=== PATIENT | male | born 1960 | race Caucasian/White ===

== ENCOUNTER 2016-03-26 01:06 | Inpatient (IN) | payer OTHER, MEDICAID ==
--- NOTE | 2016-03-26 01:28 | EDPHY ---
H & P Time Seen by Provider: 03/26/16 01:24 HPI/ROS: CHIEF COMPLAINT: Cardiac arrest HISTORY OF PRESENT ILLNESS: The patient is a 55-year-old man who comes in as a cardiac arrest by EMS. He is at the long-term with a history of schizophrenia and advanced melanoma. He is a full code. He apparently coded in front of the nursing staff at the long-term. They started CPR with chest compressions only. They did this for 3 minutes until pulses returned. He made the did not have any monitoring or rescue breaths. For EMS he was moderately combative and got a small amount of Versed. Here he is obtunded with occasional spontaneous respirations and hypotensive. REVIEW OF SYSTEMS: unable to obtain secondary to condition EXAM: GENERAL: Cachectic, unresponsive HEAD: Atraumatic, normocephalic. EYES: Pupils fixed and dry cornea , hemorrhagic conjunctiva. ENT: TMs normal, nares patent, oropharynx clear without exudates. Poor dentition Moist mucous membranes. NECK: Normal range of motion, supple without lymphadenopathy or JVD. LUNGS: Breath sounds clear to auscultation bilaterally with bagging HEART: Regular rate and rhythm without murmurs, rubs or gallops. ABDOMEN: Soft, nontender, normoactive bowel sounds. No guarding, no rebound. No masses appreciated. BACK: No CVA tenderness, no spinal tenderness, step-offs or deformities EXTREMITIES: No spontaneous movement, dry NEUROLOGICAL: No spontaneous movement, GCS 3 PSYCH: Unobtainable SKIN: Cold periphery Source: EMS, [facility] records Exam Limitations: Clinical condition - Medical/Surgical History Hx Asthma: No Hx Chronic Respiratory Disease: No Hx Diabetes: No Hx Cardiac Disease: No Hx Renal Disease: No Hx Cirrhosis: No Hx Alcoholism: No Hx HIV/AIDS: No Hx Splenectomy or Spleen Trauma: No Other PMH: schitzo affective, GERD, melenoma, DM, DVT, smoker - Family History Significant Family History: No pertinent family hx - Social History Smoking Status: Current every day smoker Constitutional: Initial Vital Signs Heart Rate 66 03/26/16 07:00 Respiratory Rate 22 H 03/26/16 07:00 Blood Pressure 109/58 L 03/26/16 07:00 O2 Sat (%) 100 03/26/16 07:00 Allergies/Adverse Reactions: lorazepam [From Ativan] Allergy (Intermediate, Verified 01/28/16 21:49) Other-Enter Comments Home Medications: Medication Instructions Recorded Betamethasone/Propylene Glyc 1 emery TP Q12 PRN 01/28/16 [Betamethasone Dp Aug 0.05% Crm] Desmopressin [DDAVP 0.1 mg (*)] 0.2 mg PO HS 01/28/16 Escitalopram Oxalate [Lexapro] 20 mg PO HS 01/28/16 Ibuprofen [Motrin (*)] 400 mg PO DAILY PRN 01/28/16 Magnesium Hydroxide [Milk of 30 ml PO DAILY PRN 01/28/16 Magnesia (*)] Metformin HCl 500 mg PO BIDMEAL 01/28/16 [place]-3 Fatty Acids [Fish Oil 1000 1,000 mg PO BID 01/28/16 mg (*)] Omeprazole [Prilosec 20 mg] 20 mg PO DAILY 01/28/16 Polyethylene Glycol 3350 [Miralax 17 gm PO DAILY 01/28/16 17 gm (*)] Polyethylene Glycol 3350 [Miralax 17 gm PO DAILY PRN 01/28/16 17 gm (*)] Sennosides/Docusate Sodium 2 each PO BID 01/28/16 [Senna-Docusate Sodium Tablet] Simvastatin [Zocor] 20 mg PO HS 01/28/16 buPROPion XL [Wellbutrin 150mg XL] 300 mg PO DAILY 01/28/16 cloZAPine [Clozaril (*)] 200 mg PO DAILY 01/28/16 Clotrimazole 1% [Lotrimin 1%] 1 emery TP BID 03/26/16 Ergocalciferol (Vitamin D2) 50,000 unit PO Q30D 03/26/16 [Vitamin D2] Herbals/Supplements -Info Only 1 ea PO DAILY 03/26/16 Loperamide HCl [Loperamide] 2 mg PO PRN PRN 03/26/16 Paliperidone [Invega 9mg ER (*)] 9 mg PO BID 03/26/16 cloZAPine [Clozaril (*)] 250 mg PO HS 03/26/16 Medical Decision Making - Diagnostics EKG Interpretation: An EKG obtained and was read and documented in trace view. Please see trace view for full reading and report. Sinus rhythm, no sign of ST elevation A right-sided EKG obtained and was read and documented in trace view. Please see trace view for full reading and report. No acute ischemic change Imaging: Results: CT scan of the head was obtained. The results of the study are negative. The study was read by Dr. Karel Sampson. I viewed the images myself on the PACS system. Results: CT scan of the chest was obtained. The results of the study are negative for PE , bilateral atelectasis versus infiltrate. The study was read by Dr. Karel Sampson. I viewed the images myself on the PACS system. Procedures: Procedure: Central line placement. Indication: Post arrest cooling. Emergency consent A timeout was observed and patients identity and correct procedure location confirmed. Full maximal sterile barrier technique was uses including cap, gown, sterile gloves, large sheet, hand washing and chlorhexidine prep. The right femoral vein was punctured with a 19 gauge finder needle, using ultrasound guidance then a cool line was placed using standard Seldinger technique. There were no complications. Blood return low pressure, dark blood. Patient tolerated procedure well. The procedure was performed by myself. Intubation: emergent intubation. While manually bagging the patient and maintaining the airway, The patient was sedated with 20 mg of Etomidate and paralyzed with 100 mg of rocuronium. A 7.5 endotracheal tube was placed using the 3. Mac. It was placed at 23 cm at the teeth. Placement was confirmed by direct visualization, good color change, and bilateral breath sounds with absent gastric sounds. Chest x-ray is pending. Saturations improved significantly and the procedure was successful. Procedure: Arterial line placement. Indication: Art line. Emergency consent. A timeout was observed and patients identity and correct procedure location confirmed. Full maximal sterile barrier technique was uses including cap, gown, sterile gloves, large sheet, hand washing and chlorhexidine prep. The area anesthetized with 1% lidocaine. The left femoral artery was punctured with a 19 gauge finder needle, then a arterial line was placed using standard Seldinger technique. There were no complications. Blood return low pressure, dark blood. Patient tolerated procedure well. The procedure was performed by myself. ED Course/Re-evaluation: Chart completed during downtime procedure. I discussed the case with Dr. Pili Frias. We will initially a cooling. We agreed on CT scan angio to rule out PE considering the patient's poor right ventricular function despite his elevated creatinine. We will continue to hydrate. 2:10 a.m. Pili Frias arrived. We discussed the case. I placed a central line in his right groin for cooling and initiation HACA protocol. Also placed a arterial line. 2:50 a.m. echocardiogram reveals right systolic dysfunction. Right-sided EKG reveals no acute STEMI. 2:55 a.m. Patient's pupils are fixed. Patient's troponin is negative. Spoke with Dr. Clinton who will admit. The patient is in septic shock and has received his 30 per kilos bolus and started on cefepime. Repeat lactate ordered. He is on Levophed and we are starting vasopressin. Differential Diagnosis: Partial list of the Differential diagnosis considered include but were not limited to; congestive heart failure, pneumonia, arrhythmia, sepsis and although unlikely based on the history and physical exam, I also considered seizure, drug overdose. Critical Care Time: I spent a total of 45 minutes of critical care time in obtaining history, performing a physical exam, bedside monitoring of interventions, collecting and interpreting tests and discussion with consultants but not including time spent performing procedures. - Data Points Laboratory Results: Laboratory Results 03/26/16 01:20 03/26/16 01:20 Microbiology Results: MICROBIOLOGY 03/26/16 01:55 Blood Blood Culture - Preliminary Medications Given: Discontinued Medications Fentanyl (Sublimaze) 50 mcg IVP ONCE ONE Stop: 03/26/16 02:01 Last Admin: 03/26/16 09:36 Dose: Not Given Norepinephrine 4 mg/ Dextrose 500 mls @ 0 mls/hr IV ONCE ONE; Per Protocol PRN Reason: Protocol Stop: 03/26/16 02:01 Last Admin: 03/26/16 09:27 Dose: 500 mls Cefepime HCl 1 gm/ Dextrose 50 mls @ 100 mls/hr IV Q12 ALENA Stop: 04/25/16 02:59 Last Admin: 03/27/16 09:13 Dose: 50 mls Vancomycin/Sodium Chloride (Vancomycin 1 Gm (Premix)) 250 mls @ 250 mls/hr IV ONCE ONE Stop: 03/26/16 03:59 Last Admin: 03/26/16 09:44 Dose: Not Given Sodium Chloride (Ns) 1,000 mls @ 0 mls/hr IV ONCE ONE PRN Reason: Wide Open Stop: 03/26/16 02:01 Last Admin: 03/26/16 09:44 Dose: Not Given Potassium Chloride (Potassium Cl 20 Meq (Premix)) 50 mls @ 50 mls/hr IV ONCE ONE Stop: 03/26/16 10:38 Last Admin: 03/26/16 09:50 Dose: 50 mls Potassium Chloride (Potassium Cl 10 Meq (Premix)) 50 mls @ 50 mls/hr IV ONCE ONE Stop: 03/26/16 18:29 Last Admin: 03/26/16 18:01 Dose: 50 mls Potassium Chloride (Potassium Cl 20 Meq (Premix)) 50 mls @ 25 mls/hr IV ONCE ONE Stop: 03/26/16 19:29 Last Admin: 03/26/16 17:12 Dose: 50 mls Potassium Chloride (Potassium Cl 20 Meq (Premix)) 50 mls @ 50 mls/hr IV Q1H ALENA Stop: 03/27/16 05:16 Last Admin: 03/27/16 05:27 Dose: 50 mls Miscellaneous Information (Message To [facility]) 1 ea MISC ONCE ONE Stop: 03/26/16 02:01 Last Admin: 03/26/16 10:42 Dose: Not Given Sodium Bicarbonate (Sodium Bicarbonate) 50 meq IVP ONCE ONE Stop: 03/26/16 09:19 Last Admin: 03/26/16 09:43 Dose: Not Given Sodium Bicarbonate (Sodium Bicarbonate) 50 meq IV ONCE ONE Stop: 03/26/16 10:01 Last Admin: 03/26/16 09:30 Dose: 50 meq Departure - Departure Disposition: [facility] Acute Clinical Impression: Cardiac arrest, Septic shock Condition: Critical
[2016-03-26 01:30] LABS: ABSOLUTE NRBC COUNT 0.02 10^3/uL (0-0.01); ADD DIFF? YES; ADD MORPH? NO; ATYPICAL LYMPHOCYTE FLAG 200 (0-99); FRAGMENT RBC FLAG 0 (0-99); HEMATOCRIT 52.5 % (40.0-51.0); HEMOGLOBIN 17.3 g/dL (13.7-17.5); LEFT SHIFT FLG 300 (0-99); LIPEMIA HEMOLYSIS FLAG 80 (0-99); MEAN CELL HEMOGLOBIN 29.4 pg (27.9-34.1); MEAN CELL VOLUME 89.1 fL (81.5-99.8); MEAN PLATELET VOLUME 9.5 fL (8.7-11.7); NRBC-AUTO% 0.1 % (0.0-0.2); PLATELET CLUMPS FLAG 0 (0-99); PLATELET COUNT 385 10^3/uL (150-400); RED BLOOD CELL COUNT 5.89 10^6/uL (4.40-6.38); RED CELL DISTRIBUTION WIDTH 13.7 % (11.5-15.2)
[2016-03-26] MEDS ORDERED: IOPAMIDOL (ISOVUE 370) 100 ML BTL IV ONE (01:30)
[2016-03-26 01:31] LABS: ADD SCAN? NO
[2016-03-26 01:43] LABS: ALANINE AMINOTRANSFERASE 44 IU/L (21-72); ALBUMIN 3.5 g/dL (3.5-5.0); ALKALINE PHOSPHATASE 182 IU/L (38-126); ANION GAP 22 mEq/L (8-16); ASPARTATE AMINOTRANSFERASE 31 IU/L (17-59); BILIRUBIN,TOTAL 0.7 mg/dL (0.1-1.4); BILIRUBIN-CONJUGATED 0.6 mg/dL (0.0-0.5); BILIRUBIN-UNCONJUGATED 0.1 mg/dL (0.0-1.1); CALCIUM 11.5 mg/dL (8.5-10.4); CARBON DIOXIDE 20 mEq/l (22-31); CHLORIDE 97 mEq/L (97-110); ETHANOL SERUM < 10 mg/dL (0-10); GLOMERULAR FILTRATION RATE 22; GLUCOSE 198 mg/dL (70-100); POTASSIUM 4.4 mEq/L (3.5-5.2); SODIUM 139 mEq/L (134-144); TOTAL PROTEIN 6.7 g/dL (6.3-8.2)
[2016-03-26 01:54] LABS: TROPONIN I < 0.012 ng/mL (0-0.034)
[2016-03-26] MEDS ORDERED: NS 250 ML IV PRN (02:00)
[2016-03-26] MEDS ORDERED: fentaNYL 100 MCG/2 ML INJ IVP ONE (02:00)
[2016-03-26] MEDS ORDERED: NOREPINEPHRINE BITARTRATE 4 MG in D5W 500 ML IV ONE (02:00)
[2016-03-26] MEDS ORDERED: NS 1,000 ML IV SCH ×2 (02:00→03:00)
[2016-03-26] MEDS ORDERED: MIDAZOLAM 2 MG/2 ML VIAL IVP PRN (02:00)
[2016-03-26] MEDS ORDERED: NS 1,000 ML IV ONE (02:00)
[2016-03-26] MEDS ORDERED: niCARdipine/NACL 200 ML IV PRN (02:00)
[2016-03-26] MEDS ORDERED: VECURONIUM BROMIDE 50 MG in D5W 50 ML IV SCH (02:00)
[2016-03-26] MEDS ORDERED: PROPOFOL/EMULSION 50 ML IV SCH (02:00)
[2016-03-26] MEDS ORDERED: NARCOTIC DRIP BAG-TOTAL ALL TYPES IV PRN (02:00)
[2016-03-26] MEDS ORDERED: USE *INSINTENS FOR HYPOGLYCEMIA ORDERS MISC ONE (02:00)
[2016-03-26] MEDS ORDERED: VANCOMYCIN HCL/NORMAL SALINE 250 ML IV ONE (03:00)
[2016-03-26] MEDS ORDERED: MAGNESIUM SULF 2 GM/WATER 50 ML BAG IV ONE (03:12)
[2016-03-26] MEDS ORDERED: ROCURONIUM 100 MG/10 ML VIAL ONE (03:21)
[2016-03-26] MEDS ORDERED: ETOMIDATE 40 MG/20 ML INJ ONE (03:21)
--- NOTE | 2016-03-26 05:09 | CPEKG ---
Heart Rate: 88 RR Interval: 682 P-R Interval: 148 QRSD Interval: 104 QT Interval: 396 QTC Interval: 480 P [place]: 57 QRS [place]: 102 T Wave [place]: 69 EKG Severity - ABNORMAL ECG - EKG Impression: SINUS RHYTHM EKG Impression: PROBABLE RIGHT VENTRICULAR HYPERTROPHY EKG Impression: BORDERLINE PROLONGED QT INTERVAL Electronically Signed By: Nishant Lester 27-Mar-2016 08:34:25
--- NOTE | 2016-03-26 05:10 | GHP ---
[f rep st] HISTORY AND PHYSICAL DATE OF ADMISSION: 03/26/2016 HISTORY OF PRESENT ILLNESS: The patient is a 55-year-old gentleman, with a history of schizoaffective disorder, malignant melanoma, and hyponatremia, who collapsed in front of the nursing station today at [place], where he has lived since 2013. Nurse felt no pulse, began CPR, got a pulse back. EMS was summoned. He was brought to the emergency room. Here he was intubated. Patient is unresponsive despite no sedation at being intubated. His father is in the waiting room. He is his MD power of compliance attorney, who confirms full code. He does have a MOLST form. It sounds like he got chemotherapy last week. He has been having diarrhea. They were sending his C diff from the hospital. In the emergency department he had a bedside echo which showed hypokinetic RV, but still moving his left ventricle fine. He had a CT pulmonary embolism protocol given his collapse. It was negative for PE. There is possibly a small right lower lobe infiltrate, images interpreted by me, but there is no pneumothorax or other significant derangement. He is noted to be aneuric with an elevated BUN and creatinine of 58 and 3.0. Baseline is unknown given the current computer down time. REVIEW OF SYSTEMS: Complete 10-point review of systems could not be conducted given the patient's intubated and unresponsive status. ALLERGIES: Ativan. MEDICATIONS: Vitamin D, Wellbutrin, clotrimazole cream, fish oil, sounds like p.r.n. Imodium, milk of magnesia, MiraLAX, Clozaril, desmopressin, escitalopram , omeprazole, probiotics, simvastatin, metformin, Invega, betamethasone cream, ibuprofen. PAST MEDICAL HISTORY: 1. Hyponatremia but appears to be primary polydipsia. 2. Malignant melanoma status post incision of his right axilla. 3. Schizoaffective disorder. 4. DVT. 5. Osteoarthritis. 6. Reflux. 7. Nicotine dependence. 8. Possible diabetes. SOCIAL HISTORY: Lives in [place]. Lifelong smoker. Alcohol unknown. FAMILY HISTORY: Father is living. PHYSICAL EXAMINATION: VITAL SIGNS: Presenting vitals: The patient is hypotensive, afebrile, pulse 100s. GENERAL: He is intubated, sedated. Unresponsive. HEENT: Pupils are unreactive. His left eye appears to be deviated laterally. Mucous membranes are very dry. NECK: Supple without lymphadenopathy or JVD. LUNGS: Clear to auscultation anterolaterally. HEART: S1, S2. ABDOMEN: Soft. Bowel sounds are normal. There is no rebound or guarding. It is not rigid. EXTREMITIES: Lower extremities without edema. He has onychomycosis. SKIN: On his right axilla he has a well-healed surgical incision. NEUROLOGIC: The patient is unresponsive. Currently cool. LABS: ABG after intubation shows a pH 7.13 with a pCO2 of 53, pO2 of 330. Serum bicarb of 19. White count 17, hematocrit 52, platelets are 385,000. Sodium 139, potassium 4.4, chloride 97, bicarb 20, BUN 58, creatinine 3.0, glucose 198. Calcium is elevated at 11.5. Phosphorus is very elevated at 11. LFTs are relatively normal. Troponin is less than 0.012. Lipase elevated at 684. CT PE showed no PE. The lung parenchyma images interpreted by me, shows possible small right-sided infiltrate. EKG interpreted by me shows sinus at 88 with right axis deviation, slightly prolonged QRS. Borderline prolonged QT. No ST-T wave changes. Right side leads shows no ST elevation in V4R. Discussed the case with Dr. Chino Castro and Dr. Pili Frias. ASSESSMENT/PLAN: The patient is a 55-year-old gentleman, who presents with cardiac arrest. 1. Cardiac arrest. It is not clear if this actually represents cardiac arrest , but if it is appears to be consistent with either arrhythmia PEA (pulseless electrical activity). His absence of quick recovery argues against PEA, argues against the primary arrhythmogenic syncope and collapse. The patient does not have pulmonary embolism. He does not appear to be in acute coronary syndrome. His left ventricle and right ventricle are moving well on the echo. His profound notable finding is hypovolemia with acute kidney injury. He is being aggressively volume-resuscitated and beginning to make urine. For the time being the patient is profoundly hypovolemic and had PEA. 2. Question sepsis. I do not think the patient has sepsis as his primary issue. He does have a leukocytosis and a possible source of infection. He received cefepime 1 time, 1 g of vancomycin to follow. Will continue cefepime for presumed Healthcare-associated pneumonia (Hcap). 3. Acute kidney injury. The patient was having diarrhea. this is almost certainly pre renal . Will resuscitate and follow. He did receive contrast. This will complicate his renal failure, which was not emergent. 4. Metabolic respiratory acidosis. His vent rate has been turned up. 5. Cardiovascular. We will cycle his troponins. It will certainly rise given CPR in the current setting, but does not appear to be consistent with acute coronary syndrome (ACS). 6. Schizoaffective disorder. Continue his Clozaril when medications have been reconciled. 7. Prophylaxis. Subcu heparin three times daily. DISPOSITION: ICU. CODE: Full. /[id number]/MODL MTDD
--- NOTE | 2016-03-26 06:53 | CPEKG ---
Heart Rate: 85 RR Interval: 706 P-R Interval: 164 QRSD Interval: 104 QT Interval: 448 QTC Interval: 533 P [place]: 54 QRS [place]: 95 T Wave [place]: 51 EKG Severity - ABNORMAL ECG - EKG Impression: SINUS RHYTHM EKG Impression: BORDERLINE RIGHT AXIS DEVIATION EKG Impression: BORDERLINE T ABNORMALITIES, ANT-LAT LEADS EKG Impression: PROLONGED QT INTERVAL Electronically Signed By: Nishant Lester 27-Mar-2016 08:34:29
[2016-03-26] MEDS ORDERED: D5W 1,000 ML IV SCH (07:33)
[2016-03-26] MEDS ORDERED: INSULIN REGULAR HUMAN 100 UNIT in NS 100 ML IV SCH (07:33)
[2016-03-26] MEDS ORDERED: D50W 25 GM/50 ML SYR IVP PRN (07:33)
[2016-03-26 07:37] LABS: PLATELET ESTIMATE ADEQUATE (ADEQ)
[2016-03-26 07:39] LABS: BACTERIA TRACE /hpf (NONE SEEN); COLOR AMBER; HYALINE CASTS 25-50 /lpf (0-1); LEUKOCYTE ESTERASE,URINE NEGATIVE (NEGATIVE); MUCUS 1+ /lpf (NONE-1+); NITRITE,URINE NEGATIVE (NEGATIVE); RBC,URINE 50-182 /hpf (0-3)
[2016-03-26] MEDS ORDERED: PROTOCOL MAGNESIUM 1 DOSE IV PRN (07:46)
[2016-03-26] MEDS ORDERED: PROTOCOL POTASSIUM 1 DOSE MISC PRN (07:46)
[2016-03-26 07:55] LABS: ADD DIFF? YES; ADD MORPH? NO; FRAGMENT RBC FLAG 10 (0-99); HEMATOCRIT 40.5 % (40.0-51.0); HEMOGLOBIN 13.3 g/dL (13.7-17.5); LIPEMIA HEMOLYSIS FLAG 80 (0-99); MEAN CELL HEMOGLOBIN 28.9 pg (27.9-34.1); MEAN CELL HEMOGLOBIN CONCENTR. 32.8 g/dL (32.4-36.7); MEAN PLATELET VOLUME 8.8 fL (8.7-11.7); PLATELET CLUMPS FLAG 0 (0-99); PLATELET COUNT 274 10^3/uL (150-400)
[2016-03-26 07:55] LABS: BASE EXCESS -12.4 mEq/L (-2.5-2.5); BICARBONATE 17 mEq/L (22-26); MEASURED OXYGEN SATURATION 99 % (92-95); PCO2 53 mmHg (34-38); PO2 329 mmHg (65-75); TCO2 19 mEq/L (23-27)
[2016-03-26 07:56] LABS: ASSIST CONTROL YES
[2016-03-26 07:56] LABS: ATYPICAL LYMPHOCYTE FLAG 160 (0-99); LEFT SHIFT FLG 300 (0-99)
[2016-03-26 07:57] LABS: ADD SCAN? NO
[2016-03-26 07:57] LABS: O2 CONCENTRATIION 100 % (0-100); P/F RATIO 329 RATIO; TOTAL RATE 16
[2016-03-26 08:00] LABS: MACROCYTES 1+; PLATELET ESTIMATE ADEQUATE (ADEQ); TOXIC VACUOLIZATION PRESENT
[2016-03-26 08:02] LABS: ANION GAP 13 mEq/L (8-16); CALCIUM 8.1 mg/dL (8.5-10.4); CARBON DIOXIDE 15 mEq/l (22-31); CHLORIDE 110 mEq/L (97-110); CREATININE 2.3 mg/dL (0.7-1.3); GLOMERULAR FILTRATION RATE 29; GLUCOSE 255 mg/dL (70-100); MAGNESIUM 2.9 mg/dL (1.6-2.3); POTASSIUM 3.7 mEq/L (3.5-5.2); SODIUM 138 mEq/L (134-144)
[2016-03-26] MEDS: CEFEPIME HCL 1 GM in D5W 50 ML IV SCH ×3 (08:11→21:42)
[2016-03-26 08:14] LABS: TROPONIN I < 0.012 ng/mL (0-0.034)
[2016-03-26] MEDS ORDERED: fentanYL/NACL/100 ML BAG IV ONE (08:45)
--- NOTE | 2016-03-26 08:48 | GCON ---
[f rep st] CONSULTATION CARDIOLOGY CONSULT DATE OF CONSULTATION: 03/26/2016 He does see Oncology at [facility]. CHIEF COMPLAINT: Cardiac arrest. HISTORY OF PRESENT ILLNESS: The patient is a 55-year-old male with schizoaffective disorder, multip le myeloma in the midst of chemotherapy, chronic hyponatremia, ongoing tobacco abuse. History is ob tained from discussion with the patient's father, who is the medical power of district attorney, and scant re cords from [facility] as [facility] is currently down. The patient's father states that he "may have some heart problems and may have had a heart attack at some point in the past." He cannot give me any more details about this or whether the patient has stents or a history of arrhythmia. The patient underwent his 2nd chemotherapy treatment last week f or melanoma and was not doing well after this, mostly with diarrhea and shortness of breath by rani rodriguez from [place]. Late this evening, he was at the nurses station there and collapsed. On e of the nurses initiated CPR. When EMS arrived, he had a pulse and did not receive ACLS drugs or d efibrillation. He was brought to the ER and intubated by Dr. Castro. He had no purposeful movemen ts upon arrival, and therefore HACA protocol was initiated in the emergency department. The father does not think that the patient has been complaining of chest pain or other cardiac sympt oms except for perhaps shortness of breath as mentioned. REVIEW OF SYSTEMS: Unable as the patient is currently intubated and unresponsive. ALLERGIES: Lorazepam. PAST MEDICAL HISTORY: 1. Schizoaffective disorder, resides at [place]. 2. Multiple myeloma, undergoing chemotherapy. 3. History of chronic hyponatremia. 4. Diabetes, possibly related to medications. 5. History of venous thrombosis. 6. Arthritis. 7. GERD. 8. Nicotine dependence. 9. Possible coronary disease, although details are not known. MEDICATIONS: At this time are also not known. SOCIAL HISTORY: The patient does smoke cigarettes. He does not drink alcohol. FAMILY HISTORY: Father has mitral regurgitation. Mother of what sounds like cardiac complicat ions related to rheumatoid arthritis. PHYSICAL EXAM: VITAL SIGNS: Blood pressure is currently 80/50 on max dose Levophed, heart rate 85, oxygen saturation 99% on the vent. GENERAL: This is a disheveled, ill-appearing middle-aged male. HEENT: His pupils are fixed and dilated. He does not withdraw to painful stimulus. CARDIAC: Re gular rate and rhythm without murmur, rub, or gallop. LUNGS: Clear anteriorly and laterally. ABDO MEN: Distended but soft. Positive bowel sounds. EXTREMITIES: Cool without edema. He has onychom ycosis. LABORATORY DATA: White count is 16.9, hematocrit 52.5, and platelets are 385. Troponin negative. LFTs normal except for an alkaline phosphatase of 182. Lipase is also elevated at 648. Sodium 139, potassium 4.4, chloride 97, bicarb 20, BUN 58, creatinine 3.0 with an unknown baseline. Glucose is 198. Chest x-ray is pending post intubation. EKG shows sinus rhythm without acute ST abnormalities. His QT is borderline prolonged. His right-s ided EKG does not show ischemic changes. By report, head CT is negative for acute abnormality and chest CT is negative for pulmonary embolism . Bedside echo, reviewed by me: LV is normal in systolic function with no ischemic wall motion abnorm alities. His right ventricle is mildly dilated with mildly reduced systolic function. No significa nt valvular disease and no pericardial effusion. ASSESSMENT AND PLAN: A 55-year-old male with an unclear cardiac history status post witnessed arres t at [place]. This does not appear to be a primary acute coronary syndrome event, but arrhythmia is still on the differential diagnosis given his slightly prolonged QT interval. He has not had ec topy here. First troponin is negative. Other possibilities include metabolic derangement, although his current laboratories appear fairly normal except for his creatinine. It is possible that his p otassium at a cellular level is not normal, however. Would also check a magnesium. He could have h ad a primary respiratory event as well or primary neurological event. 1. Arrest: As discussed above. At this point, HACA protocol has been initiated. He will be trans ferred to the ICU. No indication for emergent cardiac catheterization, both because his EKG is denae schemic and his creatinine is 3. He is currently requiring significant vasopressor support. He als o does meet criteria for sepsis protocol. 2. Renal failure: Unknown baseline. He has been given fluids in the emergency department. We dirk suarez need to follow his electrolytes and his creatinine closely, may require renal consultation. 3. Malignant melanoma: He is followed at [facility]. Prognosis is not clear at this time. We will need to discuss with them. He was having significant diarrhea, so whether a com plication of his chemotherapy somehow is related to his arrest is possible. 4. Schizoaffective disorder: He is currently disabled and residing at [place]. The case was discussed with Dr. Castro, Dr. Clinton, and the patient's father who is the medical pow er of district attorney. At this time, his prognosis appears very guarded given his unfavorable neurological status. We will follow with you. /[id number]/MODL
[2016-03-26] MEDS ORDERED: FAMOTIDINE 20 MG/NACL 50 ML IV SCH (09:00)
[2016-03-26] MEDS: CHLORHEXIDINE GLUCONATE 15 ML UDL PO SCH ×2 (09:00→21:42)
[2016-03-26 09:09] LABS: BASE EXCESS -11.1 mEq/L (-2.5-2.5); BICARBONATE 16 mEq/L (22-26); MEASURED OXYGEN SATURATION 96 % (92-95); PCO2 40 mmHg (34-38); PO2 100 mmHg (65-75); TCO2 17 mEq/L (23-27)
[2016-03-26 09:18] LABS: POTASSIUM 3.7 mEq/L (3.5-5.2)
[2016-03-26] MEDS ORDERED: NA BICARBONATE 50 MEQ/50 ML VIAL ONE (09:18)
[2016-03-26] MEDS ORDERED: SODIUM BICARBONATE 50 MEQ/50 ML SYR IVP ONE (09:18)
[2016-03-26] MEDS: MIDAZOLAM HCL 50 MG in D5W 50 ML IV PRN ×2 (09:32→21:55)
[2016-03-26] MEDS ORDERED: POTASSIUM Cl (KCl) 50 ML IV ONE ×3 (09:39→17:30)
[2016-03-26] MEDS ORDERED: NA BICARBONATE 50 MEQ/50 ML VIAL IV ONE (10:00)
--- NOTE | 2016-03-26 10:01 | ECHO ---
[id number] + + [address] : : [place] [address] : : [phone] + + Adult Echocardiographic Report + --------+ :Name: PORTER GAN DStudy Date: 03/26/2016 07:55 AM : : Hospital Admission Number: [id number] Locat ion: ER2: :: 1960 Gender: Male : :Age: 55 yrs Race: WH : :Reason For Study: Eval LV Fx : :History: Cardiac Alert ER Stat : + --------+ MMode/2D Measurements \T\ Calculations IVSd: 0.97 cm LVIDd: 4.4 cm FS: 55.6 % LA dimension: 3.7 cm LVPWd: 1.1 cm LVIDs: 2.0 cm EDV(Teich): 88.7 ml ESV(Teich): 12.2 ml EF(Teich): 86.3 % Normal Measurement Values: + + :LVIDd (3.5-5.7cm) IVSd (0.6-1.1cm) LVPWd (0.6-1.1cm) Aortic Root (2.0-3.7cm)Left Atrium (1.5-4.0cm): :LV Vol(d) (76-115ml) LV Vol(s) (29-48ml) Ejec Fraction (50-65%)PV Daniel (0.6- 1.2m/s) TV Daniel (0.4-1.0m/s) : :MV E Daniel (0.8-1.0m/s)MV A Daniel (0.3-1.0m/s)LVOT Daniel (0.7-1.2m/s) Asc Ao Daniel ( 0.9-1.8m/s) : + + Left Ventricle The left ventricle is normal in size. There is normal left ventricular wall thickness. The left ventricular ejection fraction is normal. The left ventricular wall motion is normal. Right Ventricle The right ventricle is normal in size and function. Atria The left atrial size is normal. Right atrial size is normal. Mitral Valve The mitral valve is normal in structure and function. There is no evidence of mitral valve prolapse. There is no mitral valve stenosis. There is no mitral regurgitation noted. Tricuspid Valve The tricuspid valve is normal in structure and function. No tricuspid regurgitation. Aortic Valve The aortic valve is normal in structure and function. There is no aortic stenosis. There is no aortic insufficiency. Pulmonic Valve The pulmonic valve is normal in structure and function. There is no pulmonic valvular regurgitation. Great Vessels The aortic root is normal size. Pericardium/Pleural There is no pericardial effusion. Conclusion A complete two-dimensional transthoracic echocardiogram was performed (2D, M-mode, Doppler and color flow Doppler). The left ventricular ejection fraction is normal. The left ventricular wall motion is normal. The right ventricle is normal in size and function. The mitral valve is normal in structure and function. The tricuspid valve is normal in structure and function. The aortic valve is normal in structure and function. The aortic root is normal size. There is no pericardial effusion. This was during a emergent situation and Dr Pili Frias was in attendance to view for poor LV function or pericardial effusion. Final Reading Physician: Jo Boston signed on 03/26/2016 10:00 AM Ordering Physician: Alexis Clinton Performed By: Ramon Briones, CS
--- NOTE | 2016-03-26 10:33 | CT ---
Noncontrast Head CT 0 126 hours History: Unresponsive. Recent cardiac arrest and intubation. Technique: Standard noncontrast head CT protocol utilizing axial images was acquired through the ca lvarium. Images were reconstructed in multiple planes as well. Dose reduction techniques were utiliz ed. Comparison the prior CT study from 01/28/2016. Findings: The cerebral parenchyma has a normal attenuation throughout. There are no masses, intracra nial hemorrhage, subdural collections, or evidence of recent cerebral infarction. The bones are unr emarkable. The paranasal sinuses are clear. There is some loss of attenuation involving the left ant erior khadra. It is indeterminate if this could be related to artifact. Impression: 1. No acute intracranial abnormality seen. 2. Relative hypodensity involving the left anterior khadra that could just be related to artifact. If symptoms persist, consider repeat CT imaging or MRI as clinically directed. The study was performed as an emergency on-call case and discussed by telephone with Dr. Castro at 0 145 hrs. The final interpretation is concordant with the original communication.
--- NOTE | 2016-03-26 10:41 | CT ---
CT Pulmonary Angiogram 0 134 hours Clinical Indications: Unresponsive. Cardiac arrest and subsequent intubation. Technique: Thinly collimated multidetector helical CT imaging was performed through the chest while 75 mL Isovue-370 were injected intravenously without complication. The images were reconstructed i n multiple planes. Dose reduction techniques were utilized. Findings: CT Angiogram: There is no evidence of intraluminal thrombus within the pulmonary arterial system. T he thoracic aorta has a normal contour without evidence of aneurysm or dissection. There is no gene cardial effusion. The cardiac chambers are normal in appearance. CT Chest: There is poor inspiration with compressive changes at the lung bases right side greater th an left. Superimposed patchy infiltrates are felt to be possible but less likely were prominent on t he right. There are no pulmonary nodules. There has been development of a mildly prominent lymph no de in the right axilla anteriorly measuring about 20 x 8 mm on series 5, image 89 as well as nodular ity right lateral chest wall and location of previous surgery on image 104 measuring 17 x 12 mm.. T he visualized upper abdominal structures are unremarkable during arterial phase of imaging. Borderli ne splenomegaly is suspected. Skeletal system: There is stable minimal compression superior endplate of T4. Thickened trabecula ar e once again noted involving C7, T2, T7, and T10 compatible with incidental hemangiomas. There are n o lytic or sclerotic osseous lesions of significance. Impression: 1. No evidence of pulmonary embolus using CT protocol. 2. Poor inspiration with compressive changes at the lung bases right side greater than left. Superim posed mild patchy infiltrate is felt to be possible but less likely especially at the right lung bas e posteriorly. 3. Nodularity right lateral chest wall with mildly prominent lymph node right axilla. In this patien t with history of melanoma, consider possible reactive node secondary to recent surgical procedure v ersus possibility of local metastatic disease. The study was performed as an emergency on-call case and discussed by telephone with Dr. Castro at 0 155 hrs. The final interpretation is concordant with the original communication.
--- NOTE | 2016-03-26 10:54 | SOAPPROG ---
SOSTEFANY Progress Note Assessment/Plan: Assessment: 1. cardiac arrest..? etiology..no clear cut cardiac issues identified [facility] no past h/o cardiac problems continue HACA protocol..prognosis unknown Plan:1. HACA 03/26/16 10:51 Subjective: pt on HACA and stable..answered question to family member..no evidence of acs,cm , arrthymias..hemodynamically stable at this time Objective: Vital Signs Temp Pulse Resp BP Pulse Ox 62 24 H 104/66 99 03/26/16 10:00 03/26/16 10:00 03/26/16 10:00 03/26/16 10:00 Laboratory Results 03/26/16 05:00 03/26/16 08:30 Physical Exam - Physical Exam Respiratory: lungs clear (anteriorly) Cardiac/Chest: regular rate, rhythm, No edema ICD10 Worksheet Patient Problems: Problems Problem Status Onset Cardiac arrest Acute Septic shock Acute Bacteremia Acute Hyponatremia Acute Schizophrenia Acute
[2016-03-26] MEDS: NOREPINEPHRINE BITARTRATE 4 MG in D5W 500 ML IV PRN (11:14)
[2016-03-26 11:27] LABS: BASE EXCESS -8.2 mEq/L (-2.5-2.5); BICARBONATE 17 mEq/L (22-26); MEASURED OXYGEN SATURATION 97 % (92-95); PCO2 37 mmHg (34-38); PO2 119 mmHg (65-75); TCO2 18 mEq/L (23-27)
--- NOTE | 2016-03-26 11:34 | GCON ---
[f rep st] CONSULTATION ONLINE ADVERTISING DIRECTOR CONSULTATION REASON FOR ADMISSION: Respiratory failure, status post cardiac arrest, HACA protocol. HISTORY OF PRESENT ILLNESS: The patient is a 55-year-old, white male with extensive past medical hi story including schizoaffective disorder, DVT, melanoma, hyponatremia with polydipsia, tobacco abuse , gastroesophageal reflux disease, osteoarthritis. He apparently collapsed at the nurses station at [place]. CPR was begun, EMS was called. He was brought to the emergency room, subsequently int ubated, placed on mechanical ventilation. He was admitted to the intensive care unit and placed on HACA protocol. He is currently not sedated, unresponsive, on mechanical ventilation, and on HACA pr otocol. All history is gleaned from the medical record. PAST MEDICAL HISTORY: Significant for diabetes, gastroesophageal reflux disease, schizoaffective di sorder, hyponatremia, malignant melanoma, DVT, osteoarthritis. SOCIAL HISTORY: Unknown with the exception of tobacco abuse, unlikely alcohol use. MEDICATIONS: At home include ibuprofen, betamethasone cream, Invega, metformin, simvastatin, probio tics, omeprazole, escitalopram, desmopressin, Clozaril, MiraLAX, milk of magnesia, vitamin D, Wellbu bebeto. PHYSICAL EXAM: VITAL SIGNS: Blood pressure is 117/63, pulse 65, respirations 22, oxygen saturation is 100% on mechanical ventilation. GENERAL: Well-developed 55-year-old male, who is obtunded, on mechanical ventilation. HEENT: Eyes: Pupils are wide and unreactive. Throat: Endotracheal tube is in good position. NECK: Supple. There is no cervical adenopathy. HEART: Regular rate and rhy thm with a 2/6 systolic murmur at the left sternal border without radiation. LUNGS: Diminished luca ath sounds but no wheeze. ABDOMEN: Soft, nontender. Bowel sounds are present in all 4 quadrants. EXTREMITIES: No clubbing, cyanosis, or edema. LABORATORY DATA: White count 11.9, hemoglobin 13, hematocrit 40, platelet count is 274. Sodium 138 , potassium 3.7, chloride 110, CO2 of 17, BUN 51, creatinine 2.3, glucose is 255. Lipase is elevate d at 648. Urinalysis pH 5, specific gravity 1.025, 10-15 WBCs. Urine drug screen is negative. Art erial blood gas: PH 7.13, pCO2 of 53, pO2 of 329, bicarb 19, oxygen saturation is 99%. IMPRESSION: 1. Status post cardiac arrest. 2. Hypothermia after cardiac arrest (HACA) protocol. 3. Respiratory failure. 4. Schizoaffective disorder. 5. History of melanoma. 6. History of hyponatremia. 7. Nicotine abuse. RECOMMENDATIONS: 1. Continue HACA per protocol. 2. Continue mechanical ventilation for now. 3. Close neurologic and cardiovascular monitoring. 4. DVT and PE prophylaxis. 5. Stress ulcer prophylaxis. /[id number]/MODL
[2016-03-26 12:49] LABS: MAGNESIUM 3.1 mg/dL (1.6-2.3); POTASSIUM 3.8 mEq/L (3.5-5.2)
[2016-03-26 14:16] LABS: BASE EXCESS -6.7 mEq/L (-2.5-2.5); BICARBONATE 18 mEq/L (22-26); MEASURED OXYGEN SATURATION 96 % (92-95); PCO2 29 mmHg (34-38); PO2 72 mmHg (65-75); TCO2 19 mEq/L (23-27)
[2016-03-26 14:17] LABS: ASSIST CONTROL YES; O2 CONCENTRATIION 40 % (0-100); P/F RATIO 180 RATIO
[2016-03-26 14:18] LABS: TOTAL RATE 24
[2016-03-26 14:27] LABS: APTT 29.2 SEC (23.0-38.0); INR 1.27 (0.83-1.16); PROTIME(PATIENT) 15.9 SEC (12.0-15.0)
[2016-03-26 14:31] LABS: % IMMATURE GRANULYOCYTES 2.1 % (0.0-1.1); ABSOLUTE IMMATURE GRANULOCYTES 0.18 10^3/uL (0.00-0.10); ADD DIFF? NO; ADD MORPH? NO; ADD SCAN? YES; FRAGMENT RBC FLAG 20 (0-99); HEMATOCRIT 38.1 % (40.0-51.0); HEMOGLOBIN 12.8 g/dL (13.7-17.5); LIPEMIA HEMOLYSIS FLAG 80 (0-99); MEAN CELL HEMOGLOBIN 29.2 pg (27.9-34.1); MEAN CELL HEMOGLOBIN CONCENTR. 33.6 g/dL (32.4-36.7); MEAN PLATELET VOLUME 8.8 fL (8.7-11.7); PLATELET CLUMPS FLAG 20 (0-99); PLATELET COUNT 232 10^3/uL (150-400); RED BLOOD CELL COUNT 4.38 10^6/uL (4.40-6.38); RED CELL DISTRIBUTION WIDTH 14.1 % (11.5-15.2)
[2016-03-26 14:35] LABS: ATYPICAL LYMPHOCYTE FLAG 210 (0-99); LEFT SHIFT FLG 300 (0-99)
[2016-03-26 14:45] LABS: ALANINE AMINOTRANSFERASE 38 IU/L (21-72); ALKALINE PHOSPHATASE 99 IU/L (38-126); ANION GAP 9 mEq/L (8-16); ASPARTATE AMINOTRANSFERASE 36 IU/L (17-59); BILIRUBIN,TOTAL 0.4 mg/dL (0.1-1.4); CALCIUM 8.2 mg/dL (8.5-10.4); CARBON DIOXIDE 19 mEq/l (22-31); CHLORIDE 111 mEq/L (97-110); CREATININE 1.5 mg/dL (0.7-1.3); GLOMERULAR FILTRATION RATE 48; GLUCOSE 132 mg/dL (70-100); POTASSIUM 3.5 mEq/L (3.5-5.2); SODIUM 139 mEq/L (134-144); TOTAL PROTEIN 4.3 g/dL (6.3-8.2)
[2016-03-26 14:53] LABS: TROPONIN I < 0.012 ng/mL (0-0.034)
[2016-03-26 15:16] LABS: CK-MB INTERPRETATION NEGATIVE (NEGATIVE)
[2016-03-26 15:25] LABS: SCAN POSITIVE
[2016-03-26 15:32] LABS: LARGE PLATELETS PRESENT; PLATELET ESTIMATE ADEQUATE (ADEQ)
[2016-03-26 15:34] LABS: ECHINOCYTES 1+; ELLIPTOCYTES 1+
[2016-03-26] MEDS: fentaNYL/NACL 100 ML IV SCH (16:08)
[2016-03-26 16:33] LABS: MAGNESIUM 2.9 mg/dL (1.6-2.3); POTASSIUM 3.4 mEq/L (3.5-5.2)
--- NOTE | 2016-03-26 16:36 | HOSPPROG ---
Hospitalist Progress Note Assessment/Plan: * s/p Cardiac arrest - HACA protocol -breif PEA - suspect due to hypovolemia * Possible PNA -Cefepime * Diarrhea -check stool * Acute respiratory failure - vent * ARF - improved -watch creatinine s/p IV contrast * Melanoma - on chemo * Schizoaffective disorder -clozaril, invega * DM II -hold metformin Subjective: Some purposeful mvmt Objective: Vital Signs Temp Pulse Resp BP Pulse Ox 58 L 20 105/59 L 100 03/26/16 16:00 03/26/16 16:00 03/26/16 16:00 03/26/16 16:00 Laboratory Results 03/26/16 14:00 03/25/16 03/26/16 03/27/16 05:59 05:59 05:59 Output Total 485 Balance -485 PT 15.9 SEC (12.0-15.0) H 03/26/16 14:00 INR 1.27 (0.83-1.16) H 03/26/16 14:00 ECHO: normal Ef - Physical Exam Constitutional: no apparent distress, appears nourished, not in pain Cardiovascular: regular rate and rhythym, no murmur, rub, or gallop Respiratory: no respiratory distress, no rales or rhonchi, clear to auscultation Skin: no rashes or abrasions, no fluctuance, no induration Neurologic: No AAOx3 Psychiatric: encephalopathic, other (intubated/sedated), No agitated ICD10 Worksheet Patient Problems: Problems Problem Status Onset Cardiac arrest Acute Septic shock Acute Bacteremia Acute Hyponatremia Acute Schizophrenia Acute
[2016-03-26] MEDS ORDERED: POTASSIUM Cl (KCl) 10 MEQ/50 ML BAG IV ONE (16:52)
[2016-03-26] MEDS ORDERED: POTASSIUM Cl (KCl) 20 MEQ/50 ML BAG IV ONE (16:53)
[2016-03-26 18:35] LABS: BASE EXCESS -6.2 mEq/L (-2.5-2.5); BICARBONATE 19 mEq/L (22-26); MEASURED OXYGEN SATURATION 97 % (92-95); PCO2 34 mmHg (34-38); PO2 89 mmHg (65-75); TCO2 20 mEq/L (23-27)
[2016-03-26 18:40] LABS: O2 CONCENTRATIION 40 % (0-100); P/F RATIO 223 RATIO
[2016-03-26 20:42] LABS: BASE EXCESS -6.3 mEq/L (-2.5-2.5); BICARBONATE 18 mEq/L (22-26); IONIZED CALCIUM 1.25 MMOL/L (1.12-1.30); MEASURED OXYGEN SATURATION 98 % (92-95); PCO2 28 mmHg (34-38); PO2 103 mmHg (65-75); TCO2 19 mEq/L (23-27)
[2016-03-26 20:44] LABS: ASSIST CONTROL YES; END TIDAL CO2 27; O2 CONCENTRATIION 40 % (0-100); P/F RATIO 258 RATIO; TOTAL RATE 22
[2016-03-26 20:50] LABS: % IMMATURE GRANULYOCYTES 1.7 % (0.0-1.1); ADD DIFF? NO; ADD MORPH? NO; ADD SCAN? YES; FRAGMENT RBC FLAG 20 (0-99); HEMATOCRIT 38.4 % (40.0-51.0); HEMOGLOBIN 12.7 g/dL (13.7-17.5); LIPEMIA HEMOLYSIS FLAG 80 (0-99); MEAN CELL HEMOGLOBIN CONCENTR. 33.1 g/dL (32.4-36.7); MEAN CELL VOLUME 87.7 fL (81.5-99.8); PLATELET CLUMPS FLAG 10 (0-99); PLATELET COUNT 217 10^3/uL (150-400); RED BLOOD CELL COUNT 4.38 10^6/uL (4.40-6.38); RED CELL DISTRIBUTION WIDTH 14.1 % (11.5-15.2)
[2016-03-26 20:52] LABS: ATYPICAL LYMPHOCYTE FLAG 260 (0-99); LEFT SHIFT FLG 300 (0-99)
[2016-03-26 20:54] LABS: INR 1.39 (0.83-1.16)
[2016-03-26 20:55] LABS: APTT 29.3 SEC (23.0-38.0)
[2016-03-26] MEDS ORDERED: cloZAPine 100 MG TAB TUBE SCH (21:00)
[2016-03-26] MEDS ORDERED: PALIPERIDONE 9 MG TAB.ER PO SCH (21:00)
[2016-03-26] MEDS ORDERED: NON-FORMULARY NEW DRUG (Simvastatin [Zocor] 20 MG) PO SCH (21:00)
[2016-03-26] MEDS ORDERED: cloZAPine 100 MG TAB PO SCH (21:00)
[2016-03-26] MEDS ORDERED: SENNOSIDES/DOCUSATE SODIUM TAB PO SCH (21:00)
[2016-03-26] MEDS ORDERED: NON-FORMULARY NEW DRUG (Escitalopram Oxalate [Lexapro] 20 MG) PO SCH (21:00)
[2016-03-26] MEDS ORDERED: ATORVASTATIN CALCIUM 10 MG TAB TUBE SCH (21:00)
[2016-03-26 21:24] LABS: ALBUMIN 2.1 g/dL (3.5-5.0); ANION GAP 9 mEq/L (8-16); ASPARTATE AMINOTRANSFERASE 47 IU/L (17-59); BILIRUBIN,TOTAL 0.4 mg/dL (0.1-1.4); CALCIUM 8.1 mg/dL (8.5-10.4); CARBON DIOXIDE 20 mEq/l (22-31); CHLORIDE 105 mEq/L (97-110); CREATININE 1.1 mg/dL (0.7-1.3); GLOMERULAR FILTRATION RATE > 60; GLUCOSE 162 mg/dL (70-100); MAGNESIUM 2.8 mg/dL (1.6-2.3); POTASSIUM 3.9 mEq/L (3.5-5.2); SODIUM 134 mEq/L (134-144)
[2016-03-26 21:28] LABS: TROPONIN I < 0.012 ng/mL (0-0.034)
[2016-03-26 21:37] LABS: SCAN POSITIVE
[2016-03-26] MEDS: FAMOTIDINE 20 MG/NACL 50 ML IV SCH (21:41)
[2016-03-26] MEDS: CLOTRIMAZOLE 1% 15 GM CRTUBE TP SCH (21:42)
[2016-03-26 21:59] LABS: TOXIC GRANULATION PRESENT; TOXIC VACUOLIZATION PRESENT
[2016-03-26 22:00] LABS: PLATELET ESTIMATE ADEQUATE (ADEQ)
[2016-03-26 22:02] LABS: ECHINOCYTES 1+; POLYCHROMASIA 1+
[2016-03-26 22:40] LABS: CK-MB INTERPRETATION NEGATIVE (NEGATIVE)
[2016-03-27] MEDS: fentaNYL/NACL 100 ML IV SCH ×3 (00:33→21:10)
[2016-03-27 00:37] LABS: MAGNESIUM 2.7 mg/dL (1.6-2.3); POTASSIUM 3.5 mEq/L (3.5-5.2)
[2016-03-27] MEDS: NOREPINEPHRINE BITARTRATE 4 MG in D5W 500 ML IV PRN ×3 (00:47→21:10)
[2016-03-27 02:09] LABS: ASSIST CONTROL YES; BICARBONATE 19 mEq/L (22-26); IONIZED CALCIUM 1.22 MMOL/L (1.12-1.30); MEASURED OXYGEN SATURATION 98 % (92-95); PCO2 29 mmHg (34-38); PO2 103 mmHg (65-75); TCO2 20 mEq/L (23-27)
[2016-03-27 02:10] LABS: END TIDAL CO2 26; O2 CONCENTRATIION 90 % (0-100); P/F RATIO 114 RATIO; TOTAL RATE 22
[2016-03-27 02:18] LABS: ADD MORPH? NO; ADD SCAN? YES; FRAGMENT RBC FLAG 0 (0-99); HEMATOCRIT 37.7 % (40.0-51.0); HEMOGLOBIN 12.5 g/dL (13.7-17.5); INR 1.46 (0.83-1.16); LIPEMIA HEMOLYSIS FLAG 80 (0-99); MEAN CELL HEMOGLOBIN 29.2 pg (27.9-34.1); MEAN CELL HEMOGLOBIN CONCENTR. 33.2 g/dL (32.4-36.7); MEAN CELL VOLUME 88.1 fL (81.5-99.8); MEAN PLATELET VOLUME 8.9 fL (8.7-11.7); PLATELET CLUMPS FLAG 0 (0-99); PLATELET COUNT 178 10^3/uL (150-400); PROTIME(PATIENT) 17.7 SEC (12.0-15.0); RED BLOOD CELL COUNT 4.28 10^6/uL (4.40-6.38); RED CELL DISTRIBUTION WIDTH 14.2 % (11.5-15.2)
[2016-03-27 02:19] LABS: ALANINE AMINOTRANSFERASE 43 IU/L (21-72); ALBUMIN 2.1 g/dL (3.5-5.0); ALKALINE PHOSPHATASE 96 IU/L (38-126); ANION GAP 9 mEq/L (8-16); APTT 29.4 SEC (23.0-38.0); ASPARTATE AMINOTRANSFERASE 53 IU/L (17-59); ATYPICAL LYMPHOCYTE FLAG 230 (0-99); BILIRUBIN,TOTAL 0.4 mg/dL (0.1-1.4); CALCIUM 7.9 mg/dL (8.5-10.4); CARBON DIOXIDE 19 mEq/l (22-31); CHLORIDE 106 mEq/L (97-110); CREATININE 0.9 mg/dL (0.7-1.3); GLOMERULAR FILTRATION RATE > 60; GLUCOSE 178 mg/dL (70-100); LEFT SHIFT FLG 300 (0-99); POTASSIUM 3.2 mEq/L (3.5-5.2); SODIUM 134 mEq/L (134-144); TOTAL PROTEIN 4.5 g/dL (6.3-8.2)
[2016-03-27 02:31] LABS: TROPONIN I < 0.012 ng/mL (0-0.034)
[2016-03-27 02:37] LABS: SCAN POSITIVE
[2016-03-27 02:38] LABS: ADD DIFF? YES
[2016-03-27 02:44] LABS: CK-MB INTERPRETATION NEGATIVE (NEGATIVE)
[2016-03-27 02:45] LABS: PLATELET ESTIMATE ADEQUATE (ADEQ); TOXIC GRANULATION PRESENT; TOXIC VACUOLIZATION PRESENT
[2016-03-27 02:46] LABS: LARGE PLATELETS PRESENT
[2016-03-27] MEDS: SODIUM BICARBONATE 150 MEQ in D5W 1,000 ML IV SCH ×2 (03:12→21:12)
[2016-03-27] MEDS: POTASSIUM Cl (KCl) 50 ML IV SCH ×2 (04:26→05:27)
[2016-03-27 05:01] LABS: MAGNESIUM 2.6 mg/dL (1.6-2.3); POTASSIUM 3.2 mEq/L (3.5-5.2)
[2016-03-27 07:08] LABS: MAGNESIUM 2.4 mg/dL (1.6-2.3); POTASSIUM 4.5 mEq/L (3.5-5.2)
[2016-03-27 08:27] LABS: ASSIST CONTROL YES
[2016-03-27 08:28] LABS: BASE EXCESS -4.4 mEq/L (-2.5-2.5); BICARBONATE 20 mEq/L (22-26); END TIDAL CO2 32; IONIZED CALCIUM 1.23 MMOL/L (1.12-1.30); MEASURED OXYGEN SATURATION 98 % (92-95); O2 CONCENTRATIION 40 % (0-100); TCO2 21 mEq/L (23-27); TOTAL RATE 22
[2016-03-27 08:30] LABS: P/F RATIO 245 RATIO
[2016-03-27 08:32] LABS: PCO2 35 mmHg (34-38)
[2016-03-27 08:35] LABS: % IMMATURE GRANULYOCYTES 1.4 % (0.0-1.1); ABSOLUTE IMMATURE GRANULOCYTES 0.05 10^3/uL (0.00-0.10); ADD DIFF? NO; ADD MORPH? NO; ADD SCAN? YES; FRAGMENT RBC FLAG 0 (0-99); HEMATOCRIT 35.3 % (40.0-51.0); HEMOGLOBIN 11.6 g/dL (13.7-17.5); LIPEMIA HEMOLYSIS FLAG 80 (0-99); MEAN CELL HEMOGLOBIN 28.3 pg (27.9-34.1); MEAN CELL HEMOGLOBIN CONCENTR. 32.9 g/dL (32.4-36.7); MEAN CELL VOLUME 86.1 fL (81.5-99.8); MEAN PLATELET VOLUME 8.6 fL (8.7-11.7); PLATELET CLUMPS FLAG 0 (0-99); PLATELET COUNT 161 10^3/uL (150-400); RED CELL DISTRIBUTION WIDTH 14.1 % (11.5-15.2)
[2016-03-27 08:37] LABS: PO2 98 mmHg (65-75)
[2016-03-27 08:38] LABS: INR 1.48 (0.83-1.16); PROTIME(PATIENT) 17.9 SEC (12.0-15.0)
[2016-03-27 08:39] LABS: APTT 28.8 SEC (23.0-38.0)
--- NOTE | 2016-03-27 08:40 | PDINTPN ---
Dental Financial Coordinator Progress Note Assessment/Plan: Assessment/Plan: * S/P cardiac arrest * HACA per protocol * Resp failure-stable on mechanical ventilation * Schizoaffective DO * Pna-possible aspiration -cont cefepime -bronch today * Melanoma * Acute renal failure * Neuro-no purposeful movement * VTE proph * Stress ulcer proph 35 min of critical care time spent with patient Case discussed with RT and nursing Subjective: coma Objective: Vital Signs Temp Pulse Resp BP Pulse Ox 35.3 C L 76 22 H 126/66 H 100 03/27/16 08:00 03/27/16 08:00 03/27/16 08:00 03/27/16 08:00 03/27/16 08:00 03/26/16 03/27/16 03/28/16 05:59 05:59 05:59 Intake Total 6508 Output Total 1640 100 Balance 4868 -100 PT 17.7 SEC (12.0-15.0) H 03/27/16 01:55 INR 1.46 (0.83-1.16) H 03/27/16 01:55 03/27/16 08:10 Patient Temperature 35.3 DEGREES DEGREES pCO2 35 mmHg mmHg (34 - 38) pO2 98 mmHg H mmHg (65 - 75) Total CO2 21 mEq/L L mEq/L (23 - 27) ABG pH 7.37 (7.35 - 7.45) ABG PO2/FiO2 Ratio 245 RATIO RATIO ABG O2 Saturation 98 % H % (92 - 95) ABG Base Excess -4.4 mEq/L L mEq/L (-2.5 - 2.5) ABG Lactic Acid 2.9 mmol/L H mmol/L (0.5 - 1.6) O2 Concentration % 40 % % Respiration Rate 22 Set Respiration Rate 22 Assist Control YES Tidal Volume 600 End Tidal CO2 32 PEEP 5 CXR-reviewed by myself. ETT okay. No change - Time Spent With Patient Time Spent With Patient: 35 Physical Exam - Physical Exam General Appearance: No alert EENT: PERRL/EOMI, normal ENT inspection, ET tube Neck: non-tender, full range of motion Respiratory: crackles (bases), No respiratory distress, No wheezing Cardiac/Chest: normal peripheral pulses, regular rate, rhythm, systolic murmur Peripheral Pulses: 2+: carotid (R), carotid (L), femoral (R), femoral (L), dorsalis-pedis (R), dorsalis-pedis (L) Abdomen: normal bowel sounds, non-tender, soft, distended Male Genitalia: deferred Rectal: deferred Skin: normal color, warm/dry Neuro/Psych: other (coma), No alert ICD10 Worksheet Patient Problems: Problems Problem Status Onset Cardiac arrest Acute Septic shock Acute Bacteremia Acute Hyponatremia Acute Schizophrenia Acute
[2016-03-27 08:42] LABS: ATYPICAL LYMPHOCYTE FLAG 250 (0-99); LEFT SHIFT FLG 300 (0-99)
[2016-03-27 08:51] LABS: ANION GAP 9 mEq/L (8-16); ASPARTATE AMINOTRANSFERASE 47 IU/L (17-59); BILIRUBIN,TOTAL 0.2 mg/dL (0.1-1.4); CALCIUM 7.1 mg/dL (8.5-10.4); CARBON DIOXIDE 22 mEq/l (22-31); CHLORIDE 106 mEq/L (97-110); CREATININE 0.8 mg/dL (0.7-1.3); GLOMERULAR FILTRATION RATE > 60; GLUCOSE 133 mg/dL (70-100); MAGNESIUM 2.2 mg/dL (1.6-2.3); POTASSIUM 3.3 mEq/L (3.5-5.2); SODIUM 137 mEq/L (134-144)
[2016-03-27] MEDS ORDERED: PROTOCOL CALCIUM 1 DOSE IV PRN (08:56)
[2016-03-27] MEDS ORDERED: PROTOCOL K PHOSPHATE 1 DOSE IV PRN (08:56)
[2016-03-27] MEDS ORDERED: NON-FORMULARY NEW DRUG (Omeprazole [Prilosec 20 Mg] 20 MG) PO SCH (09:00)
[2016-03-27] MEDS ORDERED: LANSOPRAZOLE SUSP 30MG/10ML UDSYR (Adult) TUBE SCH (09:00)
[2016-03-27] MEDS ORDERED: RN MUST ADD CA+ & PHOS PROTOCOL TO WORKLIST AT 36 C MISC SCH (09:00)
[2016-03-27] MEDS ORDERED: cloZAPine 100 MG TAB TUBE SCH (09:00)
[2016-03-27] MEDS ORDERED: POLYETHYLENE GLYCOL 3350 17 GM PKT PO SCH (09:00)
[2016-03-27 09:02] LABS: TROPONIN I 0.013 ng/mL (0-0.034)
[2016-03-27 09:04] LABS: CK-MB INTERPRETATION NEGATIVE (NEGATIVE)
[2016-03-27] MEDS: CHLORHEXIDINE GLUCONATE 15 ML UDL PO SCH ×2 (09:13→21:10)
[2016-03-27] MEDS: CEFEPIME HCL 1 GM in D5W 50 ML IV SCH (09:13)
[2016-03-27] MEDS: CLOTRIMAZOLE 1% 15 GM CRTUBE TP SCH ×2 (09:19→21:09)
[2016-03-27 09:46] LABS: SCAN POSITIVE
[2016-03-27 09:52] LABS: ECHINOCYTES 1+; PLATELET ESTIMATE ADEQUATE (ADEQ); TOXIC GRANULATION PRESENT
[2016-03-27 09:55] LABS: TOXIC VACUOLIZATION PRESENT
[2016-03-27 13:01] LABS: MAGNESIUM 2.5 mg/dL (1.6-2.3); POTASSIUM 3.7 mEq/L (3.5-5.2)
[2016-03-27] MEDS: ERTAPENEM 1 GM in NS 100 ML IV SCH (13:41)
[2016-03-27] MEDS: RN MUST REMOVE K+ & MG+ PROTOCOL FROM WORKLIST AT 36 C MISC SCH (13:44)
[2016-03-27] MEDS: MAINTAIN PARALYTIC,ANALGESIA,SEDATION UNTIL TEMP IS 36C MISC SCH (13:44)
[2016-03-27 14:01] LABS: BASE EXCESS -3.9 mEq/L (-2.5-2.5); BICARBONATE 21 mEq/L (22-26); IONIZED CALCIUM 1.22 MMOL/L (1.12-1.30); MEASURED OXYGEN SATURATION 97 % (92-95); PCO2 37 mmHg (34-38); PO2 98 mmHg (65-75); TCO2 22 mEq/L (23-27)
[2016-03-27 14:02] LABS: ASSIST CONTROL YES; END TIDAL CO2 34
[2016-03-27 14:03] LABS: O2 CONCENTRATIION 40 % (0-100); P/F RATIO 245 RATIO; TOTAL RATE 22
[2016-03-27 14:08] LABS: % IMMATURE GRANULYOCYTES 1.7 % (0.0-1.1); ABSOLUTE IMMATURE GRANULOCYTES 0.09 10^3/uL (0.00-0.10); ADD DIFF? NO; ADD MORPH? NO; ADD SCAN? YES; FRAGMENT RBC FLAG 0 (0-99); HEMATOCRIT 40.2 % (40.0-51.0); HEMOGLOBIN 13.2 g/dL (13.7-17.5); LIPEMIA HEMOLYSIS FLAG 80 (0-99); MEAN CELL HEMOGLOBIN 28.6 pg (27.9-34.1); MEAN CELL HEMOGLOBIN CONCENTR. 32.8 g/dL (32.4-36.7); MEAN CELL VOLUME 87.2 fL (81.5-99.8); MEAN PLATELET VOLUME 8.8 fL (8.7-11.7); PLATELET CLUMPS FLAG 0 (0-99); PLATELET COUNT 150 10^3/uL (150-400); RED BLOOD CELL COUNT 4.61 10^6/uL (4.40-6.38); RED CELL DISTRIBUTION WIDTH 14.3 % (11.5-15.2)
[2016-03-27] MEDS ORDERED: IOPAMIDOL (ISOVUE-300) 100 ML BTL IV ONE (14:08)
[2016-03-27 14:10] LABS: ATYPICAL LYMPHOCYTE FLAG 270 (0-99); LEFT SHIFT FLG 300 (0-99)
[2016-03-27 14:20] LABS: ALANINE AMINOTRANSFERASE 45 IU/L (21-72); ALBUMIN 2.2 g/dL (3.5-5.0); ALKALINE PHOSPHATASE 101 IU/L (38-126); ANION GAP 11 mEq/L (8-16); ASPARTATE AMINOTRANSFERASE 49 IU/L (17-59); BILIRUBIN,TOTAL 0.4 mg/dL (0.1-1.4); CALCIUM 7.9 mg/dL (8.5-10.4); CARBON DIOXIDE 23 mEq/l (22-31); CHLORIDE 99 mEq/L (97-110); CREATININE 0.8 mg/dL (0.7-1.3); GLOMERULAR FILTRATION RATE > 60; GLUCOSE 140 mg/dL (70-100); POTASSIUM 3.6 mEq/L (3.5-5.2); SODIUM 133 mEq/L (134-144)
[2016-03-27 14:28] LABS: INR 1.45 (0.83-1.16); PROTIME(PATIENT) 17.6 SEC (12.0-15.0)
[2016-03-27 14:29] LABS: APTT 29.2 SEC (23.0-38.0)
[2016-03-27 14:41] LABS: SCAN POSITIVE
[2016-03-27 14:46] LABS: CK-MB INTERPRETATION NEGATIVE (NEGATIVE)
[2016-03-27 14:59] LABS: ECHINOCYTES 1+; PLATELET ESTIMATE ADEQUATE (ADEQ); TOXIC GRANULATION PRESENT; TOXIC VACUOLIZATION PRESENT
--- NOTE | 2016-03-27 15:04 | GCON ---
[f rep st] CONSULTATION ONCOLOGY CONSULTATION. The patient is a 55-year-old. He has a history of schizoaffective disorder. He was diagnosed with a stage IIB melanoma of his right upper extremity in July of 2014. He recurred in October 2015 wi th an axillary mami resection. He has received 2 cycles of adjuvant ipilimumab. My understanding is he has been having some issues with increasing diarrhea, and then collapsed and saw the nurse's s tation at [place]. There initially apparently was no pulse, but after CPR was initiated a pulse was detected. A bedside echo showed a hypokinetic RV. He was intubated in the emergency room and t ransferred to the ICU. He is currently intubated on pressors. PAST MEDICAL HISTORY: Significant for diabetes, gastroesophageal reflux disease, schizoaffective di sorder, hyponatremia, malignant melanoma, DVT, and osteoarthritis. Nurse currently notes a distended abdomen. A chest CT scan showed a possible patchy infiltrate. Th ere is also some nodularity noted in his right chest wall with a mildly prominent lymph node in the right axilla. Currently he is intubated, blood pressure 121/62, on pressors. PHYSICAL EXAMINATION: VITAL SIGNS: He is afebrile. HEENT: He is nonicteric. NECK: I detect no cervical adenopathy. LUNGS: Somewhat clear with occasional rhonchi. CARDIAC: Exam is unremarkabl e. ABDOMEN: Quiet, and quite distended. EXTREMITIES: Show no edema. LABORATORIES: White count is 5000, hemoglobin 13.2, hematocrit 40.2, platelets 150,000. Sodium 133 , creatinine is 0.8, glucose 140, CPK of 765. IMPRESSION: Patient with melanoma, on adjuvant ipilimumab. He has been having some diarrhea, which is a complication. It is possible that some of his arrest may be related to a hypovolemia issue. He is not currently having diarrhea but his abdomen is distended. He is going to obtain a CT of the abdomen. If his diarrhea resumes he probably needs to be put on steroids and antidiarrheal agents. I would check a stool for clostridium difficile if, again, his diarrhea resumes. I note that a ve ry recent TSH and a.m. cortisol were normal. Endocrinopathies can be an issue with drugs like ipili mumab, but that does not seem to be an issue at this time. Our service will follow with you. /[id number]/MODL
--- NOTE | 2016-03-27 16:08 | SOAPPROG ---
SOAP Progress Note Assessment/Plan: Assessment: CT scan shows pancolitis, probably related to ipilumab, will start solumedrol 50mg every 8 hours Plan: 03/27/16 16:07 Objective: Vital Signs Temp Pulse Resp BP Pulse Ox 97.9 F 80 22 H 117/65 97 03/27/16 15:00 03/27/16 15:00 03/27/16 15:00 03/27/16 15:00 03/27/16 15:00 Laboratory Results 03/27/16 13:51 03/27/16 13:51 03/26/16 03/27/16 03/28/16 05:59 05:59 05:59 Intake Total 6508 Output Total 1640 475 Balance 4868 -475 PT 17.6 SEC (12.0-15.0) H 03/27/16 13:51 INR 1.45 (0.83-1.16) H 03/27/16 13:51 ICD10 Worksheet Patient Problems: Problems Problem Status Onset Cardiac arrest Acute Septic shock Acute Bacteremia Acute Hyponatremia Acute Schizophrenia Acute
[2016-03-27] MEDS: ENOXAPARIN 40 MG/0.4 ML SYR SC SCH (16:24)
[2016-03-27] MEDS ORDERED: NS 1,000 ML IV SCH (16:45)
[2016-03-27] MEDS ORDERED: D50W 25 GM/50 ML SYR IVP PRN (16:47)
--- NOTE | 2016-03-27 16:51 | PDCONSULT ---
Internet Retailer Note: Surgical Consult Dictated #[id number] S MD Leticia, FACS
--- NOTE | 2016-03-27 16:58 | HOSPPROG ---
Hospitalist Progress Note Assessment/Plan: * s/p Cardiac arrest - HACA protocol -breif PEA - suspect due to hypovolemia/sepsis * Pancolitis - Cdiff vs. chemo rx vs. ischemia post cardiac arrest -PO Vanco + IV Flagyl -hold steroids given Cdiff -surgery consulted r/o gut - d/w Dr. Kelly -follow lactate, bicarb gtt * Septic shock -empiric invanz -pressors * Acute respiratory failure - vent * ARF - improved -watch creatinine s/p IV contrast * Melanoma - on chemo * Schizoaffective disorder -clozaril, invega - hold while NPO * DM II -hold metformin CC time: 45 minutes Subjective: Abdomen clearly more distended today. HACA protocol completed this afternoon. Presser needs and lactate going up. Objective: Vital Signs Temp Pulse Resp BP Pulse Ox 36.8 C 77 22 H 130/72 H 99 03/27/16 16:00 03/27/16 16:12 03/27/16 16:12 03/27/16 16:00 03/27/16 16:12 Laboratory Results 03/27/16 13:51 03/27/16 13:51 03/26/16 03/27/16 03/28/16 05:59 05:59 05:59 Intake Total 6508 Output Total 1640 600 Balance 4868 -600 PT 17.6 SEC (12.0-15.0) H 03/27/16 13:51 INR 1.45 (0.83-1.16) H 03/27/16 13:51 CT abd: pancolitis - Physical Exam Constitutional: no apparent distress, appears nourished, not in pain Cardiovascular: regular rate and rhythym, no murmur, rub, or gallop Respiratory: no respiratory distress, no rales or rhonchi, clear to auscultation Gastrointestinal: distension, other (extreme distention compared to yesterday, but soft), No normoactive bowel sounds, No tenderness Skin: no rashes or abrasions, no fluctuance, no induration Neurologic: No AAOx3 Psychiatric: other (intubated, sedated) ICD10 Worksheet Patient Problems: Problems Problem Status Onset Cardiac arrest Acute Septic shock Acute Bacteremia Acute Hyponatremia Acute Schizophrenia Acute
--- NOTE | 2016-03-27 17:18 | GCON ---
[f rep st] CONSULTATION SURGICAL CONSULTATION. DATE OF CONSULTATION: 03/27/2016 REFERRING PHYSICIAN: Sonal Lunsford MD CHIEF COMPLAINT: Abdominal distention. HISTORY OF PRESENT ILLNESS: The patient is a 55-year-old male with a history of schizoaffective disorder, malignant melanoma, metastatic, on chemotherapy who required CPR yesterday for a witnessed arrest. He is a resident at [place] [facility] where he has lived since 2013. He was intubated in the emergency department and was unresponsive despite no sedation. The patient was admitted and placed on the HACA protocol and cooling was instituted. Today, after rewarming, the patient was noted to have increasing abdominal distention, and a CT scan was performed, which showed diffuse thickening of the colon. His nurse reports that he had a large liquid stool within the past hour. C difficile PCR was positive. ALLERGIES: He is allergic to Ativan. CHRONIC MEDICATIONS: Include Clozaril, desmopressin, escitalopram, omeprazole, probiotic, simvastatin, metformin, Invega, betamethasone, and ibuprofen. He is receiving chemotherapy under the care of Dr. Nick Sanchez ( SOCIAL HISTORY: The patient has a history of tobacco use. He is a nondrinker by history. The patient's father is his [id number] and lives here in [place]. He is listed as a full code. Patient in is a resident at [facility]. FAMILY HISTORY: Nonobtainable. REVIEW OF SYSTEMS: Unobtainable. PHYSICAL EXAMINATION: VITAL SIGNS: Blood pressure 130/72, heart rate 77, respiratory rate 22, O2 sat is 99% on 40% FiO2, temperature is 36.8. End-tidal CO2 is 33. GENERAL: The patient is intubated and unresponsive to verbal or physical stimuli. HEENT: Pupils are 2 mm, nonreactive. He has some left lateral upward gaze deviation/dysconjugate gaze. Trachea is midline. Patient has an endotracheal tube in place. CHEST: Clear to auscultation with scattered fine rales. ABDOMEN: Distended but soft with hypoactive bowel sounds. The patient has bilateral femoral catheters in place. EXTREMITIES: Pedal pulses are +1 and symmetrical. LABORATORY DATA AND X-RAY: The patient's CT scan was reviewed and demonstrates diffuse mild thickening of the colon with moderate amount of fluid. There is some thickening of the terminal ileum as well as fluid in the small bowel. There is no free fluid, free air in the abdominal cavity. The patient does not appear to have a hepatic metastases. The vena cava is not particularly distended on this image suggesting the possibility of hypovolemia. C difficile PCR is positive. IMPRESSION: Pancolitis likely secondary to Clostridium difficile enterocolitis. RECOMMENDATIONS: I do not recommend surgical intervention at this time. Patient has a poor prognosis neurologically from what I can tell, and I would recommend supportive medical care and consider Neurology consultation. /[id number]/MODL MTDD
[2016-03-27] MEDS ORDERED: INSULIN REGULAR HUMAN 100 UNIT/ML SC SCH (17:30)
[2016-03-27] MEDS: INSULIN REGULAR HUMAN 100 UNIT/ML SC SCH (18:13)
[2016-03-27 18:49] LABS: POTASSIUM 3.6 mEq/L (3.5-5.2)
[2016-03-27 20:25] LABS: ABSOLUTE IMMATURE GRANULOCYTES 0.23 10^3/uL (0.00-0.10); ADD DIFF? NO; ADD MORPH? NO; ADD SCAN? YES; BASE EXCESS -3.6 mEq/L (-2.5-2.5); BICARBONATE 20 mEq/L (22-26); FRAGMENT RBC FLAG 0 (0-99); HEMATOCRIT 40.6 % (40.0-51.0); HEMOGLOBIN 13.4 g/dL (13.7-17.5); IONIZED CALCIUM 1.22 MMOL/L (1.12-1.30); LIPEMIA HEMOLYSIS FLAG 80 (0-99); MEAN CELL HEMOGLOBIN 28.2 pg (27.9-34.1); MEAN CELL VOLUME 85.5 fL (81.5-99.8); MEAN PLATELET VOLUME 8.8 fL (8.7-11.7); MEASURED OXYGEN SATURATION 98 % (92-95); PCO2 36 mmHg (34-38); PLATELET CLUMPS FLAG 0 (0-99); PLATELET COUNT 161 10^3/uL (150-400); PO2 130 mmHg (65-75); RED BLOOD CELL COUNT 4.75 10^6/uL (4.40-6.38); RED CELL DISTRIBUTION WIDTH 14.3 % (11.5-15.2); TCO2 22 mEq/L (23-27)
[2016-03-27 20:26] LABS: ATYPICAL LYMPHOCYTE FLAG 160 (0-99); LEFT SHIFT FLG 300 (0-99)
[2016-03-27 20:34] LABS: ASSIST CONTROL YES; P/F RATIO 325 RATIO; TOTAL RATE 20
[2016-03-27 20:36] LABS: O2 CONCENTRATIION 40 % (0-100)
[2016-03-27 20:49] LABS: APTT 30.9 SEC (23.0-38.0); INR 1.53 (0.83-1.16); PROTIME(PATIENT) 18.4 SEC (12.0-15.0)
[2016-03-27 20:57] LABS: ANION GAP 11 mEq/L (8-16); ASPARTATE AMINOTRANSFERASE 44 IU/L (17-59); BILIRUBIN,TOTAL 0.5 mg/dL (0.1-1.4); CALCIUM 7.9 mg/dL (8.5-10.4); CARBON DIOXIDE 21 mEq/l (22-31); CHLORIDE 99 mEq/L (97-110); CREATININE 0.8 mg/dL (0.7-1.3); GLOMERULAR FILTRATION RATE > 60; GLUCOSE 130 mg/dL (70-100); MAGNESIUM 2.2 mg/dL (1.6-2.3); POTASSIUM 3.9 mEq/L (3.5-5.2); SODIUM 131 mEq/L (134-144)
[2016-03-27] MEDS: VANCOMYCIN 125 MG/2.5 ML UDL PO SCH (21:10)
[2016-03-27] MEDS: FAMOTIDINE 20 MG/NACL 50 ML IV SCH (21:10)
[2016-03-27 21:25] LABS: SCAN POSITIVE
[2016-03-27 21:32] LABS: PLATELET ESTIMATE ADEQUATE (ADEQ)
[2016-03-27 21:35] LABS: ACANTHOCYTES 1+
[2016-03-27] MEDS ORDERED: methylPREDNISolone SOD SUCC 40 MG/ML VIAL IVP SCH (22:00)
[2016-03-28] MEDS: INSULIN REGULAR HUMAN 100 UNIT/ML SC SCH ×4 (00:41→17:56)
[2016-03-28 00:53] LABS: MAGNESIUM 2.3 mg/dL (1.6-2.3); POTASSIUM 4.1 mEq/L (3.5-5.2)
[2016-03-28 01:55] LABS: IONIZED CALCIUM 1.23 MMOL/L (1.12-1.30)
[2016-03-28 05:38] LABS: ADD MORPH? NO; ADD SCAN? YES; FRAGMENT RBC FLAG 0 (0-99); HEMATOCRIT 37.9 % (40.0-51.0); HEMOGLOBIN 12.8 g/dL (13.7-17.5); LIPEMIA HEMOLYSIS FLAG 90 (0-99); MEAN CELL HEMOGLOBIN 28.8 pg (27.9-34.1); MEAN CELL HEMOGLOBIN CONCENTR. 33.8 g/dL (32.4-36.7); MEAN CELL VOLUME 85.2 fL (81.5-99.8); PLATELET CLUMPS FLAG 10 (0-99); PLATELET COUNT 148 10^3/uL (150-400); RED BLOOD CELL COUNT 4.45 10^6/uL (4.40-6.38); RED CELL DISTRIBUTION WIDTH 14.4 % (11.5-15.2)
[2016-03-28 05:42] LABS: ATYPICAL LYMPHOCYTE FLAG 200 (0-99); LEFT SHIFT FLG 300 (0-99)
[2016-03-28 05:59] LABS: ANION GAP 9 mEq/L (8-16); CALCIUM 8.3 mg/dL (8.5-10.4); CARBON DIOXIDE 23 mEq/l (22-31); CHLORIDE 98 mEq/L (97-110); CREATININE 0.8 mg/dL (0.7-1.3); GLOMERULAR FILTRATION RATE > 60; GLUCOSE 134 mg/dL (70-100); MAGNESIUM 2.5 mg/dL (1.6-2.3); SODIUM 130 mEq/L (134-144)
[2016-03-28] MEDS: PETROLAT,WHT/MIN OIL/SOD CHL 3.5 GM OPHT.OINT EACHEYE PRN ×2 (06:00→21:38)
[2016-03-28] MEDS: VANCOMYCIN 125 MG/2.5 ML UDL PO SCH ×4 (06:01→21:39)
[2016-03-28 06:26] LABS: ADD DIFF? YES; SCAN POSITIVE
[2016-03-28 06:33] LABS: PLATELET ESTIMATE DECREASED (ADEQ); TOXIC VACUOLIZATION PRESENT
[2016-03-28] MEDS: ENOXAPARIN 40 MG/0.4 ML SYR SC SCH (08:27)
[2016-03-28] MEDS: CHLORHEXIDINE GLUCONATE 15 ML UDL PO SCH ×2 (08:27→21:38)
[2016-03-28] MEDS: CLOTRIMAZOLE 1% 15 GM CRTUBE TP SCH ×2 (08:27→21:38)
[2016-03-28] MEDS: ERTAPENEM 1 GM in NS 100 ML IV SCH (08:28)
[2016-03-28] MEDS ORDERED: buPROPion XL 150 MG TAB PO SCH (09:00)
[2016-03-28] MEDS ORDERED: cloZAPine 100 MG TAB PO SCH (09:00)
[2016-03-28] MEDS: MAINTAIN PARALYTIC,ANALGESIA,SEDATION UNTIL TEMP IS 36C MISC SCH (09:01)
[2016-03-28] MEDS: RN MUST REMOVE K+ & MG+ PROTOCOL FROM WORKLIST AT 36 C MISC SCH (09:03)
--- NOTE | 2016-03-28 09:25 | PDINTPN ---
Infrastructure Manager Progress Note Assessment/Plan: Assessment/Plan: * S/P cardiac arrest * HACA-pt now warm * Resp failure-stable on mechanical ventilation * Schizoaffective DO * Pna-possible aspiration -cont cefepime * Melanoma * Acute renal failure * Neuro-minimal improvement -neuro to see * VTE proph * Stress ulcer proph 40 min of critical care time spent with patient Case discussed with RT and nursing Subjective: Eyes open. unresponsive Objective: Vital Signs Temp Pulse Resp BP Pulse Ox 37.5 C 78 22 H 96/52 L 97 03/28/16 09:00 03/28/16 09:00 03/28/16 09:00 03/28/16 09:00 03/28/16 09:00 Laboratory Results 03/28/16 05:25 03/28/16 05:25 03/27/16 03/28/16 03/29/16 05:59 05:59 05:59 Intake Total 6508 6433 Output Total 1640 2300 Balance 4868 4133 PT 18.4 SEC (12.0-15.0) H 03/27/16 20:05 INR 1.53 (0.83-1.16) H 03/27/16 20:05 - Time Spent With Patient Time Spent With Patient: 40 Physical Exam - Physical Exam General Appearance: other (eyes open), No alert EENT: PERRL/EOMI, normal ENT inspection, ET tube Neck: non-tender, full range of motion, supple, normal inspection Respiratory: decreased breath sounds, crackles (few), No wheezing Cardiac/Chest: normal peripheral pulses, regular rate, rhythm, systolic murmur Peripheral Pulses: 2+: carotid (R), carotid (L), femoral (R), femoral (L), dorsalis-pedis (R), dorsalis-pedis (L) Abdomen: normal bowel sounds, non-tender, soft Male Genitalia: deferred Rectal: deferred Skin: normal color, warm/dry ICD10 Worksheet Patient Problems: Problems Problem Status Onset C. difficile diarrhea Acute Cardiac arrest Acute Septic shock Acute Bacteremia Acute Hyponatremia Acute Schizophrenia Acute
[2016-03-28] MEDS: SODIUM BICARBONATE 150 MEQ in D5W 1,000 ML IV SCH (09:44)
[2016-03-28] MEDS: NOREPINEPHRINE BITARTRATE 4 MG in D5W 500 ML IV PRN (13:20)
--- NOTE | 2016-03-28 14:51 | HOSPPROG ---
Hospitalist Progress Note Assessment/Plan: * s/p Cardiac arrest - HACA protocol -breif PEA - suspect due to hypovolemia/sepsis * Pancolitis with studies consistent with Cdiff -PO Vanco + IV Flagyl -hold steroids given Cdiff -surgery consulted r/o gut - d/w Dr. Kelly -follow lactate, bicarb gtt * Septic shock -empiric invanz -pressors * Acute respiratory failure - vent * ARF - improved -watch creatinine s/p IV contrast * Melanoma - on chemo * Schizoaffective disorder -clozaril, invega - hold while NPO * DM II -hold metformin * Acute metabolic encephalopathy Subjective: pt is unresponsive Objective: Vital Signs Temp Pulse Resp BP Pulse Ox 37.7 C 78 22 H 102/52 L 96 03/28/16 10:00 03/28/16 13:00 03/28/16 13:00 03/28/16 13:00 03/28/16 13:00 Microbiology 03/26/16 03:00 Urine Culture - Final Urine,Catheterized Laboratory Results 03/28/16 05:25 03/28/16 05:25 03/27/16 03/28/16 03/29/16 05:59 05:59 05:59 Intake Total 6508 6433 Output Total 1640 2300 Balance 4868 4133 PT 18.4 SEC (12.0-15.0) H 03/27/16 20:05 INR 1.53 (0.83-1.16) H 03/27/16 20:05 - Physical Exam Cardiovascular: regular rate and rhythym, no murmur, rub, or gallop Respiratory: no respiratory distress, no rales or rhonchi, clear to auscultation Gastrointestinal: normoactive bowel sounds, soft, non-tender abdomen, no palpable masses, distension Genitourinary: no bladder fullness, no bladder tenderness, no renal bruits Neurologic: No AAOx3 ICD10 Worksheet Patient Problems: Problems Problem Status Onset C. difficile diarrhea Acute Hyponatremia Acute Bacteremia Acute Schizophrenia Acute Cardiac arrest Acute Septic shock Acute
[2016-03-28] MEDS: NS 1,000 ML IV SCH (15:07)
[2016-03-28 15:49] LABS: BASE EXCESS 2.9 mEq/L (-2.5-2.5); BICARBONATE 26 mEq/L (22-26); MEASURED OXYGEN SATURATION 96 % (92-95); PCO2 39 mmHg (34-38); PO2 85 mmHg (65-75); TCO2 27 mEq/L (23-27)
[2016-03-28 15:50] LABS: ASSIST CONTROL YES
[2016-03-28 15:52] LABS: END TIDAL CO2 42; O2 CONCENTRATIION 40 % (0-100); P/F RATIO 213 RATIO; TOTAL RATE 23
--- NOTE | 2016-03-28 16:13 | SOAPPROG ---
SOAP Progress Note Assessment/Plan: Assessment: 1. melanoma, on adjuvant ipilumumab 2.cardio resp arrest 3.diarrhea, c dif pos, pancolitis on ct scan 4. schizo affective disorder Plan:Continue supportive care, po vanc and iv flagyl.Colitis is a potential complication of Ipi, if persistent despite adequate rx of cdif may need steroids. 03/27/16 16:07 03/28/16 16:10 Subjective: Intubated but clearly waking up Objective: Vital Signs Temp Pulse Resp BP Pulse Ox 99.9 F 79 22 H 104/53 L 96 03/28/16 10:00 03/28/16 15:00 03/28/16 15:00 03/28/16 15:00 03/28/16 15:00 Microbiology 03/26/16 03:00 Urine Culture - Final Urine,Catheterized Laboratory Results 03/28/16 05:25 03/28/16 05:25 03/27/16 03/28/16 03/29/16 05:59 05:59 05:59 Intake Total 6508 6433 Output Total 1640 2300 Balance 4868 4133 PT 18.4 SEC (12.0-15.0) H 03/27/16 20:05 INR 1.53 (0.83-1.16) H 03/27/16 20:05 Physical Exam - Physical Exam Abdomen: other (less distended, quiet) ICD10 Worksheet Patient Problems: Problems Problem Status Onset C. difficile diarrhea Acute Cardiac arrest Acute Septic shock Acute Bacteremia Acute Hyponatremia Acute Schizophrenia Acute
[2016-03-28] MEDS ORDERED: PROPOFOL/EMULSION 1,000 MG/100 ML BOTTLE IV ONE (16:20)
[2016-03-28] MEDS ORDERED: PROPOFOL/EMULSION 100 ML IV SCH (16:30)
[2016-03-28 19:15] LABS: POTASSIUM 3.7 mEq/L (3.5-5.2)
[2016-03-28] MEDS: FAMOTIDINE 20 MG/NACL 50 ML IV SCH (21:38)
[2016-03-28] MEDS ORDERED: POTASSIUM Cl (KCl) 50 ML IV ONE (21:40)
[2016-03-28] MEDS ORDERED: ALBUTEROL 3 ML DEYVIAL IH PRN (23:48)
[2016-03-29 00:18] LABS: BASE EXCESS 2.1 mEq/L (-2.5-2.5); BICARBONATE 28 mEq/L (22-26); MEASURED OXYGEN SATURATION 91 % (92-95); PCO2 53 mmHg (34-38); PO2 67 mmHg (65-75); TCO2 30 mEq/L (23-27)
[2016-03-29] MEDS: INSULIN REGULAR HUMAN 100 UNIT/ML SC SCH ×4 (01:47→17:31)
[2016-03-29 01:56] LABS: POTASSIUM 4.6 mEq/L (3.5-5.2)
[2016-03-29 04:52] LABS: BICARBONATE 27 mEq/L (22-26); MEASURED OXYGEN SATURATION 98 % (92-95); PCO2 43 mmHg (34-38); PO2 107 mmHg (65-75); TCO2 29 mEq/L (23-27)
[2016-03-29 04:53] LABS: BIPAP YES; EXP PRESSURE 5; INSP PRESSURE 12; O2 CONCENTRATIION 50 % (0-100); P/F RATIO 214 RATIO
[2016-03-29 05:26] LABS: MAGNESIUM 2.5 mg/dL (1.6-2.3); POTASSIUM 4.3 mEq/L (3.5-5.2)
[2016-03-29] MEDS: VANCOMYCIN 125 MG/2.5 ML UDL PO SCH ×4 (05:33→20:09)
[2016-03-29] MEDS: CLOTRIMAZOLE 1% 15 GM CRTUBE TP SCH ×2 (08:39→20:06)
[2016-03-29] MEDS: ENOXAPARIN 40 MG/0.4 ML SYR SC SCH (08:40)
[2016-03-29] MEDS: ERTAPENEM 1 GM in NS 100 ML IV SCH (08:40)
[2016-03-29] MEDS: CHLORHEXIDINE GLUCONATE 15 ML UDL PO SCH (08:40)
[2016-03-29] MEDS: PETROLAT,WHT/MIN OIL/SOD CHL 3.5 GM OPHT.OINT EACHEYE PRN ×2 (08:40→17:31)
--- NOTE | 2016-03-29 09:04 | PDINTPN ---
Middleware Administrator Progress Note Assessment/Plan: Assessment/Plan: * S/P cardiac arrest * HACA-pt now warm * Resp failure-extubated yesterday -wean off BIPAP * Schizoaffective DO * Pna-possible aspiration -cont cefepime * Melanoma * Acute renal failure * Neuro-awake and alert. * VTE proph * Stress ulcer proph Overall, markedly better. Case discussed with RT and nursing Subjective: Awake and alert Objective: Vital Signs Temp Pulse Resp BP Pulse Ox 36.9 C 78 18 106/57 L 98 03/29/16 08:00 03/29/16 08:00 03/29/16 08:00 03/29/16 08:00 03/29/16 08:00 Microbiology 03/26/16 03:00 Urine Culture - Final Urine,Catheterized Laboratory Results 03/28/16 05:25 03/29/16 04:40 03/28/16 03/29/16 03/30/16 05:59 05:59 05:59 Intake Total 6433 2970 Output Total 2300 4650 Balance 4133 -1680 PT 18.4 SEC (12.0-15.0) H 03/27/16 20:05 INR 1.53 (0.83-1.16) H 03/27/16 20:05 Laboratory Results 03/28/16 05:25 03/29/16 04:40 03/29/16 04:40 Patient Temperature 37.4 DEGREES DEGREES pCO2 43 mmHg H mmHg (34 - 38) pO2 107 mmHg H mmHg (65 - 75) Total CO2 29 mEq/L H mEq/L (23 - 27) ABG pH 7.42 (7.35 - 7.45) ABG PO2/FiO2 Ratio 214 RATIO RATIO ABG O2 Saturation 98 % H % (92 - 95) ABG Base Excess 3.0 mEq/L H mEq/L (-2.5 - 2.5) O2 Concentration % 50 % % Expiratory Pressure 5 Inspiratory Pressure 12 Mode BiPAP YES Physical Exam - Physical Exam General Appearance: alert EENT: PERRL/EOMI, normal ENT inspection Neck: non-tender, full range of motion, supple, normal inspection Respiratory: decreased breath sounds, prolonged expiration, No wheezing Cardiac/Chest: normal peripheral pulses, regular rate, rhythm, systolic murmur Peripheral Pulses: 2+: carotid (R), carotid (L), femoral (R), femoral (L), dorsalis-pedis (R), dorsalis-pedis (L) Abdomen: normal bowel sounds, non-tender, soft Male Genitalia: deferred Rectal: deferred Skin: normal color, warm/dry Lymphatic: no adenopathy Neuro/Psych: no motor/sensory deficits, alert, normal mood/affect, oriented x 3 ICD10 Worksheet Patient Problems: Problems Problem Status Onset C. difficile diarrhea Acute Cardiac arrest Acute Septic shock Acute Bacteremia Acute Hyponatremia Acute Schizophrenia Acute
[2016-03-29] MEDS: RN MUST REMOVE K+ & MG+ PROTOCOL FROM WORKLIST AT 36 C MISC SCH (11:21)
[2016-03-29 12:23] LABS: POTASSIUM 3.9 mEq/L (3.5-5.2)
[2016-03-29] MEDS: fentaNYL 100 MCG/2 ML INJ IV PRN ×3 (12:30→17:15)
[2016-03-29] MEDS ORDERED: MIDAZOLAM 2 MG/2 ML VIAL ONE ×2 (12:52→13:25)
--- NOTE | 2016-03-29 13:21 | HOSPPROG ---
Hospitalist Progress Note Assessment/Plan: * s/p Cardiac arrest - [facility] protocol -breif PEA - suspect due to hypovolemia/sepsis * Pancolitis with studies consistent with Cdiff -PO Vanco + IV Flagyl -hold steroids given Cdiff * Septic shock (resolved) -will dc erta no evidence of asp pna on cxr -pressors off * Acute respiratory failure s/p extubation * ARF - improved -watch creatinine s/p IV contrast * Melanoma - on chemo * Schizoaffective disorder -clozaril, invega - hold while NPO * DM II -hold metformin * Acute metabolic encephalopathy -neuro consult pending check daily labs place NGT and start feedings pt continues to be critically ill and not really waking up case discussed with Dr. Jama and the ICU team Subjective: unresponsive. not following commands Objective: Vital Signs Temp Pulse Resp BP Pulse Ox 36.6 C 81 12 101/51 L 95 03/29/16 11:58 03/29/16 11:58 03/29/16 11:58 03/29/16 11:58 03/29/16 11:58 Microbiology 03/26/16 03:00 Urine Culture - Final Urine,Catheterized Laboratory Results 03/28/16 05:25 03/29/16 12:00 03/28/16 03/29/16 03/30/16 05:59 05:59 05:59 Intake Total 6433 2970 Output Total 2300 4650 Balance 4133 -1680 PT 18.4 SEC (12.0-15.0) H 03/27/16 20:05 INR 1.53 (0.83-1.16) H 03/27/16 20:05 - Physical Exam Constitutional: chronically ill appearing Cardiovascular: regular rate and rhythym, No JVD, No bradycardia, No edema Respiratory: no respiratory distress, no rales or rhonchi, clear to auscultation Gastrointestinal: normoactive bowel sounds, distension, No tenderness, No guarding, No rebound Skin: no rashes or abrasions, no fluctuance, no induration Neurologic: other (aaox0) Psychiatric: encephalopathic ICD10 Worksheet Patient Problems: Problems Problem Status Onset C. difficile diarrhea Acute Hyponatremia Acute Bacteremia Acute Schizophrenia Acute Cardiac arrest Acute Septic shock Acute
--- NOTE | 2016-03-29 14:57 | SOAPPROG ---
SOAP Progress Note Assessment/Plan: Assessment: 1. melanoma, on adjuvant ipilumumab 2.cardio resp arrest 3.diarrhea, c dif pos, pancolitis on ct scan 4. schizo affective disorder Plan:Continue supportive care, po vanc and iv flagyl. Colitis is a potential complication of Ipi, given the persistent diarrhea i think we should start steroids, discussed with Dr Jama. 2600 ml diarrhea out over last 24 hours 03/27/16 16:07 03/28/16 16:10 03/29/16 14:54 03/29/16 14:57 Subjective: Not very responsive, Objective: Vital Signs Temp Pulse Resp BP Pulse Ox 97.9 F 81 12 101/51 L 95 03/29/16 11:58 03/29/16 11:58 03/29/16 11:58 03/29/16 11:58 03/29/16 11:58 Microbiology 03/26/16 03:00 Urine Culture - Final Urine,Catheterized Laboratory Results 03/28/16 05:25 03/29/16 12:00 03/28/16 03/29/16 03/30/16 05:59 05:59 05:59 Intake Total 6433 2970 Output Total 2300 4650 Balance 4133 -1680 PT 18.4 SEC (12.0-15.0) H 03/27/16 20:05 INR 1.53 (0.83-1.16) H 03/27/16 20:05 @ Physical Exam - Physical Exam General Appearance: unresponsive Respiratory: normal breath sounds Cardiac/Chest: regular rate, rhythm Abdomen: normal bowel sounds, distended, other (non tender) ICD10 Worksheet Patient Problems: Problems Problem Status Onset C. difficile diarrhea Acute Cardiac arrest Acute Septic shock Acute Bacteremia Acute Hyponatremia Acute Schizophrenia Acute
[2016-03-29 16:41] LABS: % IMMATURE GRANULYOCYTES 1.9 % (0.0-1.1); ABSOLUTE IMMATURE GRANULOCYTES 0.09 10^3/uL (0.00-0.10); ADD DIFF? NO; ADD MORPH? NO; ADD SCAN? YES; FRAGMENT RBC FLAG 0 (0-99); HEMATOCRIT 36.2 % (40.0-51.0); HEMOGLOBIN 11.8 g/dL (13.7-17.5); LIPEMIA HEMOLYSIS FLAG 80 (0-99); MEAN CELL HEMOGLOBIN 28.6 pg (27.9-34.1); MEAN CELL HEMOGLOBIN CONCENTR. 32.6 g/dL (32.4-36.7); MEAN CELL VOLUME 87.9 fL (81.5-99.8); PLATELET CLUMPS FLAG 0 (0-99); PLATELET COUNT 99 10^3/uL (150-400); RED BLOOD CELL COUNT 4.12 10^6/uL (4.40-6.38); RED CELL DISTRIBUTION WIDTH 14.6 % (11.5-15.2)
[2016-03-29 16:49] LABS: ATYPICAL LYMPHOCYTE FLAG 270 (0-99); LEFT SHIFT FLG 300 (0-99)
[2016-03-29 16:56] LABS: ALANINE AMINOTRANSFERASE 47 IU/L (21-72); ALBUMIN 1.8 g/dL (3.5-5.0); ALKALINE PHOSPHATASE 158 IU/L (38-126); ANION GAP 11 mEq/L (8-16); ASPARTATE AMINOTRANSFERASE 30 IU/L (17-59); BILIRUBIN,TOTAL 0.6 mg/dL (0.1-1.4); CALCIUM 8.5 mg/dL (8.5-10.4); CARBON DIOXIDE 30 mEq/l (22-31); CHLORIDE 100 mEq/L (97-110); CREATININE 0.8 mg/dL (0.7-1.3); GLOMERULAR FILTRATION RATE > 60; GLUCOSE 81 mg/dL (70-100); SODIUM 141 mEq/L (134-144); TOTAL PROTEIN 4.2 g/dL (6.3-8.2)
[2016-03-29 17:30] LABS: SCAN POSITIVE
[2016-03-29 17:35] LABS: PLATELET ESTIMATE DECREASED (ADEQ)
[2016-03-29] MEDS: POTASSIUM Cl (KCl) 100 ML IV SCH (18:06)
[2016-03-29] MEDS ORDERED: HALOPERIDOL LACT 5 MG/ML INJ IVP ONE (19:00)
[2016-03-29] MEDS: FAMOTIDINE 20 MG/NACL 50 ML IV SCH (20:09)
[2016-03-29] MEDS: NS 1,000 ML IV SCH (23:04)
[2016-03-30] MEDS: INSULIN REGULAR HUMAN 100 UNIT/ML SC SCH ×5 (00:01→23:24)
[2016-03-30] MEDS: fentaNYL 100 MCG/2 ML INJ IV PRN ×4 (00:01→23:05)
[2016-03-30] MEDS: VANCOMYCIN 125 MG/2.5 ML UDL PO SCH ×4 (06:03→19:50)
[2016-03-30 06:39] LABS: % IMMATURE GRANULYOCYTES 2.4 % (0.0-1.1); ABSOLUTE IMMATURE GRANULOCYTES 0.13 10^3/uL (0.00-0.10); ADD DIFF? NO; ADD MORPH? NO; ADD SCAN? YES; FRAGMENT RBC FLAG 0 (0-99); HEMATOCRIT 37.3 % (40.0-51.0); LIPEMIA HEMOLYSIS FLAG 80 (0-99); MEAN CELL HEMOGLOBIN CONCENTR. 32.2 g/dL (32.4-36.7); MEAN CELL VOLUME 90.1 fL (81.5-99.8); MEAN PLATELET VOLUME 8.9 fL (8.7-11.7); PLATELET CLUMPS FLAG 0 (0-99); PLATELET COUNT 96 10^3/uL (150-400); RED BLOOD CELL COUNT 4.14 10^6/uL (4.40-6.38); RED CELL DISTRIBUTION WIDTH 14.6 % (11.5-15.2)
[2016-03-30 06:48] LABS: ATYPICAL LYMPHOCYTE FLAG 210 (0-99); LEFT SHIFT FLG 300 (0-99)
[2016-03-30 06:57] LABS: ANION GAP 9 mEq/L (8-16); CALCIUM 8.7 mg/dL (8.5-10.4); CARBON DIOXIDE 27 mEq/l (22-31); CHLORIDE 105 mEq/L (97-110); CREATININE 0.7 mg/dL (0.7-1.3); GLOMERULAR FILTRATION RATE > 60; GLUCOSE 77 mg/dL (70-100); SODIUM 141 mEq/L (134-144)
[2016-03-30 07:28] LABS: SCAN POSITIVE
[2016-03-30] MEDS ORDERED: HALOPERIDOL LACT 5 MG/ML INJ IVP ONE ×2 (07:29→09:00)
[2016-03-30] MEDS ORDERED: HALOPERIDOL LACT 5 MG/ML INJ ONE (07:30)
[2016-03-30 07:34] LABS: PLATELET ESTIMATE DECREASED (ADEQ); TOXIC GRANULATION PRESENT
--- NOTE | 2016-03-30 10:51 | PDINTPN ---
Mailing Manager Progress Note Assessment/Plan: Assessment/Plan: * S/P cardiac arrest * HACA * Resp failure-extubated . stable * Schizoaffective DO-unable to restart Oral meds -replace feeding tube * Pna-off abx * Melanoma * Acute renal failure * Neuro-awake but agitated * VTE proph * Stress ulcer proph Subjective: Agitated. Objective: Vital Signs Temp Pulse Resp BP Pulse Ox 38.4 C H 122 H 29 H 137/74 H 94 03/30/16 10:00 03/30/16 10:00 03/30/16 10:00 03/30/16 10:00 03/30/16 10:00 Laboratory Results 03/30/16 06:20 03/30/16 06:20 03/29/16 03/30/16 03/31/16 05:59 05:59 05:59 Intake Total 2970 1965 Output Total 4650 3150 Balance -1680 -1185 PT 18.4 SEC (12.0-15.0) H 03/27/16 20:05 INR 1.53 (0.83-1.16) H 03/27/16 20:05 Physical Exam - Physical Exam General Appearance: alert, other (confused/agitated) EENT: PERRL/EOMI, normal ENT inspection Neck: non-tender, full range of motion, supple, normal inspection Respiratory: crackles (few), No respiratory distress, No wheezing Cardiac/Chest: normal peripheral pulses, regular rate, rhythm, tachycardia Peripheral Pulses: 2+: carotid (R), carotid (L), femoral (R), femoral (L), dorsalis-pedis (R), dorsalis-pedis (L) Abdomen: normal bowel sounds, non-tender, soft Male Genitalia: deferred Rectal: deferred Skin: normal color, warm/dry Neuro/Psych: No oriented x 3 ICD10 Worksheet Patient Problems: Problems Problem Status Onset C. difficile diarrhea Acute Cardiac arrest Acute Septic shock Acute Bacteremia Acute Hyponatremia Acute Schizophrenia Acute
[2016-03-30] MEDS ORDERED: MIDAZOLAM 2 MG/2 ML VIAL ONE (11:31)
[2016-03-30] MEDS ORDERED: NS 1,000 ML IV ONE (11:51)
--- NOTE | 2016-03-30 11:55 | HOSPPROG ---
Hospitalist Progress Note Assessment/Plan: * s/p Cardiac arrest - [facility] protocol -breif PEA - suspect due to hypovolemia/sepsis * Pancolitis possibly seconday to Ipilimumab + Cdiff -PO Vanco + IV Flagyl -steroids restarted -will dc GI consultation with Onc * Septic shock (resolved) -erta dc'ed 03/29 no evidence of asp pna on cxr -pressors off *recurrent fever -resend blood cultures today * Acute respiratory failure s/p extubation * ARF - improved -watch creatinine s/p IV contrast * Melanoma - on chemo * Schizoaffective disorder -clozaril, invega - resume today * DM II -hold metformin * Acute metabolic encephalopathy (improving) -neuro consult pending check daily labs pt continues to be critically ill case discussed with Dr. Jama and the ICU team Subjective: awake and alert. still confused and not answering questions appropriatly Objective: Vital Signs Temp Pulse Resp BP Pulse Ox 38.4 C H 122 H 29 H 137/74 H 94 03/30/16 10:00 03/30/16 10:00 03/30/16 10:00 03/30/16 10:00 03/30/16 10:00 Laboratory Results 03/30/16 06:20 03/30/16 06:20 03/29/16 03/30/16 03/31/16 05:59 05:59 05:59 Intake Total 2970 1965 Output Total 4650 3150 Balance -1680 -1185 PT 18.4 SEC (12.0-15.0) H 03/27/16 20:05 INR 1.53 (0.83-1.16) H 03/27/16 20:05 - Physical Exam Constitutional: no apparent distress, appears nourished, chronically ill appearing, uncomfortable Cardiovascular: tachycardia, No JVD, No edema Respiratory: reduced air movement, No expiratory wheeze, No inspiratory crackles , No rhonchi Gastrointestinal: normoactive bowel sounds, distension, No guarding, No rebound Genitourinary: no bladder fullness, no bladder tenderness, no renal bruits, floyd in urethra Skin: no rashes or abrasions, no fluctuance, no induration Neurologic: AAOx3 Psychiatric: encephalopathic, poor insight, poor judgement, poor memory ICD10 Worksheet Patient Problems: Problems Problem Status Onset C. difficile diarrhea Acute Hyponatremia Acute Bacteremia Acute Schizophrenia Acute Cardiac arrest Acute Septic shock Acute
[2016-03-30] MEDS: buPROPion XL 150 MG TAB PO SCH (12:23)
[2016-03-30] MEDS: ENOXAPARIN 40 MG/0.4 ML SYR SC SCH (12:23)
[2016-03-30] MEDS: CLOTRIMAZOLE 1% 15 GM CRTUBE TP SCH ×2 (12:24→19:52)
[2016-03-30] MEDS ORDERED: PALIPERIDONE 3 MG TAB.ER PO SCH (12:30)
[2016-03-30] MEDS ORDERED: MIDAZOLAM 2 MG/2 ML VIAL IVP ONE (12:30)
[2016-03-30] MEDS ORDERED: cloZAPine 25 MG TAB PO SCH (12:30)
[2016-03-30 13:53] LABS: POTASSIUM 4.1 mEq/L (3.5-5.2)
[2016-03-30] MEDS ORDERED: ACETAMINOPHEN 325 MG TAB ONE (14:36)
[2016-03-30] MEDS: NS 1,000 ML IV SCH (14:40)
[2016-03-30] MEDS: ACETAMINOPHEN 325 MG TAB PO PRN ×2 (14:42→19:27)
[2016-03-30 18:40] LABS: POTASSIUM 3.9 mEq/L (3.5-5.2)
[2016-03-30] MEDS: FAMOTIDINE 20 MG/NACL 50 ML IV SCH (19:51)
[2016-03-30] MEDS: ESCITALOPRAM OXALATE 10 MG TAB TUBE SCH (19:51)
[2016-03-30] MEDS: POTASSIUM Cl (KCl) 100 ML IV SCH ×2 (20:32→21:12)
[2016-03-31] MEDS: ACETAMINOPHEN 325 MG TAB PO PRN ×3 (01:13→16:41)
[2016-03-31] MEDS: fentaNYL 100 MCG/2 ML INJ IV PRN ×3 (01:13→21:38)
[2016-03-31 04:23] LABS: ABSOLUTE NRBC COUNT 0.03 10^3/uL (0-0.01); ADD DIFF? YES; ADD MORPH? NO; FRAGMENT RBC FLAG 0 (0-99); HEMATOCRIT 35.9 % (40.0-51.0); HEMOGLOBIN 11.4 g/dL (13.7-17.5); LIPEMIA HEMOLYSIS FLAG 80 (0-99); MEAN CELL HEMOGLOBIN CONCENTR. 31.8 g/dL (32.4-36.7); MEAN CELL VOLUME 91.3 fL (81.5-99.8); MEAN PLATELET VOLUME 9.3 fL (8.7-11.7); NRBC-AUTO% 0.4 % (0.0-0.2); PLATELET CLUMPS FLAG 0 (0-99); PLATELET COUNT 112 10^3/uL (150-400); RED BLOOD CELL COUNT 3.93 10^6/uL (4.40-6.38); RED CELL DISTRIBUTION WIDTH 14.8 % (11.5-15.2)
[2016-03-31 04:33] LABS: ADD SCAN? NO; ATYPICAL LYMPHOCYTE FLAG 170 (0-99); LEFT SHIFT FLG 230 (0-99)
[2016-03-31] MEDS: DEXMEDETOMIDINE HCL 400 MCG in NS 100 ML IV SCH ×4 (04:38→18:47)
[2016-03-31 04:49] LABS: ANION GAP 7 mEq/L (8-16); CARBON DIOXIDE 27 mEq/l (22-31); CHLORIDE 113 mEq/L (97-110); CREATININE 0.7 mg/dL (0.7-1.3); GLOMERULAR FILTRATION RATE > 60; GLUCOSE 75 mg/dL (70-100); POTASSIUM 4.5 mEq/L (3.5-5.2); SODIUM 147 mEq/L (134-144)
[2016-03-31] MEDS: INSULIN REGULAR HUMAN 100 UNIT/ML SC SCH ×4 (05:02→23:18)
[2016-03-31] MEDS: VANCOMYCIN 125 MG/2.5 ML UDL PO SCH ×4 (05:02→20:49)
[2016-03-31 05:16] LABS: PLATELET ESTIMATE DECREASED (ADEQ)
[2016-03-31 05:17] LABS: TOXIC GRANULATION PRESENT
--- NOTE | 2016-03-31 05:43 | PDINTPN ---
Computer Numeric Control Setter Progress Note Assessment/Plan: Assessment/Plan: * S/P cardiac arrest * HACA * Resp failure-increased fio2 req last pm. On BIPAP -check CXR * Schizoaffective DO-home meds restarted. Still agitated but better. * Pna-off abx * Melanoma * Acute renal failure * Neuro-awake but agitated * VTE proph * Stress ulcer proph Subjective: Agitated. Objective: Vital Signs Temp Pulse Resp BP Pulse Ox 38.1 C 108 H 24 H 136/84 H 96 03/31/16 04:00 03/31/16 05:00 03/31/16 05:00 03/31/16 04:00 03/31/16 05:00 Laboratory Results 03/31/16 04:10 03/31/16 04:10 03/29/16 03/30/16 03/31/16 05:59 05:59 05:59 Intake Total 2970 1965 2693.8 Output Total 4650 3150 2200 Balance -1680 -1185 493.8 PT 18.4 SEC (12.0-15.0) H 03/27/16 20:05 INR 1.53 (0.83-1.16) H 03/27/16 20:05 Physical Exam - Physical Exam General Appearance: anxiety, No alert EENT: PERRL/EOMI, normal ENT inspection Neck: non-tender, full range of motion, supple, normal inspection Respiratory: rhonchi (scattered), No stridor, No wheezing Cardiac/Chest: normal peripheral pulses, regular rate, rhythm, systolic murmur Peripheral Pulses: 2+: carotid (R), carotid (L), femoral (R), femoral (L), dorsalis-pedis (R), dorsalis-pedis (L) Abdomen: normal bowel sounds, non-tender, soft Male Genitalia: deferred Rectal: deferred Skin: normal color, warm/dry Extremities: normal range of motion, non-tender, normal inspection, normal capillary refill Neuro/Psych: No alert ICD10 Worksheet Patient Problems: Problems Problem Status Onset C. difficile diarrhea Acute Cardiac arrest Acute Septic shock Acute Bacteremia Acute Hyponatremia Acute Schizophrenia Acute
[2016-03-31] MEDS: buPROPion XL 150 MG TAB PO SCH (08:26)
[2016-03-31] MEDS: ENOXAPARIN 40 MG/0.4 ML SYR SC SCH (08:26)
[2016-03-31] MEDS: CLOTRIMAZOLE 1% 15 GM CRTUBE TP SCH ×2 (08:27→20:32)
[2016-03-31] MEDS: PALIPERIDONE 9 MG TAB.ER PO SCH (08:47)
[2016-03-31] MEDS ORDERED: cloZAPine 25 MG TAB PO SCH (09:00)
--- NOTE | 2016-03-31 12:14 | HOSPPROG ---
Hospitalist Progress Note Assessment/Plan: 55 y/o male with history of schizoaffective disorder presenting s/p Cardiac arrest with HACA protocol thought to be secondary to hypovolemia in the setting of pancolitis * Pancolitis possibly secondary to Ipilimumab + Cdiff -PO Vanco (IV flagyl dc'ed 03/30) -steroids restarted 03/29 -consider GI consult if not improving *recurrent fever since stopping erta with repeat cxr today showing bilat infiltrates possibly secondary to aspiration pneumonia vs pulm edema -repeat cultures pending -resume erta to complete 7 days of treatment -consider diuretics if resp status worsens -check bnp * Septic shock (resolved) -erta dc'ed 03/29 with erta resumed today -pressors off * Acute respiratory failure s/p extubation * ARF - improved -watch creatinine s/p IV contrast * Melanoma - on chemo * Schizoaffective disorder -clozaril, invega - resume today and will need to be uptitrated * DM II -hold metformin * Acute metabolic encephalopathy with episodes of agitation (improved since started precedex) -taper precedex and hope to dc once psych meds are back at therapeutic dosages check daily labs pt continues to be critically ill case discussed with Dr. Jama and the ICU team Subjective: minimally responsive Objective: Vital Signs Temp Pulse Resp BP Pulse Ox 38 C 90 13 99/43 L 95 03/31/16 10:00 03/31/16 10:00 03/31/16 10:00 03/31/16 10:00 03/31/16 10:00 Laboratory Results 03/31/16 04:10 03/30/16 03/31/16 04/01/16 05:59 05:59 05:59 Intake Total 1965 2693.8 Output Total 3150 2200 Balance -1185 493.8 PT 18.4 SEC (12.0-15.0) H 03/27/16 20:05 INR 1.53 (0.83-1.16) H 03/27/16 20:05 - Physical Exam Constitutional: chronically ill appearing Cardiovascular: regular rate and rhythym, no murmur, rub, or gallop Respiratory: no respiratory distress, no rales or rhonchi, clear to auscultation Gastrointestinal: normoactive bowel sounds, distension (improving), No guarding , No rebound Neurologic: CN II-XII Intact, other (oriented to person only aaox2), No facial droop Psychiatric: encephalopathic, poor insight, poor judgement, poor memory ICD10 Worksheet Patient Problems: Problems Problem Status Onset C. difficile diarrhea Acute Hyponatremia Acute Bacteremia Acute Schizophrenia Acute Cardiac arrest Acute Septic shock Acute
[2016-03-31] MEDS ORDERED: D5W 1/2 NS W/ 20 KCl/L 1,000 ML IV SCH (12:15)
[2016-03-31 12:19] LABS: POTASSIUM 4.5 mEq/L (3.5-5.2)
--- NOTE | 2016-03-31 12:21 | SOAPPROG ---
SOAP Progress Note Assessment/Plan: Assessment: 1.) S/P Cardiac arrest 2.) Resp. failure 3.) ARF 4.) C. Diff colitis and diarrhea, improving 5.) RUE Melanoma, 07/2014. Recurrence in [place], 10/26. S/P two cycles of Ipilumumab. 6.) Underlying psychiatric disorder Plan: ICU maria d noted. Volume of diarrhea is much better in past 24 hours. On TX. for C. Diff. His prior Melanoma Tx with Ipilumumab is known to cause diarrhea, generally responsive to steroids. Given the gravity of his situation, we don't anticipate continued Tx for Melanoma in the adjuvant setting. 03/31/16 12:17 Subjective: Pt appears obtunded, with family member at the bedside. Objective: Agonal respirations, unresponsive, pale, anicteric, no oral lesions Chest- agonal respirations, adequate air movement CVS- RSR, ABD- distended, BS+, NT EXT- warm, well perfused. Labs- noted here. Vital Signs Temp Pulse Resp BP Pulse Ox 38 C 90 13 99/43 L 95 03/31/16 10:00 03/31/16 10:00 03/31/16 10:00 03/31/16 10:00 03/31/16 10:00 Laboratory Results 03/31/16 04:10 03/30/16 03/31/16 04/01/16 05:59 05:59 05:59 Intake Total 1965 2693.8 Output Total 3150 2200 Balance -1185 493.8 PT 18.4 SEC (12.0-15.0) H 03/27/16 20:05 INR 1.53 (0.83-1.16) H 03/27/16 20:05 ICD10 Worksheet Patient Problems: Problems Problem Status Onset C. difficile diarrhea Acute Cardiac arrest Acute Septic shock Acute Bacteremia Acute Hyponatremia Acute Schizophrenia Acute
[2016-03-31] MEDS: ERTAPENEM 1 GM in NS 100 ML IV SCH (13:01)
[2016-03-31] MEDS: POTASSIUM Cl (KCl) 20 MEQ in 1/2 NS 1,000 ML IV SCH ×3 (13:57→21:49)
[2016-03-31 18:53] LABS: POTASSIUM 4.9 mEq/L (3.5-5.2)
[2016-03-31] MEDS: FAMOTIDINE 20 MG/NACL 50 ML IV SCH (20:30)
[2016-03-31] MEDS: ESCITALOPRAM OXALATE 10 MG TAB TUBE SCH (20:41)
[2016-03-31] MEDS: PETROLAT,WHT/MIN OIL/SOD CHL 3.5 GM OPHT.OINT EACHEYE PRN (21:24)
[2016-04-01] MEDS: DEXMEDETOMIDINE HCL 400 MCG in NS 100 ML IV SCH ×2 (01:59→08:05)
[2016-04-01] MEDS: fentaNYL 100 MCG/2 ML INJ IV PRN (02:15)
[2016-04-01 04:31] LABS: ABSOLUTE NRBC COUNT 0.02 10^3/uL (0-0.01); ADD DIFF? YES; ADD MORPH? NO; FRAGMENT RBC FLAG 0 (0-99); HEMATOCRIT 37.2 % (40.0-51.0); HEMOGLOBIN 11.6 g/dL (13.7-17.5); LIPEMIA HEMOLYSIS FLAG 80 (0-99); MEAN CELL HEMOGLOBIN 28.9 pg (27.9-34.1); MEAN CELL HEMOGLOBIN CONCENTR. 31.2 g/dL (32.4-36.7); MEAN CELL VOLUME 92.8 fL (81.5-99.8); MEAN PLATELET VOLUME 9.1 fL (8.7-11.7); NRBC-AUTO% 0.3 % (0.0-0.2); PLATELET CLUMPS FLAG 0 (0-99); PLATELET COUNT 103 10^3/uL (150-400); RED BLOOD CELL COUNT 4.01 10^6/uL (4.40-6.38); RED CELL DISTRIBUTION WIDTH 14.9 % (11.5-15.2)
[2016-04-01 04:41] LABS: ADD SCAN? NO; ATYPICAL LYMPHOCYTE FLAG 260 (0-99); LEFT SHIFT FLG 150 (0-99)
[2016-04-01 04:45] LABS: ANION GAP 7 mEq/L (8-16); CALCIUM 9.2 mg/dL (8.5-10.4); CARBON DIOXIDE 27 mEq/l (22-31); CHLORIDE 113 mEq/L (97-110); CREATININE 0.9 mg/dL (0.7-1.3); GLOMERULAR FILTRATION RATE > 60; GLUCOSE 107 mg/dL (70-100); POTASSIUM 4.8 mEq/L (3.5-5.2); SODIUM 147 mEq/L (134-144)
[2016-04-01] MEDS: INSULIN REGULAR HUMAN 100 UNIT/ML SC SCH ×3 (05:00→17:55)
[2016-04-01 05:19] LABS: PLATELET ESTIMATE DECREASED (ADEQ)
[2016-04-01] MEDS: POTASSIUM Cl (KCl) 20 MEQ in 1/2 NS 1,000 ML IV SCH ×2 (05:40→14:18)
[2016-04-01] MEDS: VANCOMYCIN 125 MG/2.5 ML UDL PO SCH ×4 (06:01→20:02)
[2016-04-01] MEDS: ERTAPENEM 1 GM in NS 100 ML IV SCH (08:28)
[2016-04-01] MEDS: PALIPERIDONE 9 MG TAB.ER PO SCH (08:28)
[2016-04-01] MEDS: ENOXAPARIN 40 MG/0.4 ML SYR SC SCH (08:28)
[2016-04-01] MEDS: buPROPion XL 150 MG TAB PO SCH (08:28)
[2016-04-01] MEDS: cloZAPine 25 MG TAB PO SCH (08:28)
[2016-04-01] MEDS: CLOTRIMAZOLE 1% 15 GM CRTUBE TP SCH ×2 (08:29→21:23)
[2016-04-01] MEDS ORDERED: HALOPERIDOL LACT 5 MG/ML INJ IVP PRN (10:08)
--- NOTE | 2016-04-01 12:39 | PDINTPN ---
Telephonic Nurse Case Manager Progress Note Assessment/Plan: Assessment/plan: 55 M admitted 03/26/16 with cardiac arrest- collapsed at nursing station in [place] and resuscitated quickly but intubated in ED. Found to have PNA, Cdiff and MAKENZIE; required pressors but has been improving. Extubated with sluggish MS and required Bipap until 03/31 AM. * s/p cardiac arrest with hypothermia protocol completed. Currently somnolent but increasing awareness after precedex dc'd. * Respiratory fialure with hypoxia 2/ arrest and presumed aspiration PNA- Remains with minimal O2 requirement off Bipap. Would avoid NIPPV if mental status is poor to avoid re-aspiration, but not likely to require advanced airway at this point. CXR shows increased bilateral infiltrates from 03/28 to - consider lasix if O2 requirements go up. Continue ertapenem for now * Elevated right diaphragm- uncertain chronicity. follow * Schizoaffective d/o- on home meds * Cdiff colitis with large stool output. Remains on po vanco and IV flagyl. Serum HCO3 stable. * Hx hyponatremia- now with Na 147 likely related to volume loss from stool. Watch closely. DDAVP not indicated. Subjective: somnolent but without complaints Objective: Vital Signs Temp Pulse Resp BP Pulse Ox 37.9 C 110 H 23 H 115/59 L 90 L 04/01/16 12:00 04/01/16 12:00 04/01/16 12:00 04/01/16 12:00 04/01/16 12:00 Microbiology 03/26/16 21:30 Blood Culture - Final Blood 03/26/16 20:35 Blood Culture - Final Blood Laboratory Results 04/01/16 04:12 04/01/16 04:12 03/31/16 04/01/16 04/02/16 05:59 05:59 05:59 Intake Total 2693.8 3496 Output Total 2200 1400 175 Balance 493.8 2096 -175 PT 18.4 SEC (12.0-15.0) H 03/27/16 20:05 INR 1.53 (0.83-1.16) H 03/27/16 20:05 Physical Exam - Physical Exam General Appearance: no apparent distress, other (somnolent, but arouses) EENT: PERRL/EOMI Neck: full range of motion, supple, normal inspection Respiratory: decreased breath sounds, rhonchi, No stridor, No wheezing Cardiac/Chest: normal peripheral pulses, regular rate, rhythm, No edema Abdomen: non-tender, soft, No distended, No guarding Skin: normal color, warm/dry, No cyanosis Lymphatic: no adenopathy Extremities: normal range of motion, No pedal edema Neuro/Psych: no motor/sensory deficits, No abnormal mica sizer II-XII, No motor weakness ICD10 Worksheet Patient Problems: Problems Problem Status Onset C. difficile diarrhea Acute Cardiac arrest Acute Septic shock Acute Bacteremia Acute Hyponatremia Acute Schizophrenia Acute
--- NOTE | 2016-04-01 13:56 | SOAPPROG ---
SOAP Progress Note Assessment/Plan: Assessment: 1.) S/P Cardiac arrest 2.) Resp. failure 3.) ARF 4.) C. Diff colitis and diarrhea. Amount of diarrhea is still copious (1800ml over the last 24 hours). It is certainly possible for him to have both C.Diff colitis and autoimmune colitis fro the adjuvant ipilimumab he received for his melanoma. I would recommend adding 1mg/kg of either prednisone or solumedrol to his current treatment regimen to cover the later possibility 5.) RUE Melanoma, 07/2014. Recurrence in [place], 10/26. S/P two cycles of ipilimumab. No more ipilimumab is currently planned due to toxicity. 6.) Underlying psychiatric disorder - speech is rambling. Plan: ICU course noted. Volume of diarrhea is still quite high despite Rx for C.Diff. I would add steroids as above. Given the gravity of his situation, we don't anticipate continued Tx for Melanoma in the adjuvant setting. Subjective: Rambling speech. Objective: Vital Signs Temp Pulse Resp BP Pulse Ox 37.9 C 110 H 23 H 115/59 L 90 L 04/01/16 12:00 04/01/16 12:00 04/01/16 12:00 04/01/16 12:00 04/01/16 12:00 Microbiology 03/26/16 21:30 Blood Culture - Final Blood 03/26/16 20:35 Blood Culture - Final Blood Laboratory Results 04/01/16 04:12 04/01/16 04:12 03/30/16 03/31/16 04/01/16 23:59 23:59 23:59 Intake Total 2745 2604.8 1815 Output Total 3050 1300 2425 Balance -305 1304.8 -610 PT 18.4 SEC (12.0-15.0) H 03/27/16 20:05 INR 1.53 (0.83-1.16) H 03/27/16 20:05 Physical Exam - Physical Exam General Appearance: moderate distress Respiratory: rhonchi (bilateral) Abdomen: other (1600 ml stool from rectal tube) Neuro/Psych: other (rambling speech) ICD10 Worksheet Patient Problems: Problems Problem Status Onset C. difficile diarrhea Acute Cardiac arrest Acute Septic shock Acute Bacteremia Acute Hyponatremia Acute Schizophrenia Acute
[2016-04-01] MEDS ORDERED: METHYLPREDNISOLONE SOD SUCC IV SCH (14:00)
[2016-04-01] MEDS ORDERED: D5W IV SCH (14:00)
[2016-04-01] MEDS ORDERED: HALOPERIDOL LACT 5 MG/ML INJ ONE (14:01)
[2016-04-01] MEDS: HALOPERIDOL LACT 5 MG/ML INJ IVP PRN ×2 (14:04→21:23)
[2016-04-01] MEDS: methylPREDNISolone SOD SUCC 125 MG/2 ML VIAL IVP SCH (14:18)
[2016-04-01] MEDS: NICOTINE 14 MG/24 HR PATCH TD SCH (14:18)
[2016-04-01] MEDS: ACETAMINOPHEN 325 MG TAB PO PRN (14:42)
[2016-04-01] MEDS: PANTOPRAZOLE SODIUM 40 MG TAB PO SCH (14:43)
[2016-04-01 14:44] LABS: POTASSIUM 4.7 mEq/L (3.5-5.2)
--- NOTE | 2016-04-01 15:38 | HOSPPROG ---
Hospitalist Progress Note Assessment/Plan: * s/p Cardiac arrest - [facility] protocol -breif PEA - suspect due to hypovolemia/sepsis * Pancolitis possibly seconday to Ipilimumab + Cdiff -PO Vanco + IV Flagyl -steroids restarted - possibly autoimmune reaction to chemotherapy - on steroids * possible pneumonia * continue Invanz *recurrent fever * blood cultures negative * low-grade today * Acute respiratory failure s/p extubation * ARF - improved -watch creatinine s/p IV contrast * Melanoma - on chemo * Schizoaffective disorder * psych consult to help with * DM II -hold metformin * Acute metabolic encephalopathy (improving) -neuro consult pending * Septic shock (resolved) * 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 Still large amount of diarrhea Objective: Vital Signs Temp Pulse Resp BP Pulse Ox 38.1 C 116 H 25 H 95/44 L 92 04/01/16 14:00 04/01/16 14:00 04/01/16 14:00 04/01/16 14:00 04/01/16 14:00 Microbiology 03/26/16 21:30 Blood Culture - Final Blood 03/26/16 20:35 Blood Culture - Final Blood Laboratory Results 04/01/16 04:12 04/01/16 14:13 03/31/16 04/01/16 04/02/16 05:59 05:59 05:59 Intake Total 2693.8 3496 Output Total 2200 1400 1625 Balance 493.8 2096 -1625 PT 18.4 SEC (12.0-15.0) H 03/27/16 20:05 INR 1.53 (0.83-1.16) H 03/27/16 20:05 discussed with pulmonology chest x-ray 2 days ago personally reviewed interpreted - Physical Exam Constitutional: no apparent distress, appears nourished, not in pain Eyes: anicteric sclera, EOMI Ears, Nose, Mouth, Throat: moist mucous membranes, hearing normal Cardiovascular: regular rate and rhythym, no murmur, rub, or gallop Respiratory: no respiratory distress, no rales or rhonchi, clear to auscultation Gastrointestinal: normoactive bowel sounds, soft, non-tender abdomen, distension Skin: warm Neurologic: other, No weakness Psychiatric: agitated ICD10 Worksheet Patient Problems: Problems Problem Status Onset C. difficile diarrhea Acute Cardiac arrest Acute Septic shock Acute Bacteremia Acute Hyponatremia Acute Schizophrenia Acute
[2016-04-01] MEDS: ESCITALOPRAM OXALATE 10 MG TAB TUBE SCH (20:01)
[2016-04-01] MEDS ORDERED: cloZAPine 25 MG TAB PO SCH (21:00)
[2016-04-02] MEDS: POTASSIUM Cl (KCl) 20 MEQ in 1/2 NS 1,000 ML IV SCH ×3 (00:11→23:28)
[2016-04-02] MEDS: INSULIN REGULAR HUMAN 100 UNIT/ML SC SCH ×4 (00:15→17:29)
[2016-04-02 04:54] LABS: ADD MORPH? NO; ADD SCAN? YES; FRAGMENT RBC FLAG 0 (0-99); HEMATOCRIT 33.4 % (40.0-51.0); HEMOGLOBIN 10.4 g/dL (13.7-17.5); LIPEMIA HEMOLYSIS FLAG 80 (0-99); MEAN CELL HEMOGLOBIN CONCENTR. 31.1 g/dL (32.4-36.7); MEAN PLATELET VOLUME 9.3 fL (8.7-11.7); PLATELET CLUMPS FLAG 0 (0-99); PLATELET COUNT 124 10^3/uL (150-400); RED BLOOD CELL COUNT 3.71 10^6/uL (4.40-6.38)
[2016-04-02 05:06] LABS: ATYPICAL LYMPHOCYTE FLAG 300 (0-99); LEFT SHIFT FLG 130 (0-99)
[2016-04-02 05:12] LABS: ANION GAP 4 mEq/L (8-16); CALCIUM 8.6 mg/dL (8.5-10.4); CARBON DIOXIDE 26 mEq/l (22-31); CHLORIDE 115 mEq/L (97-110); CREATININE 0.7 mg/dL (0.7-1.3); GLOMERULAR FILTRATION RATE > 60; GLUCOSE 178 mg/dL (70-100); POTASSIUM 4.7 mEq/L (3.5-5.2); SODIUM 145 mEq/L (134-144)
[2016-04-02 05:22] LABS: SCAN POSITIVE
[2016-04-02 05:23] LABS: ADD DIFF? YES
[2016-04-02 05:29] LABS: PLATELET ESTIMATE DECREASED (ADEQ); TOXIC GRANULATION PRESENT
[2016-04-02] MEDS: VANCOMYCIN 125 MG/2.5 ML UDL PO SCH ×4 (05:50→20:58)
[2016-04-02] MEDS: ERTAPENEM 1 GM in NS 100 ML IV SCH (08:38)
[2016-04-02] MEDS: buPROPion XL 150 MG TAB PO SCH (08:39)
[2016-04-02] MEDS: NICOTINE 14 MG/24 HR PATCH TD SCH (08:39)
[2016-04-02] MEDS: PANTOPRAZOLE SODIUM 40 MG TAB PO SCH (08:39)
[2016-04-02] MEDS: cloZAPine 25 MG TAB PO SCH (08:39)
[2016-04-02] MEDS: ENOXAPARIN 40 MG/0.4 ML SYR SC SCH (08:39)
[2016-04-02] MEDS: PALIPERIDONE 9 MG TAB.ER PO SCH (08:39)
[2016-04-02] MEDS: CLOTRIMAZOLE 1% 15 GM CRTUBE TP SCH ×2 (09:21→20:57)
[2016-04-02] MEDS: fentaNYL 100 MCG/2 ML INJ IV PRN (09:31)
--- NOTE | 2016-04-02 10:47 | SOAPPROG ---
SOAP Progress Note Assessment/Plan: Assessment: 1.) S/P Cardiac arrest 2.) Resp. failure 3.) ARF 4.) C. Diff colitis and diarrhea. His rectal tube is out. He had 7 or 8 stools overnight, but only 1 so far this AM. 5.) RUE Melanoma, 07/2014. Recurrence in [place], 10/26. S/P two cycles of ipilimumab. No more ipilimumab is currently planned due to toxicity. 6.) Underlying psychiatric disorder - speech is rambling. Plan: ICU course noted. There is a suggestion that his stools may be slowing. I would continue RX for both C.Diff and for autoimmune colitis. Given the gravity of his situation, we don't anticipate continued Tx for Melanoma in the adjuvant setting. Subjective: Responds to voice. Smiling. Objective: Vital Signs Temp Pulse Resp BP Pulse Ox 36.2 C 87 16 116/85 H 93 04/02/16 10:00 04/02/16 10:00 04/02/16 10:00 04/02/16 10:00 04/02/16 10:00 Microbiology 03/26/16 21:30 Blood Culture - Final Blood 03/26/16 20:35 Blood Culture - Final Blood Laboratory Results 04/02/16 04:40 04/02/16 04:40 03/31/16 04/01/16 04/02/16 23:59 23:59 23:59 Intake Total 2604.8 3419.9 2309 Output Total 1300 2475 825 Balance 1304.8 944.9 1484 PT 18.4 SEC (12.0-15.0) H 03/27/16 20:05 INR 1.53 (0.83-1.16) H 03/27/16 20:05 Physical Exam - Physical Exam Respiratory: rhonchi (bilat) Abdomen: distended Neuro/Psych: other (schizoaffective disorder) ICD10 Worksheet Patient Problems: Problems Problem Status Onset C. difficile diarrhea Acute Cardiac arrest Acute Septic shock Acute Bacteremia Acute Hyponatremia Acute Schizophrenia Acute
[2016-04-02] MEDS: HALOPERIDOL LACT 5 MG/ML INJ IVP PRN (11:52)
[2016-04-02] MEDS ORDERED: ONDANSETRON 4 MG/2 ML VIAL IVP PRN (12:43)
[2016-04-02] MEDS ORDERED: cloZAPine 25 MG TAB PO SCH (14:12)
--- NOTE | 2016-04-02 14:14 | HOSPPROG ---
Hospitalist Progress Note Assessment/Plan: * s/p Cardiac arrest - HACA protocol -breif PEA - suspect due to hypovolemia/sepsis * Pancolitis possibly seconday to Ipilimumab + Cdiff -PO Vanco + IV Flagyl - possibly autoimmune reaction to chemotherapy - on steroids * possible pneumonia * continue Invanz for now * repeat checks x-ray *recurrent fever * blood cultures negative * resolved * Acute respiratory failure s/p extubation * ARF - improved -watch creatinine s/p IV contrast * Melanoma - on chemo * Schizoaffective disorder * psych consult to help with * increased nighttime clozaril * DM II -hold metformin * Acute metabolic encephalopathy (improving) * Septic shock (resolved) * 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 Is less agitated Objective: Vital Signs Temp Pulse Resp BP Pulse Ox 36.4 C 84 12 110/51 L 93 04/02/16 12:00 04/02/16 14:00 04/02/16 14:00 04/02/16 14:00 04/02/16 14:00 Microbiology 03/26/16 21:30 Blood Culture - Final Blood 03/26/16 20:35 Blood Culture - Final Blood Laboratory Results 04/02/16 04:40 04/02/16 04:40 04/01/16 04/02/16 04/03/16 05:59 05:59 05:59 Intake Total 3496 3613.9 300 Output Total 1400 2450 Balance 2096 1163.9 300 PT 18.4 SEC (12.0-15.0) H 03/27/16 20:05 INR 1.53 (0.83-1.16) H 03/27/16 20:05 - Physical Exam Constitutional: no apparent distress, appears nourished, not in pain Eyes: anicteric sclera, EOMI Ears, Nose, Mouth, Throat: moist mucous membranes, hearing normal Cardiovascular: regular rate and rhythym, no murmur, rub, or gallop Respiratory: no respiratory distress, no rales or rhonchi, clear to auscultation Gastrointestinal: normoactive bowel sounds, soft, non-tender abdomen, distension Skin: warm Neurologic: No AAOx3 ICD10 Worksheet Patient Problems: Problems Problem Status Onset C. difficile diarrhea Acute Cardiac arrest Acute Septic shock Acute Bacteremia Acute Hyponatremia Acute Schizophrenia Acute
[2016-04-02] MEDS: methylPREDNISolone SOD SUCC 125 MG/2 ML VIAL IVP SCH (15:03)
--- NOTE | 2016-04-02 15:07 | SOAPPROG ---
JAYDA Progress Note Assessment/Plan: Assessment: Full note to follow. Pt is a 55 y/o S male who has a hx of Schizoaffective D/O who has been recently stable on Clozaril, Invega po, Wellbutrin and Lexapro. Pt had an [place] at [place] and was off his psych meds for 4 days. Pharmacy restarted his antidepressants but his Clozaril needs tapering. Plan:Will titrate up Clozaril to previous dose-as pt is in the hospital can titrate quickly-will increase HS dose 04/02-already ordered by hospitalist-if no side effects can usually increase by 50mg daily. Dr Chambers has put in a call to Dr Morales at [facility] who knows the pt as med regime is out of ordinary with 2 antidepressants in a pt who tends toward dayo and a very high dose of Invega Agree with using Haldol prn for agitation as this helped yesterday for now will keep pt on Invega 9mg daily which is the usual maximum dose Observe for psychotic/manic symptoms as antidepressants can cause this in a pt with Schizoaffective D/O Bipolar type 04/02/16 15:09 04/02/16 15:11 04/03/16 07:30 04/03/16 09:31 Subjective: Pt c/o feeling depressed Objective: Vital Signs Temp Pulse Resp BP Pulse Ox 36.4 C 84 12 110/51 L 93 04/02/16 12:00 04/02/16 14:00 04/02/16 14:00 04/02/16 14:00 04/02/16 14:00 Microbiology 03/26/16 21:30 Blood Culture - Final Blood Laboratory Results 04/02/16 04:40 04/02/16 04:40 04/01/16 04/02/16 04/03/16 05:59 05:59 05:59 Intake Total 3496 3613.9 300 Output Total 1400 2450 Balance 2096 1163.9 300 PT 18.4 SEC (12.0-15.0) H 03/27/16 20:05 INR 1.53 (0.83-1.16) H 03/27/16 20:05 Pt is calm but sleepy mood-depressed affect-const chronic AH no S/H I no delusions memory-fair conc-fair no sx of acute psychosis I/J-fair - Pending Discharge Pending Discharge Within 24 Hours: No Pending Discharge Within 48 Hours: No ICD10 Worksheet Patient Problems: Problems Problem Status Onset C. difficile diarrhea Acute Cardiac arrest Acute Septic shock Acute Bacteremia Acute Hyponatremia Acute Schizophrenia Acute
--- NOTE | 2016-04-02 15:07 | PDINTPN ---
Sleeping Car Porter Progress Note Assessment/Plan: Assessment/plan: 55 M admitted 03/26/16 with cardiac arrest- collapsed at nursing station in [place] and resuscitated quickly but intubated in ED. Found to have PNA, Cdiff and MAKENZIE; required pressors but has been improving. Extubated with sluggish MS and required Bipap until 03/31 AM. * s/p cardiac arrest/syncope with hypothermia protocol completed. Continues to improve. * Respiratory failure with hypoxia 2/2 arrest and presumed aspiration PNA- Remains with minimal O2 requirement. Continue ertapenem for now * Elevated right diaphragm- uncertain chronicity. follow * Schizoaffective d/o- on home meds * Cdiff colitis with large stool output. Remains on po vanco and IV flagyl. Serum HCO3 stable. Discussed chemo with oncology yesterday and GI effects- started steroids. Rectal tube out. * Hx hyponatremia- now with Na 147 likely related to volume loss from stool. Watch closely. DDAVP not indicated. 04/02/16 15:04 Subjective: More alert tofday though remains somnolent. No specific complaints related to current hospital stay Objective: Vital Signs Temp Pulse Resp BP Pulse Ox 36.4 C 84 12 110/51 L 93 04/02/16 12:00 04/02/16 14:00 04/02/16 14:00 04/02/16 14:00 04/02/16 14:00 Microbiology 03/26/16 21:30 Blood Culture - Final Blood Laboratory Results 04/02/16 04:40 04/02/16 04:40 04/01/16 04/02/16 04/03/16 05:59 05:59 05:59 Intake Total 3496 3613.9 300 Output Total 1400 2450 Balance 2096 1163.9 300 PT 18.4 SEC (12.0-15.0) H 03/27/16 20:05 INR 1.53 (0.83-1.16) H 03/27/16 20:05 Physical Exam - Physical Exam General Appearance: alert, other (somnolent but answers questions and cooperative) EENT: PERRL/EOMI, normal ENT inspection Neck: full range of motion, supple Respiratory: lungs clear, normal breath sounds, No respiratory distress, No stridor, No wheezing Cardiac/Chest: normal peripheral pulses, regular rate, rhythm, No edema Abdomen: non-tender, soft, No distended Skin: normal color, warm/dry, No rash Lymphatic: no adenopathy Extremities: non-tender, No pedal edema Neuro/Psych: alert ICD10 Worksheet Patient Problems: Problems Problem Status Onset C. difficile diarrhea Acute Cardiac arrest Acute Septic shock Acute Bacteremia Acute Hyponatremia Acute Schizophrenia Acute
[2016-04-02 18:32] LABS: POTASSIUM 4.3 mEq/L (3.5-5.2)
[2016-04-02] MEDS: ESCITALOPRAM OXALATE 10 MG TAB TUBE SCH (20:58)
[2016-04-03] MEDS: INSULIN REGULAR HUMAN 100 UNIT/ML SC SCH ×4 (00:56→17:42)
[2016-04-03] MEDS ORDERED: PROPOFOL/EMULSION 1,000 MG/100 ML BOTTLE IV ONE (05:19)
[2016-04-03] MEDS: VANCOMYCIN 125 MG/2.5 ML UDL PO SCH ×4 (05:28→21:14)
[2016-04-03 05:32] LABS: % IMMATURE GRANULYOCYTES 1.3 % (0.0-1.1); ABSOLUTE IMMATURE GRANULOCYTES 0.09 10^3/uL (0.00-0.10); ADD DIFF? NO; ADD SCAN? YES; FRAGMENT RBC FLAG 0 (0-99); HEMATOCRIT 33.3 % (40.0-51.0); HEMOGLOBIN 10.4 g/dL (13.7-17.5); LEFT SHIFT FLG 20 (0-99); LIPEMIA HEMOLYSIS FLAG 80 (0-99); MEAN CELL HEMOGLOBIN 28.5 pg (27.9-34.1); MEAN CELL HEMOGLOBIN CONCENTR. 31.2 g/dL (32.4-36.7); MEAN CELL VOLUME 91.2 fL (81.5-99.8); MEAN PLATELET VOLUME 9.5 fL (8.7-11.7); PLATELET CLUMPS FLAG 0 (0-99); PLATELET COUNT 144 10^3/uL (150-400); RED BLOOD CELL COUNT 3.65 10^6/uL (4.40-6.38); RED CELL DISTRIBUTION WIDTH 15.1 % (11.5-15.2)
[2016-04-03 05:44] LABS: ANION GAP 4 mEq/L (8-16); CALCIUM 8.7 mg/dL (8.5-10.4); CARBON DIOXIDE 26 mEq/l (22-31); CHLORIDE 111 mEq/L (97-110); CREATININE 0.7 mg/dL (0.7-1.3); GLOMERULAR FILTRATION RATE > 60; GLUCOSE 132 mg/dL (70-100); POTASSIUM 5.4 mEq/L (3.5-5.2); SODIUM 141 mEq/L (134-144)
[2016-04-03 05:49] LABS: ATYPICAL LYMPHOCYTE FLAG 300 (0-99)
[2016-04-03 06:20] LABS: SCAN NEGATIVE
[2016-04-03 06:21] LABS: ADD MORPH? YES
[2016-04-03 06:23] LABS: PLATELET ESTIMATE ADEQUATE (ADEQ); TOXIC GRANULATION PRESENT
[2016-04-03] MEDS: cloZAPine 25 MG TAB PO SCH (08:23)
[2016-04-03] MEDS: ENOXAPARIN 40 MG/0.4 ML SYR SC SCH (08:23)
[2016-04-03] MEDS: buPROPion XL 150 MG TAB PO SCH (08:23)
[2016-04-03] MEDS: PALIPERIDONE 9 MG TAB.ER PO SCH (08:23)
[2016-04-03] MEDS: PANTOPRAZOLE SODIUM 40 MG TAB PO SCH (08:23)
[2016-04-03] MEDS: NICOTINE 14 MG/24 HR PATCH TD SCH ×2 (08:23→08:33)
[2016-04-03] MEDS ORDERED: cloZAPine 25 MG TAB PO SCH (09:33)
[2016-04-03] MEDS: CLOTRIMAZOLE 1% 15 GM CRTUBE TP SCH ×2 (10:02→21:16)
[2016-04-03] MEDS: ERTAPENEM 1 GM in NS 100 ML IV SCH (10:28)
--- NOTE | 2016-04-03 12:47 | SOAPPROG ---
SOAP Progress Note Assessment/Plan: Assessment: 1.) S/P Cardiac arrest 2.) Resp. failure 3.) ARF 4.) C. Diff colitis and diarrhea. His rectal tube is out. He is still having loose stools and is incontinent of stool. His nurse says that his stools are forming up a bit. 5.) RUE Melanoma, 07/2014. Recurrence in Axilla, 10/26. S/P two cycles of ipilimumab. No more ipilimumab is currently planned due to toxicity. 6.) Underlying psychiatric disorder - sedated but responds to voice today. Plan: ICU course noted. There is a suggestion that his stools may be slowing. I would continue RX for both C.Diff and for autoimmune colitis. Given the gravity of his situation, we don't anticipate continued Tx for Melanoma in the adjuvant setting. Subjective: sedated but answers to voice. Objective: Vital Signs Temp Pulse Resp BP Pulse Ox 37.1 C 89 22 H 114/68 94 04/03/16 04:00 04/03/16 09:00 04/03/16 08:00 04/03/16 09:00 04/03/16 09:00 Laboratory Results 04/03/16 05:00 04/03/16 05:00 04/01/16 04/02/16 04/03/16 23:59 23:59 23:59 Intake Total 3419.9 4513 1660 Output Total 2475 1675 1600 Balance 944.9 2838 60 PT 18.4 SEC (12.0-15.0) H 03/27/16 20:05 INR 1.53 (0.83-1.16) H 03/27/16 20:05 Physical Exam - Physical Exam General Appearance: other (sedated) Respiratory: lungs clear Cardiac/Chest: regular rate, rhythm Abdomen: normal bowel sounds, distended Neuro/Psych: other (sedated) ICD10 Worksheet Patient Problems: Problems Problem Status Onset C. difficile diarrhea Acute Cardiac arrest Acute Septic shock Acute Bacteremia Acute Hyponatremia Acute Schizophrenia Acute
--- NOTE | 2016-04-03 14:09 | HOSPPROG ---
Hospitalist Progress Note Assessment/Plan: * s/p Cardiac arrest - HACA protocol -brief PEA - suspect due to hypovolemia/sepsis * Pancolitis possibly seconday to Ipilimumab + Cdiff -PO Vanco + IV Flagyl - possibly autoimmune reaction to chemotherapy - on steroids * Probably stop Flagyl soon * possible pneumonia * continue Invanz - will finish 7 in 10 days * chest x-ray is about the same *recurrent fever * blood cultures negative * resolved with addition of Invanz * Acute respiratory failure s/p extubation * ARF - resolved * Melanoma - on chemo * Schizoaffective disorder * psych consult appreciated * on home dose of clozaril * DM II -hold metformin * Acute metabolic encephalopathy (improving) * Septic shock (resolved) * 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 Still having diarrhea. Objective: Vital Signs Temp Pulse Resp BP Pulse Ox 37.1 C 89 22 H 114/68 94 04/03/16 04:00 04/03/16 09:00 04/03/16 08:00 04/03/16 09:00 04/03/16 09:00 Laboratory Results 04/03/16 05:00 04/03/16 05:00 04/02/16 04/03/16 04/04/16 05:59 05:59 05:59 Intake Total 3613.9 4164 Output Total 2450 2450 Balance 1163.9 1714 PT 18.4 SEC (12.0-15.0) H 03/27/16 20:05 INR 1.53 (0.83-1.16) H 03/27/16 20:05 chest x-ray personally viewed interpreted, tele personally viewed interpreted normal sinus rhythm - Physical Exam Constitutional: no apparent distress, appears nourished, not in pain Eyes: anicteric sclera, EOMI Ears, Nose, Mouth, Throat: moist mucous membranes, hearing normal, ears appear normal Cardiovascular: regular rate and rhythym, no murmur, rub, or gallop Respiratory: no respiratory distress, no rales or rhonchi, clear to auscultation Gastrointestinal: normoactive bowel sounds, soft, non-tender abdomen, no palpable masses, distension Neurologic: AAOx3 Psychiatric: interacting appropriately, not anxious, not encephalopathic, thought process linear ICD10 Worksheet Patient Problems: Problems Problem Status Onset C. difficile diarrhea Acute Cardiac arrest Acute Septic shock Acute Bacteremia Acute Hyponatremia Acute Schizophrenia Acute
[2016-04-03] MEDS: methylPREDNISolone SOD SUCC 125 MG/2 ML VIAL IVP SCH (15:28)
--- NOTE | 2016-04-03 15:45 | PDINTPN ---
Sales And Marketing Coordinator Progress Note Assessment/Plan: Assessment/plan: 55 M admitted 03/26/16 with cardiac arrest- collapsed at nursing station in [place] and resuscitated quickly but intubated in ED. Found to have PNA, Cdiff and MAKENZIE; required pressors but has been improving. Extubated with sluggish MS and required Bipap until 03/31 AM. * s/p cardiac arrest/syncope with hypothermia protocol completed. Continues to improve. good prognosis * Respiratory failure with hypoxia 2/2 arrest and presumed aspiration PNA- Remains with minimal O2 requirement ( 2lpm) Continue ertapenem for now * Elevated right diaphragm- uncertain chronicity. follow * Schizoaffective d/o- on home meds- may be contributing to somnolence * Cdiff colitis with large stool output. Remains on po vanco and IV flagyl. Serum HCO3 stable. Discussed chemo with oncology yesterday and GI effects- started steroids. Rectal tube out. * Hx hyponatremia- now with Na 147 likely related to volume loss from stool. Watch closely. DDAVP not indicated. * agree with floor status 04/02/16 15:04 04/03/16 15:44 Subjective: feels OK, more alert but no complaints Objective: Vital Signs Temp Pulse Resp BP Pulse Ox 37.1 C 89 22 H 114/68 94 04/03/16 04:00 04/03/16 09:00 04/03/16 08:00 04/03/16 09:00 04/03/16 09:00 Laboratory Results 04/03/16 05:00 04/03/16 05:00 04/02/16 04/03/16 04/04/16 05:59 05:59 05:59 Intake Total 3613.9 4164 Output Total 2450 2450 Balance 1163.9 1714 PT 18.4 SEC (12.0-15.0) H 03/27/16 20:05 INR 1.53 (0.83-1.16) H 03/27/16 20:05 Physical Exam - Physical Exam General Appearance: alert, other (mildly confused) EENT: PERRL/EOMI Neck: full range of motion, supple Respiratory: lungs clear, normal breath sounds, No respiratory distress Cardiac/Chest: normal peripheral pulses, regular rate, rhythm, No edema Abdomen: normal bowel sounds, non-tender, soft, No distended Skin: normal color, warm/dry, No rash Lymphatic: no adenopathy Extremities: No pedal edema Neuro/Psych: alert, normal mood/affect ICD10 Worksheet Patient Problems: Problems Problem Status Onset C. difficile diarrhea Acute Cardiac arrest Acute Septic shock Acute Bacteremia Acute Hyponatremia Acute Schizophrenia Acute
[2016-04-03] MEDS: ESCITALOPRAM OXALATE 10 MG TAB TUBE SCH (21:14)
[2016-04-03] MEDS: ATORVASTATIN CALCIUM 10 MG TAB PO SCH (21:14)
[2016-04-03] MEDS ORDERED: cloZAPine 100 MG TAB PO SCH (21:30)
[2016-04-04] MEDS: INSULIN REGULAR HUMAN 100 UNIT/ML SC SCH ×4 (02:01→17:21)
[2016-04-04] MEDS: VANCOMYCIN 125 MG/2.5 ML UDL PO SCH ×4 (05:56→20:53)
[2016-04-04 06:15] LABS: ANION GAP 4 mEq/L (8-16); CALCIUM 8.6 mg/dL (8.5-10.4); CARBON DIOXIDE 26 mEq/l (22-31); CHLORIDE 108 mEq/L (97-110); CREATININE 0.7 mg/dL (0.7-1.3); GLOMERULAR FILTRATION RATE > 60; GLUCOSE 143 mg/dL (70-100); POTASSIUM 4.5 mEq/L (3.5-5.2); SODIUM 138 mEq/L (134-144)
[2016-04-04 06:17] LABS: % IMMATURE GRANULYOCYTES 1.1 % (0.0-1.1); ABSOLUTE IMMATURE GRANULOCYTES 0.09 10^3/uL (0.00-0.10); ADD DIFF? NO; ADD MORPH? NO; ADD SCAN? YES; ATYPICAL LYMPHOCYTE FLAG 280 (0-99); FRAGMENT RBC FLAG 0 (0-99); HEMATOCRIT 39.4 % (40.0-51.0); HEMOGLOBIN 12.2 g/dL (13.7-17.5); LEFT SHIFT FLG 10 (0-99); LIPEMIA HEMOLYSIS FLAG 80 (0-99); MEAN CELL HEMOGLOBIN 28.3 pg (27.9-34.1); MEAN CELL VOLUME 91.4 fL (81.5-99.8); MEAN PLATELET VOLUME 9.4 fL (8.7-11.7); PLATELET CLUMPS FLAG 0 (0-99); PLATELET COUNT 131 10^3/uL (150-400); RED BLOOD CELL COUNT 4.31 10^6/uL (4.40-6.38); RED CELL DISTRIBUTION WIDTH 14.7 % (11.5-15.2)
[2016-04-04 06:52] LABS: SCAN NEGATIVE
[2016-04-04] MEDS ORDERED: cloZAPine 100 MG TAB PO SCH (07:52)
--- NOTE | 2016-04-04 09:24 | SOAPPROG ---
SOAP Progress Note Assessment/Plan: Assessment: 1.) S/P Cardiac arrest 2.) Resp. failure - improved 3.) ARF 4.) C. Diff colitis and diarrhea. According to his nurse, he had 4-5 stools overnight. 5.) RUE Melanoma, 07/2014. Recurrence in Axilla, 10/26. S/P two cycles of ipilimumab. No more ipilimumab is currently planned due to toxicity. 6.) Underlying psychiatric disorder - sedated but responds to voice today. 7.) No rash noted today Plan: He is now out of the ICU and on Med/Surg There is a suggestion that his stools may be slowing. I would continue RX for both C.Diff and for autoimmune colitis. Given the gravity of his situation, we don't anticipate continued Tx for Melanoma in the adjuvant setting. Subjective: Wakes up to voice. Denies any pain. Objective: Vital Signs Temp Pulse Resp BP Pulse Ox 36.6 C 75 16 133/81 H 94 04/04/16 07:04 04/04/16 07:04 04/04/16 07:04 04/04/16 07:04 04/04/16 07:04 Laboratory Results 04/04/16 05:35 04/04/16 05:35 04/02/16 04/03/16 04/04/16 23:59 23:59 23:59 Intake Total 4513 1660 850 Output Total 1675 1600 Balance 2838 60 850 PT 18.4 SEC (12.0-15.0) H 03/27/16 20:05 INR 1.53 (0.83-1.16) H 03/27/16 20:05 Physical Exam - Physical Exam General Appearance: obtunded Respiratory: No crackles, No rales Cardiac/Chest: regular rate, rhythm Abdomen: normal bowel sounds, distended Skin: No rash ICD10 Worksheet Patient Problems: Problems Problem Status Onset C. difficile diarrhea Acute Cardiac arrest Acute Septic shock Acute Bacteremia Acute Hyponatremia Acute Schizophrenia Acute
[2016-04-04] MEDS: PANTOPRAZOLE SODIUM 40 MG TAB PO SCH (09:40)
[2016-04-04] MEDS: buPROPion XL 150 MG TAB PO SCH (09:40)
[2016-04-04] MEDS: PALIPERIDONE 3 MG TAB.ER PO SCH ×2 (09:41→21:00)
[2016-04-04] MEDS: ERTAPENEM 1 GM in NS 100 ML IV SCH (09:42)
[2016-04-04] MEDS: ENOXAPARIN 40 MG/0.4 ML SYR SC SCH (09:43)
[2016-04-04] MEDS: cloZAPine 25 MG TAB PO SCH ×2 (09:44→20:56)
[2016-04-04] MEDS: NICOTINE 14 MG/24 HR PATCH TD SCH (09:49)
[2016-04-04] MEDS: CLOTRIMAZOLE 1% 15 GM CRTUBE TP SCH ×2 (09:52→20:56)
--- NOTE | 2016-04-04 14:22 | HOSPPROG ---
Hospitalist Progress Note Assessment/Plan: * s/p Cardiac arrest - HACA protocol -brief PEA - suspect due to hypovolemia/sepsis * Pancolitis possibly seconday to Ipilimumab + Cdiff -PO Vanco - DC Flagyl today - possibly autoimmune reaction to chemotherapy - changed to oral steroids * possible pneumonia * continue Invanz - will finish 7 in 10 days * chest x-ray is about the same *recurrent fever * blood cultures negative * resolved with addition of Invanz * Acute respiratory failure s/p extubation * ARF - resolved * Melanoma - on chemo * Schizoaffective disorder * psych consult appreciated * on home dose of clozaril * DM II -hold metformin * Acute metabolic encephalopathy (improving) * Septic shock (resolved) * 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 Objective: Vital Signs Temp Pulse Resp BP Pulse Ox 36.6 C 75 16 133/81 H 94 04/04/16 07:04 04/04/16 07:04 04/04/16 07:04 04/04/16 07:04 04/04/16 07:04 Laboratory Results 04/04/16 05:35 04/04/16 05:35 04/03/16 04/04/16 04/05/16 05:59 05:59 05:59 Intake Total 4164 850 Output Total 2450 Balance 1714 850 PT 18.4 SEC (12.0-15.0) H 03/27/16 20:05 INR 1.53 (0.83-1.16) H 03/27/16 20:05 - Physical Exam Constitutional: no apparent distress, appears nourished, not in pain Eyes: other ( Left eye injection which she states is chronic) Ears, Nose, Mouth, Throat: moist mucous membranes, hearing normal, ears appear normal, no oral mucosal ulcers Cardiovascular: regular rate and rhythym, no murmur, rub, or gallop, systolic murmur Respiratory: no respiratory distress, no rales or rhonchi, clear to auscultation Gastrointestinal: normoactive bowel sounds, soft, non-tender abdomen, no palpable masses Psychiatric: interacting appropriately, not anxious, not encephalopathic, thought process linear ICD10 Worksheet Patient Problems: Problems Problem Status Onset C. difficile diarrhea Acute Cardiac arrest Acute Septic shock Acute Bacteremia Acute Hyponatremia Acute Schizophrenia Acute
[2016-04-04] MEDS: predniSONE 20 MG TAB PO SCH (17:28)
[2016-04-04] MEDS: ESCITALOPRAM OXALATE 10 MG TAB TUBE SCH (20:54)
[2016-04-04] MEDS: ATORVASTATIN CALCIUM 10 MG TAB PO SCH (20:55)
[2016-04-04] MEDS: HALOPERIDOL LACT 5 MG/ML INJ IVP PRN (23:44)
[2016-04-04] MEDS: ACETAMINOPHEN 325 MG TAB PO PRN (23:44)
[2016-04-05] MEDS: PETROLAT,WHT/MIN OIL/SOD CHL 3.5 GM OPHT.OINT EACHEYE PRN ×2 (00:16→13:49)
[2016-04-05] MEDS: INSULIN REGULAR HUMAN 100 UNIT/ML SC SCH ×5 (00:47→17:10)
[2016-04-05] MEDS: VANCOMYCIN 125 MG/2.5 ML UDL PO SCH ×4 (05:10→20:19)
[2016-04-05 06:04] LABS: % IMMATURE GRANULYOCYTES 0.9 % (0.0-1.1); ABSOLUTE IMMATURE GRANULOCYTES 0.09 10^3/uL (0.00-0.10); ADD DIFF? NO; ADD MORPH? NO; ADD SCAN? YES; FRAGMENT RBC FLAG 0 (0-99); HEMATOCRIT 34.2 % (40.0-51.0); HEMOGLOBIN 10.9 g/dL (13.7-17.5); LEFT SHIFT FLG 0 (0-99); LIPEMIA HEMOLYSIS FLAG 80 (0-99); MEAN CELL HEMOGLOBIN 28.7 pg (27.9-34.1); MEAN CELL HEMOGLOBIN CONCENTR. 31.9 g/dL (32.4-36.7); MEAN PLATELET VOLUME 9.1 fL (8.7-11.7); PLATELET CLUMPS FLAG 0 (0-99); PLATELET COUNT 143 10^3/uL (150-400); RED CELL DISTRIBUTION WIDTH 14.5 % (11.5-15.2)
[2016-04-05 06:15] LABS: ATYPICAL LYMPHOCYTE FLAG 100 (0-99)
[2016-04-05 06:17] LABS: ANION GAP 4 mEq/L (8-16); CALCIUM 8.6 mg/dL (8.5-10.4); CARBON DIOXIDE 25 mEq/l (22-31); CHLORIDE 108 mEq/L (97-110); CREATININE 0.7 mg/dL (0.7-1.3); GLOMERULAR FILTRATION RATE > 60; GLUCOSE 159 mg/dL (70-100); POTASSIUM 4.5 mEq/L (3.5-5.2); SODIUM 137 mEq/L (134-144)
[2016-04-05 07:15] LABS: SCAN POSITIVE
[2016-04-05 07:24] LABS: PLATELET ESTIMATE DECREASED (ADEQ); POLYCHROMASIA 1+
[2016-04-05] MEDS: ACETAMINOPHEN 325 MG TAB PO PRN ×2 (08:12→20:21)
[2016-04-05] MEDS ORDERED: PALIPERIDONE 3 MG TAB.ER PO SCH ×2 (09:00→21:00)
[2016-04-05] MEDS: ERTAPENEM 1 GM in NS 100 ML IV SCH (09:15)
[2016-04-05] MEDS: ENOXAPARIN 40 MG/0.4 ML SYR SC SCH (09:23)
[2016-04-05] MEDS: PALIPERIDONE 3 MG TAB.ER PO SCH ×2 (09:25→20:21)
[2016-04-05] MEDS: buPROPion XL 150 MG TAB PO SCH (09:25)
[2016-04-05] MEDS: PANTOPRAZOLE SODIUM 40 MG TAB PO SCH (09:25)
[2016-04-05] MEDS: predniSONE 20 MG TAB PO SCH ×2 (09:25→17:11)
[2016-04-05] MEDS: NICOTINE 14 MG/24 HR PATCH TD SCH (09:26)
--- NOTE | 2016-04-05 13:43 | SOAPPROG ---
SOAP Progress Note Assessment/Plan: Assessment: 1.) S/P Cardiac arrest 2.) Resp. failure - improved 3.) ARF 4.) C. Diff colitis and diarrhea. Stool frequency is decreasing. 5.) RUE Melanoma, 07/2014. Recurrence in Axilla, 10/26. S/P two cycles of ipilimumab. No more ipilimumab is currently planned due to toxicity. 6.) Underlying psychiatric disorder - he is much more alert and conversant today. He is asking appropriate questions. He is having more hallucinations. He is not sure if they are predominantly auditory or visual or both. He has a long history of hallucinations related to his schizoaffective disorder. 7.) No rash noted today Clinically he is MUCH better as far as his mental state is concerned. We discussed that we are not planning on any additional adjuvant therapy for his melanoma at this time. Plan: Continue med/surg care Stool frequency seems to be slowing. I agree with dropping metronidazole Will follow with you. Subjective: Alert, asking questions, smiling Objective: Vital Signs Temp Pulse Resp BP Pulse Ox 97.7 C H 73 16 131/75 H 91 L 04/05/16 07:26 04/05/16 07:26 04/05/16 07:26 04/05/16 07:26 04/05/16 07:26 Microbiology 03/30/16 12:45 Blood Culture - Final Blood 03/30/16 12:30 Blood Culture - Final Blood Laboratory Results 04/05/16 05:35 04/05/16 05:35 04/03/16 04/04/16 04/05/16 23:59 23:59 23:59 Intake Total 1660 5050 550 Output Total 1600 Balance 60 5050 550 PT 18.4 SEC (12.0-15.0) H 03/27/16 20:05 INR 1.53 (0.83-1.16) H 03/27/16 20:05 Physical Exam - Physical Exam General Appearance: alert, no apparent distress Skin: pallor ICD10 Worksheet Patient Problems: Problems Problem Status Onset C. difficile diarrhea Acute Cardiac arrest Acute Septic shock Acute Bacteremia Acute Hyponatremia Acute Schizophrenia Acute
[2016-04-05] MEDS: CLOTRIMAZOLE 1% 15 GM CRTUBE TP SCH ×2 (13:47→20:24)
--- NOTE | 2016-04-05 16:33 | HOSPPROG ---
Hospitalist Progress Note Assessment/Plan: 55-year-old with recent diagnosis of melanoma status post chemotherapy presented with cardiac arrest * s/p Cardiac arrest - HACA protocol -brief PEA - suspect due to hypovolemia/sepsis * Pancolitis possibly seconday to Ipilimumab + Cdiff -PO Vanco - Flagyl DC yesterday - possibly autoimmune reaction to chemotherapy - changed to oral steroids * possible pneumonia * discontinue Invanz. 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 Perhaps 1 or 2 more days Subjective: no new complaints. Objective: Vital Signs Temp Pulse Resp BP Pulse Ox 97.7 C H 73 16 131/75 H 91 L 04/05/16 07:26 04/05/16 07:26 04/05/16 07:26 04/05/16 07:26 04/05/16 07:26 Microbiology 03/30/16 12:45 Blood Culture - Final Blood 03/30/16 12:30 Blood Culture - Final Blood Laboratory Results 04/05/16 05:35 04/05/16 05:35 04/04/16 04/05/16 04/06/16 05:59 05:59 05:59 Intake Total 850 4750 Balance 850 4750 PT 18.4 SEC (12.0-15.0) H 03/27/16 20:05 INR 1.53 (0.83-1.16) H 03/27/16 20:05 - Physical Exam Constitutional: no apparent distress, appears nourished, not in pain Eyes: scleral injection ( Left eye which is old) Cardiovascular: regular rate and rhythym, no murmur, rub, or gallop Respiratory: no respiratory distress, no rales or rhonchi, clear to auscultation Gastrointestinal: normoactive bowel sounds, soft, non-tender abdomen, no palpable masses Skin: warm Neurologic: AAOx3 Psychiatric: interacting appropriately, not anxious, not encephalopathic, thought process linear ICD10 Worksheet Patient Problems: Problems Problem Status Onset C. difficile diarrhea Acute Cardiac arrest Acute Septic shock Acute Bacteremia Acute Hyponatremia Acute Schizophrenia Acute
[2016-04-05] MEDS: cloZAPine 100 MG TAB PO SCH (20:20)
[2016-04-05] MEDS: cloZAPine 25 MG TAB PO SCH (20:20)
[2016-04-05] MEDS: ATORVASTATIN CALCIUM 10 MG TAB PO SCH (20:21)
[2016-04-05] MEDS: ESCITALOPRAM OXALATE 10 MG TAB TUBE SCH (20:22)
[2016-04-06] MEDS: VANCOMYCIN 125 MG/2.5 ML UDL PO SCH ×4 (04:55→20:35)
[2016-04-06 05:28] LABS: % IMMATURE GRANULYOCYTES 0.6 % (0.0-1.1); ABSOLUTE IMMATURE GRANULOCYTES 0.08 10^3/uL (0.00-0.10); ADD DIFF? NO; ADD MORPH? NO; ADD SCAN? NO; ATYPICAL LYMPHOCYTE FLAG 60 (0-99); FRAGMENT RBC FLAG 0 (0-99); HEMATOCRIT 33.8 % (40.0-51.0); LEFT SHIFT FLG 0 (0-99); LIPEMIA HEMOLYSIS FLAG 80 (0-99); MEAN CELL HEMOGLOBIN 28.9 pg (27.9-34.1); MEAN CELL HEMOGLOBIN CONCENTR. 32.5 g/dL (32.4-36.7); MEAN CELL VOLUME 88.7 fL (81.5-99.8); MEAN PLATELET VOLUME 9.3 fL (8.7-11.7); PLATELET CLUMPS FLAG 0 (0-99); PLATELET COUNT 191 10^3/uL (150-400); RED BLOOD CELL COUNT 3.81 10^6/uL (4.40-6.38); RED CELL DISTRIBUTION WIDTH 14.3 % (11.5-15.2)
[2016-04-06 05:53] LABS: ANION GAP 4 mEq/L (8-16); CALCIUM 8.7 mg/dL (8.5-10.4); CARBON DIOXIDE 25 mEq/l (22-31); CHLORIDE 107 mEq/L (97-110); CREATININE 0.6 mg/dL (0.7-1.3); GLOMERULAR FILTRATION RATE > 60; GLUCOSE 198 mg/dL (70-100); POTASSIUM 4.7 mEq/L (3.5-5.2); SODIUM 136 mEq/L (134-144)
[2016-04-06] MEDS: INSULIN REGULAR, HUMAN 100 UNIT/1 ML VIAL STANDARD SC SCH ×4 (08:15→22:08)
[2016-04-06] MEDS: PALIPERIDONE 3 MG TAB.ER PO SCH ×2 (08:57→20:34)
[2016-04-06] MEDS: PANTOPRAZOLE SODIUM 40 MG TAB PO SCH (08:58)
[2016-04-06] MEDS: NICOTINE 14 MG/24 HR PATCH TD SCH (08:58)
[2016-04-06] MEDS: predniSONE 20 MG TAB PO SCH (08:58)
[2016-04-06] MEDS: buPROPion XL 150 MG TAB PO SCH (08:58)
[2016-04-06] MEDS: ENOXAPARIN 40 MG/0.4 ML SYR SC SCH (08:58)
[2016-04-06] MEDS: CLOTRIMAZOLE 1% 15 GM CRTUBE TP SCH ×2 (08:59→20:36)
[2016-04-06] MEDS ORDERED: cloZAPine 100 MG TAB PO SCH ×2 (09:00)
[2016-04-06] MEDS ORDERED: cloZAPine 25 MG TAB PO SCH (10:13)
--- NOTE | 2016-04-06 10:17 | HOSPPROG ---
Hospitalist Progress Note Assessment/Plan: Patient is a 55-year-old gentleman with a history of schizoaffective disorder, malignant melanoma, hyponatremia who collapsed at the nursing station on March 26 at [place]. The patient had no pulse /CPR was started. He was transferred to the emergency room where he was intubated. He was treated with the HACA protocol. today is my 1st encounter with the patient. Chart reviewed. * s/p Cardiac arrest - brief PEA - suspect due to hypovolemia/sepsis * Pancolitis possibly secondary to Ipilimumab + Cdiff * PO Vanco/Flagyl dc * possibly autoimmune reaction to chemotherapy * on oral steroids (was on bid/ decreased to daily 04/06) * possible pneumonia * Resolved * had received treatment w Invanz * chest xray yesterday shows improvement *recurrent fever * blood cultures negative * resolve * Acute respiratory failure s/p extubation * still on oxygen, but improving * ARF - resolved * RUE Melanoma /recurrence in the axilla- s/p 2 cycles of Ipilinumab * will get no more of this due to toxicity * Schizoaffective disorder * psych consult / appreciated * on home dose of Clozaril + Invega 9 mg daily * DM II -hold metformin * Acute metabolic encephalopathy * resolved * Septic shock (resolved) * 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 Hopefully in next 1-2 days. Subjective: Zach said he is feeling short of breath and is tired. Objective: Vital Signs Temp Pulse Resp BP Pulse Ox 36.4 C 80 16 140/88 H 91 L 04/06/16 07:59 04/06/16 07:59 04/06/16 07:59 04/06/16 07:59 04/06/16 07:59 Microbiology 03/30/16 12:45 Blood Culture - Final Blood 03/30/16 12:30 Blood Culture - Final Blood Laboratory Results 04/06/16 04:55 04/06/16 04:55 04/05/16 04/06/16 04/07/16 05:59 05:59 05:59 Intake Total 4750 Balance 4750 PT 18.4 SEC (12.0-15.0) H 03/27/16 20:05 INR 1.53 (0.83-1.16) H 03/27/16 20:05 - Physical Exam Constitutional: appears nourished, chronically ill appearing Eyes: PERRL, other (redness to sclera in left eye) Ears, Nose, Mouth, Throat: hearing normal Cardiovascular: regular rate and rhythym Respiratory: no respiratory distress, clear to auscultation, reduced air movement Gastrointestinal: normoactive bowel sounds Skin: warm Musculoskeletal: generalized weakness Neurologic: AAOx3 Psychiatric: interacting appropriately, not anxious ICD10 Worksheet Patient Problems: Problems Problem Status Onset C. difficile diarrhea Acute Cardiac arrest Acute Septic shock Acute Bacteremia Acute Hyponatremia Acute Schizophrenia Acute
--- NOTE | 2016-04-06 12:08 | SOAPPROG ---
SOAP Progress Note Assessment/Plan: Assessment: 1.) S/P Cardiac arrest 2.) Resp. failure - improved 3.) ARF 4.) C. Diff colitis and diarrhea. Stool frequency is decreasing. 5.) RUE Melanoma, 07/2014. Recurrence in Axilla, 10/26. S/P two cycles of ipilimumab. No more ipilimumab is currently planned due to toxicity. 6.) Underlying psychiatric disorder - he is much more alert and conversant today. He is asking appropriate questions. He is having more hallucinations. He is not sure if they are predominantly auditory or visual or both. He has a long history of hallucinations related to his schizoaffective disorder. 7.) No rash noted today Clinically he is MUCH better as far as his mental state is concerned. We discussed that we are not planning on any additional adjuvant therapy for his melanoma at this time. Plan:Continue prednisone at 40 mg daily Continue med/surg care Stool frequency seems to be slowing. Off metronidazole Subjective: Feels ok Objective: Vital Signs Temp Pulse Resp BP Pulse Ox 97.6 F 80 16 140/88 H 91 L 04/06/16 07:59 04/06/16 07:59 04/06/16 07:59 04/06/16 07:59 04/06/16 07:59 Microbiology 03/30/16 12:45 Blood Culture - Final Blood 03/30/16 12:30 Blood Culture - Final Blood Laboratory Results 04/06/16 04:55 04/06/16 04:55 04/05/16 04/06/16 04/07/16 05:59 05:59 05:59 Intake Total 4750 Balance 4750 PT 18.4 SEC (12.0-15.0) H 03/27/16 20:05 INR 1.53 (0.83-1.16) H 03/27/16 20:05 ICD10 Worksheet Patient Problems: Problems Problem Status Onset C. difficile diarrhea Acute Cardiac arrest Acute Septic shock Acute Bacteremia Acute Hyponatremia Acute Schizophrenia Acute
[2016-04-06] MEDS: ESCITALOPRAM OXALATE 10 MG TAB TUBE SCH (20:34)
[2016-04-06] MEDS: ATORVASTATIN CALCIUM 10 MG TAB PO SCH (20:34)
[2016-04-06] MEDS: cloZAPine 100 MG TAB PO SCH (20:35)
[2016-04-06] MEDS: ACETAMINOPHEN 325 MG TAB PO PRN (20:35)
[2016-04-06] MEDS: cloZAPine 25 MG TAB PO SCH (20:35)
--- NOTE | 2016-04-07 05:39 | HOSPPROG ---
Hospitalist Progress Note Assessment/Plan: CROSS COVER EVENT NOTE I was called by RN at 530am because patient was found to have had a large bloody bowel movement, with bright red blood and significant blood clots also present. On my evaluation, patient was complaining of mild abdominal discomfort , but BM was painless. He denies any previous history of GI bleeding and also reports he's never had a colonoscopy in his life. VS: 124/86 HR 94 O2 sat 93% Gen: NAD CV: RRR Resp: CTA Abd: soft, nondistended, mild nonspecific tenderness Ext: no edema, peripheral pulses 2+ A/P: Pt is 55/M with a history of schizoaffective disorder, malignant melanoma, hyponatremia who was admitted on 03/26 s/p PEA cardiac arrest. He is now s/p HACA protocol, was found to have a pancolitis secondary to c diff, currently being treated. Diarrhea had been improving, however, this morning patient has had a large volume of hematochezia, appears consistent with acute lower GI bleed. He remains hemodynamically stable, is not tachycardic and is mentating at his baseline. Will check stat labs, including CBC, PT/PTT, BMP, T&S. Patient currently with adequate IV access. Will make NPO and consider GI vs general surgery consult if recurrent episodes of bleeding. Objective: Vital Signs Temp Pulse Resp BP Pulse Ox 36.7 C 80 16 138/83 H 95 04/06/16 21:53 04/06/16 21:53 04/06/16 21:53 04/06/16 21:53 04/06/16 21:53 Laboratory Results 04/06/16 04:55 04/06/16 04:55 04/05/16 04/06/16 04/07/16 05:59 05:59 05:59 Intake Total 4750 1600 Balance 4750 1600 PT 18.4 SEC (12.0-15.0) H 03/27/16 20:05 INR 1.53 (0.83-1.16) H 03/27/16 20:05 ICD10 Worksheet Patient Problems: Problems Problem Status Onset C. difficile diarrhea Acute Hyponatremia Acute Bacteremia Acute Schizophrenia Acute Cardiac arrest Acute Septic shock Acute
[2016-04-07] MEDS: VANCOMYCIN 125 MG/2.5 ML UDL PO SCH ×4 (05:43→20:57)
[2016-04-07 06:01] LABS: HEMATOCRIT 31.7 % (40.0-51.0); HEMOGLOBIN 10.4 g/dL (13.7-17.5); MEAN CELL HEMOGLOBIN 29.1 pg (27.9-34.1); MEAN CELL HEMOGLOBIN CONCENTR. 32.8 g/dL (32.4-36.7); MEAN CELL VOLUME 88.8 fL (81.5-99.8); RED BLOOD CELL COUNT 3.57 10^6/uL (4.40-6.38); RED CELL DISTRIBUTION WIDTH 14.2 % (11.5-15.2)
[2016-04-07 06:11] LABS: ANION GAP 2 mEq/L (8-16); CARBON DIOXIDE 27 mEq/l (22-31); CHLORIDE 106 mEq/L (97-110); CREATININE 0.7 mg/dL (0.7-1.3); GLOMERULAR FILTRATION RATE > 60; GLUCOSE 155 mg/dL (70-100); INR 1.21 (0.83-1.16); POTASSIUM 4.9 mEq/L (3.5-5.2); PROTIME(PATIENT) 15.3 SEC (12.0-15.0); SODIUM 135 mEq/L (134-144)
[2016-04-07] MEDS: INSULIN REGULAR, HUMAN 100 UNIT/1 ML VIAL STANDARD SC SCH ×4 (07:58→22:11)
[2016-04-07] MEDS: buPROPion XL 150 MG TAB PO SCH (08:59)
[2016-04-07] MEDS: PANTOPRAZOLE SODIUM 40 MG TAB PO SCH (08:59)
[2016-04-07] MEDS ORDERED: predniSONE 20 MG TAB PO SCH (09:00)
[2016-04-07] MEDS: PALIPERIDONE 3 MG TAB.ER PO SCH ×2 (09:00→20:58)
[2016-04-07] MEDS: cloZAPine 25 MG TAB PO SCH ×2 (09:01→21:00)
[2016-04-07] MEDS: PETROLAT,WHT/MIN OIL/SOD CHL 3.5 GM OPHT.OINT EACHEYE PRN (09:02)
[2016-04-07] MEDS: ENOXAPARIN 40 MG/0.4 ML SYR SC SCH (09:03)
[2016-04-07] MEDS: NICOTINE 14 MG/24 HR PATCH TD SCH (09:04)
[2016-04-07] MEDS: CLOTRIMAZOLE 1% 15 GM CRTUBE TP SCH ×2 (09:04→21:00)
--- NOTE | 2016-04-07 09:04 | HOSPPROG ---
Hospitalist Progress Note Assessment/Plan: Patient is a 55-year-old gentleman with a history of schizoaffective disorder, malignant melanoma, hyponatremia who collapsed at the nursing station on March 26 at [facility]. The patient had no pulse /CPR was started. He was transferred to the emergency room where he was intubated. He was treated with the HACA protocol. * s/p Cardiac arrest - brief PEA - suspect due to hypovolemia/sepsis * Pancolitis possibly secondary to Ipilimumab + Cdiff * PO Vanco/Flagyl dc * possibly autoimmune reaction to chemotherapy * on oral steroids (was on bid/ decreased to daily 04/06) *hematochezia this morning * Was evaluated by hospitalist earlier this morning/ she updated me on plan of care * labs overall stable * patient feeling well/ abdominal exam benign/ have asked nursing staff to monitor his stools closely and if this re-occurs, will ask GI to see * h/h close to baseline * will recheck h/h at noon * possible pneumonia * Resolved * had received treatment w Invanz * chest xray showed improvement *recurrent fever * blood cultures negative * resolve * Acute respiratory failure s/p extubation * still on oxygen, but improving * still on 3 liters * ARF - resolved * RUE Melanoma /recurrence in the axilla- s/p 2 cycles of Ipilinumab * will get no more of this due to toxicity * Schizoaffective disorder * psych consult / appreciated * on Clozaril + Invega 9 mg daily * DM II -hold metformin * Acute metabolic encephalopathy * resolved * Septic shock (resolved) * 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 Subjective: Zach is hungry and wants to eat. Objective: Vital Signs Temp Pulse Resp BP Pulse Ox 36.6 C 80 14 137/80 H 96 04/07/16 08:30 04/07/16 08:30 04/07/16 08:30 04/07/16 08:30 04/07/16 08:30 Laboratory Results 04/07/16 05:45 04/07/16 05:45 04/06/16 04/07/16 04/08/16 05:59 05:59 05:59 Intake Total 1600 Balance 1600 PT 15.3 SEC (12.0-15.0) H 04/07/16 05:45 INR 1.21 (0.83-1.16) H 04/07/16 05:45 - Physical Exam Constitutional: no apparent distress, appears nourished Eyes: PERRL Ears, Nose, Mouth, Throat: hearing normal Cardiovascular: regular rate and rhythym Respiratory: no respiratory distress, reduced air movement Gastrointestinal: normoactive bowel sounds, soft, non-tender abdomen Skin: warm, No normal color (pale) Musculoskeletal: generalized weakness Neurologic: AAOx3 Psychiatric: interacting appropriately, flat affect ICD10 Worksheet Patient Problems: Problems Problem Status Onset C. difficile diarrhea Acute Cardiac arrest Acute Septic shock Acute Bacteremia Acute Hyponatremia Acute Schizophrenia Acute
--- NOTE | 2016-04-07 11:30 | SOAPPROG ---
SOAP Progress Note Assessment/Plan: Assessment: 1.) S/P Cardiac arrest 2.) Resp. failure - improved 3.) ARF 4.) C. Diff colitis and diarrhea. Stool frequency is decreasing, report of hematochezia today 5.) RUE Melanoma, 07/2014. Recurrence in Axilla, 10/26. S/P two cycles of ipilimumab. No more ipilimumab is currently planned due to toxicity. 6.) Underlying psychiatric disorder - he is much more alert and conversant today. is schizoaffective disorder. 7.) No rash noted today Plan:Continue prednisone at 40 mg daily, discussed with Khushboo Leone, follow hematochezia for now, hgb fairly stable 04/07/16 11:27 04/07/16 11:31 Subjective: Awake, alert Objective: Vital Signs Temp Pulse Resp BP Pulse Ox 97.8 F 80 14 137/80 H 96 04/07/16 08:30 04/07/16 08:30 04/07/16 08:30 04/07/16 08:30 04/07/16 08:30 Laboratory Results 04/07/16 05:45 04/07/16 05:45 04/06/16 04/07/16 04/08/16 05:59 05:59 05:59 Intake Total 1600 Balance 1600 PT 15.3 SEC (12.0-15.0) H 04/07/16 05:45 INR 1.21 (0.83-1.16) H 04/07/16 05:45 ICD10 Worksheet Patient Problems: Problems Problem Status Onset C. difficile diarrhea Acute Cardiac arrest Acute Septic shock Acute Bacteremia Acute Hyponatremia Acute Schizophrenia Acute
[2016-04-07 12:50] LABS: HEMATOCRIT 29.3 % (40.0-51.0); HEMOGLOBIN 9.6 g/dL (13.7-17.5)
[2016-04-07] MEDS ORDERED: GOLYTELY 4000 ML BTL PO ONE (14:58)
[2016-04-07] MEDS: ESCITALOPRAM OXALATE 10 MG TAB TUBE SCH (20:56)
[2016-04-07] MEDS: ACETAMINOPHEN 325 MG TAB PO PRN (20:58)
[2016-04-07] MEDS: ATORVASTATIN CALCIUM 10 MG TAB PO SCH (20:59)
[2016-04-07] MEDS: cloZAPine 100 MG TAB PO SCH (20:59)
--- NOTE | 2016-04-07 22:22 | GCON ---
GASTROENTEROLOGY CONSULTATION DATE OF CONSULTATION: 04/07/2016 REASON FOR CONSULTATION: Bright red blood per rectum. HISTORY OF PRESENT ILLNESS: The patient is a 55-year-old gentleman with schizoaffective disorder who was admitted to the hospital on 03/26/16 with cardiac arrest. He is a resident of [facility] due to his psychiatric disorder. He does have a history of stage IIB melanoma of the right upper extremity which was diagnosed in July of 2014 with recurrence in October 2015 with axillary mami resection. He had undergone 2 cycles of adjuvant ipilimumab and developed diarrhea, dehydration, collapsed at [facility], and was admitted with cardiac arrest, which responded to CPR. The patient's hospitalization was complicated by pancolitis thought secondary to his chemotherapy and diarrhea as well as the development of C difficile colitis. He is now on vancomycin therapy for the same. I was asked to see the patient today by AMA Robertson for evaluation of progressively more severe hematochezia in the setting of above. On discussion with the father, who is his power of patent prosecution attorney, the patient has had no prior history of colonoscopy to his knowledge nor does the patient recall having a colonoscopy in the past. MEDICATIONS: At present is Lipitor 10 mg p.o. daily, Wellbutrin XL 300 mg p.o. daily, clozapine 200 mg p.o. q.a.m. and 250 mg p.o. q.h.s., desmopressin acetate 0.2 mg p.o. q.h.s., Lovenox 40 mg subcu daily, Lexapro 20 mg p.o. q.h.s. , Humulin R sliding scale, NicoDerm CQ 14 mg transderm patch daily, paliperidone 5 mg p.o. b.i.d., Protonix 40 mg p.o. daily, prednisone 40 mg daily , vancomycin 125 mg p.o. q.i.d., and albuterol inhaler p.r.n. ALLERGIES: The patient is allergic to lorazepam. PAST MEDICAL HISTORY: Significant for type 2 diabetes mellitus, gastroesophageal reflux disease, schizoaffective disorder, history of hyponatremia, history of malignant melanoma, history of DVT, and osteoporosis. SOCIAL HISTORY: He is developmentally disabled and lives at [facility]. FAMILY HISTORY: Negative for GI malignancies or inflammatory bowel disease. REVIEW OF SYSTEMS: Negative for a comprehensive 12-point review of system other than the rectal bleeding as noted above. PHYSICAL EXAMINATION: VITAL SIGNS: On my examination today, his temperature is 36.5, his pulse is 97 AND regular, blood pressure is 148/82, respiratory rate is 18, O2 saturation 94% on 3 L per nasal cannula. INTEGUMENT: Clear. HEENT: Head is atraumatic, normocephalic. Pupils equally round, reactive to light. EOMs intact. Sclerae nonicteric. Nares patent. Mucous membranes moist. Mallampati is II. NECK: Supple. Trachea was midline. LYMPHATICS: no palpable cervical adenopathy. PULMONARY: Clear to percussion and auscultation. CARDIOVASCULAR: Regular rhythm and rate. Normal S1, S2 without murmur. Peripheral pulses strong bilaterally. No pedal edema. GASTROINTESTINAL: Positive bowel sounds, distended, non-tender without mass or rebound.NEURO: Patient was alert, was oriented x3. There are no focal neurologic deficits. EXTREMITIES: Without deformity. RECTAL: Exam deferred though there was blood staining of the anal orifice. LABORATORY: Hemoglobin yesterday was 11.0. Hemoglobin this morning 10.4. Hemoglobin at noon 9.6. Hematocrit yesterday at 33.8. Hematocrit this afternoon 29.3. White count 11.22, platelets 210,000. Prothrombin time 15.3, INR 1.21. Electrolytes normal. Sodium was 135, potassium 4.9, chloride 106, CO2 of 27, BUN 23, creatinine 0.7, calcium is 9.0. IMPRESSION: 1. Lower gastrointestinal bleed in a gentleman with a history of chemotherapy induced pancolitis as well as Clostridium difficile colitis without a history of colonoscopic evaluation in the past, rule out other etiology for the patient' s hematochezia. 2. Posthemorrhagic anemia. 3. Clostridium difficile colitis. 4. Chemotherapy-induced pancolitis. 5. Schizoaffective disorder. 6. Type 2 diabetes mellitus. RECOMMENDATIONS: 1. Colyte prep. 2. Rectal tube for hygiene. 3. Clear liquid diet. 4. N.p.o. after midnight. 5. Total colonoscopy tomorrow with propofol anesthesia due to the patient's schizoaffective disorder and multiple medical problems (patient is at higher risk for complication with this procedure due to his multiple medical problems). Copy requested to: AMA Mayo /[id number]/MODL MTDD
[2016-04-07] MEDS ORDERED: diphenhydrAMINE 25 MG CAP PO ONE (22:53)
[2016-04-08] MEDS: VANCOMYCIN 125 MG/2.5 ML UDL PO SCH ×4 (05:00→21:18)
[2016-04-08 05:49] LABS: % IMMATURE GRANULYOCYTES 0.5 % (0.0-1.1); ABSOLUTE IMMATURE GRANULOCYTES 0.04 10^3/uL (0.00-0.10); ADD DIFF? NO; ADD MORPH? NO; ADD SCAN? NO; ATYPICAL LYMPHOCYTE FLAG 40 (0-99); FRAGMENT RBC FLAG 0 (0-99); HEMOGLOBIN 9.1 g/dL (13.7-17.5); LEFT SHIFT FLG 0 (0-99); LIPEMIA HEMOLYSIS FLAG 80 (0-99); MEAN CELL HEMOGLOBIN 28.9 pg (27.9-34.1); MEAN CELL HEMOGLOBIN CONCENTR. 32.5 g/dL (32.4-36.7); MEAN CELL VOLUME 88.9 fL (81.5-99.8); PLATELET CLUMPS FLAG 0 (0-99); PLATELET COUNT 217 10^3/uL (150-400); RED BLOOD CELL COUNT 3.15 10^6/uL (4.40-6.38); RED CELL DISTRIBUTION WIDTH 14.5 % (11.5-15.2)
[2016-04-08] MEDS: INSULIN REGULAR HUMAN 100 UNIT/ML SC SCH ×5 (06:02→21:18)
[2016-04-08 06:08] LABS: ALANINE AMINOTRANSFERASE 41 IU/L (21-72); ALKALINE PHOSPHATASE 187 IU/L (38-126); ANION GAP 4 mEq/L (8-16); ASPARTATE AMINOTRANSFERASE 16 IU/L (17-59); BILIRUBIN,TOTAL 0.5 mg/dL (0.1-1.4); CALCIUM 8.6 mg/dL (8.5-10.4); CARBON DIOXIDE 26 mEq/l (22-31); CHLORIDE 106 mEq/L (97-110); CREATININE 0.7 mg/dL (0.7-1.3); GLOMERULAR FILTRATION RATE > 60; GLUCOSE 127 mg/dL (70-100); POTASSIUM 4.1 mEq/L (3.5-5.2); SODIUM 136 mEq/L (134-144); TOTAL PROTEIN 4.7 g/dL (6.3-8.2)
[2016-04-08] MEDS ORDERED: LIDOCAINE 2% 5 ML SDV ONE ×2 (08:09)
[2016-04-08] MEDS ORDERED: fentaNYL 100 MCG/2 ML INJ ONE (08:09)
[2016-04-08] MEDS ORDERED: PROPOFOL/EMULSION 500 MG/50 ML BOTTLE IV ONE (08:10)
--- NOTE | 2016-04-08 08:48 | POSTOPPROG ---
Post Op Note Date of Operation: 04/08/16 Surgeon: Fahad Cedeno Associate Spa Director: None Anesthesiologist: Dr Chowdhury Anesthesia: Other (Specify) (IV General) Pre-op Diagnosis: Melena, colitis Post-op Diagnosis: Same Indication: BRB per rectum in the setting of colitis. Procedure: Colonoscopy with bx's. Findings: Rodríguez ulcerative colitis with diffusely scattered ulcers with bleeding. Inf/Abcess present in the surg proc area at time of surgery?: No Depth: Superfical (Skin SQ) EBL: Minimal Complications: None. Specimen(s): Random colon biopsies.
--- NOTE | 2016-04-08 09:24 | GPN ---
DATE OF PROCEDURE: 04/08/2016 PROCEDURE: Total colonoscopy with random biopsies. PREOPERATIVE DIAGNOSIS: Bloody diarrhea in the setting of biologic therapy-induced colitis. POSTOPERATIVE DIAGNOSIS: Panulcerative colitis with diffuse, scattered, shallow ulcerations with fr iability, cause of the patient's rectal bleeding and posthemorrhagic anemia. HISTORY OF PRESENT ILLNESS: The patient is a 55-year-old gentleman with recurrent melanoma of the r ight upper extremity who, after receiving biologic therapy, developed pancolitis, which was complica ariel by C difficile colitis. He has had frequent bloody bowel movements over the last 48 hours with a drop in his hematocrit. He was set up for colonoscopy to assess the etiology of the bleed. PERMIT: The patient and father ([id number]) were informed of indications for procedure. Ris ks and benefits were outlined by me. Informed consent was obtained. PREOPERATIVE MEDICATIONS: IV conscious sedation per Dr. Stanislaw Chowdhury. PROCEDURE FINDINGS: PCF-180AL video colonoscope was inserted in the rectum and advanced to the cecu m gently without difficulty. Colonic prep was adequate with good visualization of the colonic mucos a. The scope was passed across the ileocecal valve into the terminal ileum. Distal 10 cm of the te rminal ileum appeared normal. Scope was slowly withdrawn. There were diffuse punctate erosions and shallow ulcerations involving the entire colon with friability and spontaneous oozing of bright red blood. These mucosal changes were evenly distributed throughout the whole colon. Random biopsies were obtained throughout the whole colon and placed in formalin to assess for etiology of colitis. The scope was slowly withdrawn and removed. Digital exam confirmed normal anal canal. The patient tolerated the procedure well and was sent to the recovery room in satisfactory condition. IMPRESSION: 1. Biologic therapy-induced clark ulcerative colitis, biopsied. 2. History of Clostridium difficile colitis without evidence of pseudomembranes on exam today. RECOMMENDATIONS: 1. IV steroid therapy. 2. Transfusion as needed for severe anemia. 3. We will follow with you. /[id number]/MODL
[2016-04-08] MEDS: PALIPERIDONE 3 MG TAB.ER PO SCH ×2 (10:58→21:20)
[2016-04-08] MEDS: buPROPion XL 150 MG TAB PO SCH (10:59)
[2016-04-08] MEDS: PANTOPRAZOLE SODIUM 40 MG TAB PO SCH (10:59)
[2016-04-08] MEDS: cloZAPine 25 MG TAB PO SCH ×2 (11:00→21:22)
[2016-04-08] MEDS: CLOTRIMAZOLE 1% 15 GM CRTUBE TP SCH ×2 (11:01→21:03)
[2016-04-08] MEDS: NICOTINE 14 MG/24 HR PATCH TD SCH (11:01)
--- NOTE | 2016-04-08 11:34 | SOAPPROG ---
SOAP Progress Note Assessment/Plan: Assessment: 1. Melanoma w/ mami recurrence, s/p resection and Yervoy immunotherapy 2. 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 C dif 4. Anemia due to hematochezia 5. Chronic schizophrenia Clinically stable. Endoscopic findings c/w immune toxicity from Yervoy. Plan: - continue high dose steroids - yervoy will be permanently discontinued - consider transfusion if hgb < 8 -- likely will recover on its own - PO vanco for C dif - hard to tell how much that is contributing to his colitis 04/08/16 11:32 Subjective: feeling better, but still some diarrhea. Objective: exam: Gen chronically ill poor dentition L subconjunctival hemorrhage Abd +BS. distended. nontender Ext: no edema neuro: a+ox3. endorses some hallucinations (imagines he is taking walks around the hospital when he is in bed) Vital Signs Temp Pulse Resp BP Pulse Ox 36.9 C 83 16 130/85 H 93 04/08/16 09:42 04/08/16 09:42 04/08/16 09:42 04/08/16 09:42 04/08/16 09:42 Laboratory Results 04/08/16 05:27 04/08/16 05:27 04/07/16 04/08/16 04/09/16 05:59 05:59 05:59 Intake Total 1600 1500 620 Output Total 1310 150 Balance 1600 190 470 PT 15.3 SEC (12.0-15.0) H 04/07/16 05:45 INR 1.21 (0.83-1.16) H 04/07/16 05:45 - Time Spent With Patient Time Spent With Patient: 25 min ICD10 Worksheet Patient Problems: Problems Problem Status Onset C. difficile diarrhea Acute Cardiac arrest Acute Septic shock Acute Bacteremia Acute Hyponatremia Acute Schizophrenia Acute
--- NOTE | 2016-04-08 11:43 | BCON ---
PSYCHIATRIC CONSULTATION DATE OF CONSULTATION: 04/02/2016 REASON FOR CONSULTATION: The patient has been off psych medications, needs assistance with resuming. This dictation is late as Dr. Farmer, the patient's psychiatrist, was out ill and more history needed to be obtained. Also, the patient's medications have been titrated daily since the original consult from 04/02/2016 until 04/07/2016. IDENTIFYING DATA: Patient is a 55-year-old, single man, who has no children, who has been living at [facility] who has a history of schizoaffective disorder , depressed type. The patient reports he has been on disability since the age of 17. The patient was admitted for cardiac arrest on 03/26/2016. He is a resident of [facility] and coded in front of them. He has a history of stage IIB melanoma of the right upper extremity, which was diagnosed in July of 2014, with a recurrence in October of 2015 with axillary node resection. The patient has undergone 2 cycles of adjuvant Ipilimumab and developed diarrhea, dehydration, collapsed at [facility], and was admitted with cardiac arrest which responded to CPR. The patient's hospitalization has been complicated by pancolitis thought secondary to his chemo along with diarrhea, as well as the development of C difficile colitis. He is now on vancomycin therapy for this. Patient has a long history of schizoaffective disorder. He had 1 hospitalization in our system from 11/16/2010 to 11/27/2010. He was diagnosed with schizophrenia at that time and was discharged on Clozaril 250 mg in the morning and 350 at night, Zyprexa 10 mg b.i.d., Eskalith 450 mg t.i.d., Inderal for akathisia 20 mg b.i.d. and Cogentin 1 mg b.i.d. p.r.n. EPS. The patient was seen by [facility] psychiatric nurse during the this admission on 04/01/2016 and 04/02/2016. His psychoactive medication was interrupted for 4 days due to his cardiac arrest. Pharmacy put him back on his Wellbutrin 300 mg a day and Lexapro 20 mg a day and the team needed assistance with titration of the Clozaril and Invega. PSYCHIATRIC HISTORY: Patient has a long history of schizoaffective disorder. Dr. Farmer is his psychiatrist and sees him at [facility] and the pt is a current client at [facility]. When he is at his baseline, he has chronic auditory hallucinations, however, functions well, has linear thinking and is able to ask for his needs. No known history of aggression at [facility]. According to the staff, he is more prone to bipolar mixed states. However, he has been stable on his current med regime. Dr. Farmer states his current medications were Wellbutrin XL 300 mg daily, Lexapro 20 mg daily, Clozaril 200 mg daily and 250 mg at bedtime and Invega 9 mg b.i.d. The patient has had numerous psychiatric hospitalizations throughout his lifetime for mental illness. He was seen on our unit from 11/16/2010 to 2010, and at that time, he reported he had been in the hospital 7 or 8 times. He reports that his illness began about the time he was age 16 when he took a "massive dose" of LSD. Since that time, he has been hearing voices. He bought the LSD on the street and then took it. The patient has been followed at [facility] since then. He has been on disability since age 17 due to his mental illness. No hx of suicide attempts. 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 LEGAL ISSUES: The patient was arrested for assault in 1987 and spent several weeks [facility]. FAMILY HISTORY: No family history known. SOCIAL HISTORY: The patient was born in [place] where he grew up. He dropped out of the 11th grade. He has not been able to function well since he did the LSD at age 16. He was not a good student and had trouble learning. 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 MENTAL STATUS EXAM: On April 02, the patient is calm but somnolent. Mood is described as "depressed". Affect is constricted. The patient reports chronic auditory hallucinations. Denies suicidal or homicidal ideations. No delusions expressed, but in the past, he had a delusion about a demon who had been after him for 2 years. He feels the medication helps his symptoms. Memory and concentration are fair. No symptoms of acute psychosis. Insight and judgment are fair. IMPRESSION: Schizoaffective disorder, depressed type. PLAN: Over time, the patient has been titrated back to his current dose of Wellbutrin XL 300 mg daily, Lexapro 20 mg daily, clozapine 200 mg daily and 250 mg at bedtime. He is currently psychiatrically stable for transfer back to [facility] when he is medically stable. He is currently on all his psych medications. He will be followed by Dr. Farmer upon discharge who sees him at [facility], and he is aware that he is in the hospital at this time. Thank you for involving me in the care of this patient. /[id number]/MODL MTDD
[2016-04-08] MEDS: methylPREDNISolone SOD SUCC 40 MG/ML VIAL IVP SCH ×2 (13:28→21:25)
--- NOTE | 2016-04-08 16:58 | HOSPPROG ---
Hospitalist Progress Note Assessment/Plan: Assessment: 55 yo M p/w septic shock in the setting of suspected aspiration pneumonia and cardiac arrest c/b autoimmune pancolitis and possible CDiff colitis Plan: # PEA Cardiac arrest. Suspected to be 2/2 hypovolemia/sepsis # Septic Shock. 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 Cedeno - off biologic agent - started on IV steroids, plan to adjust to PO steroids tomorrow - monitoring Hgb # Possible CDifficile colitis. Positive PCR, hx of Cdiff - cont on PO Vanco # Possible aspiration pneumonia. Likely in setting of PEA arrest, present on CXR , s/p Invanz # Acute hypoxic and hypercapnic respiratory failure. Evidenced by inability to protect airway in field resulting in intubation, pCO2 53 w/ pH 7.13, objective tachypnea (RR 30), requiring mechanical ventilation in ICU - cont on supp o2 # MAKENZIE. 2/2 hypovolemia and sepsis, s/p IVF, peak Cr 3.0, resolved # RUE Melanoma /recurrence in the axilla- s/p 2 cycles of Ipilinumab - d/w Dr. Saunders, will no longer receive this agent # Schizoaffective disorder. Chronic, psych consult / appreciated - cont on Clozaril + Invega 9 mg daily # DM II. Cont holding metformin # Acute encephalopathy. Evidenced by global brain dysfunction characterized as unresponsiveness, confusion, acute change from his baseline, secondary to cardiac arrest as well as toxic effects of infection and metabolic effects of acidosis # Metabolic acidosis. Acute, 2/2 lactic acid, resolved # Chronic hyponatremia. 2/2 primary polydipsia - holding DDAVP # Acute lower GI hemorrhage w/ acute blood loss anemia. 2/2 pancolitis, monitor Hgb Diet. Clears to reg today PPx. High risk, SCDs, pharm contraindicated given bleed Code. Full Dispo. ADD uncertain, to [facility] when medically stable Subjective: Patient reports that he has not had any bloody stools today, abdominal pain is stable Objective: Vital Signs Temp Pulse Resp BP Pulse Ox 37.1 C 80 20 148/86 H 95 04/08/16 15:58 04/08/16 15:58 04/08/16 15:58 04/08/16 15:58 04/08/16 15:58 Laboratory Results 04/08/16 05:27 04/08/16 05:27 04/07/16 04/08/16 04/09/16 05:59 05:59 05:59 Intake Total 1600 1500 620 Output Total 1310 150 Balance 1600 190 470 PT 15.3 SEC (12.0-15.0) H 04/07/16 05:45 INR 1.21 (0.83-1.16) H 04/07/16 05:45 - Physical Exam Constitutional: no apparent distress, not in pain, chronically ill appearing Eyes: other (Hemorrhage on left skull area with constricted left pupil) Cardiovascular: regular rate and rhythym, no murmur, rub, or gallop, No tachycardia, No edema Respiratory: inspiratory crackles, No reduced air movement, No expiratory wheeze , No bronchial breath sounds Gastrointestinal: normoactive bowel sounds, no palpable masses, tenderness ( Mild in lower abdomen), No distension Neurologic: AAOx3, sensation intact bilaterally, No facial droop Psychiatric: not anxious, not encephalopathic, thought process linear, flat affect, No agitated ICD10 Worksheet Patient Problems: Problems Problem Status Onset C. difficile diarrhea Acute Cardiac arrest Acute Septic shock Acute Bacteremia Acute Hyponatremia Acute Schizophrenia Acute
[2016-04-08] MEDS: PETROLAT,WHT/MIN OIL/SOD CHL 3.5 GM OPHT.OINT EACHEYE PRN (21:16)
[2016-04-08] MEDS: ESCITALOPRAM OXALATE 10 MG TAB TUBE SCH (21:19)
[2016-04-08] MEDS: ATORVASTATIN CALCIUM 10 MG TAB PO SCH (21:21)
[2016-04-08] MEDS: cloZAPine 100 MG TAB PO SCH (21:21)
[2016-04-08] MEDS: ACETAMINOPHEN 325 MG TAB PO PRN (21:22)
[2016-04-09] MEDS: methylPREDNISolone SOD SUCC 40 MG/ML VIAL IVP SCH ×3 (05:17→22:17)
[2016-04-09] MEDS: VANCOMYCIN 125 MG/2.5 ML UDL PO SCH ×4 (05:17→22:17)
[2016-04-09 06:28] LABS: % IMMATURE GRANULYOCYTES 0.4 % (0.0-1.1); ABSOLUTE IMMATURE GRANULOCYTES 0.03 10^3/uL (0.00-0.10); ADD DIFF? NO; ADD MORPH? NO; ADD SCAN? NO; ATYPICAL LYMPHOCYTE FLAG 30 (0-99); FRAGMENT RBC FLAG 0 (0-99); HEMATOCRIT 26.5 % (40.0-51.0); HEMOGLOBIN 8.7 g/dL (13.7-17.5); LEFT SHIFT FLG 0 (0-99); LIPEMIA HEMOLYSIS FLAG 80 (0-99); MEAN CELL HEMOGLOBIN 29.1 pg (27.9-34.1); MEAN CELL HEMOGLOBIN CONCENTR. 32.8 g/dL (32.4-36.7); MEAN CELL VOLUME 88.6 fL (81.5-99.8); MEAN PLATELET VOLUME 9.1 fL (8.7-11.7); PLATELET CLUMPS FLAG 0 (0-99); PLATELET COUNT 230 10^3/uL (150-400); RED BLOOD CELL COUNT 2.99 10^6/uL (4.40-6.38); RED CELL DISTRIBUTION WIDTH 14.5 % (11.5-15.2)
[2016-04-09 06:41] LABS: ANION GAP 6 mEq/L (8-16); CALCIUM 8.8 mg/dL (8.5-10.4); CARBON DIOXIDE 25 mEq/l (22-31); CHLORIDE 106 mEq/L (97-110); CREATININE 0.7 mg/dL (0.7-1.3); GLOMERULAR FILTRATION RATE > 60; GLUCOSE 247 mg/dL (70-100); POTASSIUM 4.5 mEq/L (3.5-5.2); SODIUM 137 mEq/L (134-144)
[2016-04-09] MEDS: PANTOPRAZOLE SODIUM 40 MG TAB PO SCH (09:39)
[2016-04-09] MEDS: INSULIN REGULAR HUMAN 100 UNIT/ML SC SCH ×4 (09:39→22:32)
[2016-04-09] MEDS: buPROPion XL 150 MG TAB PO SCH (09:39)
[2016-04-09] MEDS: PALIPERIDONE 3 MG TAB.ER PO SCH ×2 (09:40→22:18)
[2016-04-09] MEDS: NICOTINE 14 MG/24 HR PATCH TD SCH (09:40)
[2016-04-09] MEDS: CLOTRIMAZOLE 1% 15 GM CRTUBE TP SCH ×2 (09:41→22:18)
[2016-04-09] MEDS: cloZAPine 25 MG TAB PO SCH ×2 (10:12→22:18)
[2016-04-09] MEDS ORDERED: NS 1,000 ML IV ONE ×2 (14:33)
--- NOTE | 2016-04-09 15:56 | HOSPPROG ---
Hospitalist Progress Note Assessment/Plan: DIAGNOSES: # PEA Cardiac arrest. Suspected to be 2/2 hypovolemia/sepsis # ? of Septic Shock vs other causes of SIRS including hypovolemia anemia etc # Autoimmune Pancolitis Secondary to Ipilimumab -no pseudomembranous change on endoscopy (path pending); positive C Diff potentially colonization # ?Possible CDifficile colitis( Positive PCR, hx of Cdiff but no endoscopic changes c/w that) -cont on PO Vanco pending path # Possible aspiration pneumonia. Likely in setting of PEA arrest, present on CXR , s/p Invanz # Acute hypoxic and hypercapnic respiratory failure. Evidenced by inability to protect airway in field resulting in intubation, pCO2 53 w/ pH 7.13, objective tachypnea (RR 30), requiring mechanical ventilation in ICU - cont on supp o2 # MAKENZIE. 2/2 hypovolemia and ?sepsis, s/p IVF, peak Cr 3.0, resolved # Schizoaffective disorder. Chronic, psych consult / appreciated - cont on Clozaril + Invega 9 mg daily # DM II. -sugars notably higher today, suspect due to steroid and dehydration and holding metformin # Acute encephalopathy. Evidenced by global brain dysfunction characterized as unresponsiveness, confusion, acute change from his baseline, secondary to cardiac arrest as well as toxic effects of infection and metabolic effects of acidosis # Metabolic acidosis. Acute, 2/2 lactic acid, resolved # Acute lower GI hemorrhage w/ acute blood loss anemia. 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 Saunders, will no longer receive this agent Today he is very weak and looks quite weak and fatigued, disoriented. I suspect he is dehydrated from ongoing GI losses diarrhea. PLANS: -2 L of IV saline bolus now and reexamine -follow chemistry and Hg closely -continue steroid -will likely need to increase insulin, recheck sugars after hydration SUBJECTIVE: symptoms hard to assess as pt is disoriented and quite weak, speech hard to understand VITAL SIGNS: stable without fever EXAM: awake but lethargic and disoriented skin warm dry but with poor turgor, pale resps not labored lungs clear heart regular abd soft distended, tender no rebound no edema joints normal no cyanosis or mottling of skin iv site good LABORATORY DATA: sugars are higher most recent > 340 Objective: Vital Signs Temp Pulse Resp BP Pulse Ox 36.9 C 89 20 129/50 H 91 L 04/09/16 12:00 04/09/16 12:00 04/09/16 12:00 04/09/16 12:00 04/09/16 12:00 Laboratory Results 04/09/16 05:52 04/09/16 05:52 04/08/16 04/09/16 04/10/16 06:59 06:59 06:59 Intake Total 1500 870 Output Total 1310 900 400 Balance 190 -30 -400 PT 15.3 SEC (12.0-15.0) H 04/07/16 05:45 INR 1.21 (0.83-1.16) H 04/07/16 05:45 ICD10 Worksheet Patient Problems: Problems Problem Status Onset C. difficile diarrhea Acute Cardiac arrest Acute Septic shock Acute Bacteremia Acute Hyponatremia Acute Schizophrenia Acute
--- NOTE | 2016-04-09 17:52 | SOAPPROG ---
SOAP Progress Note Assessment/Plan: Assessment: Rodríguez-colitis with diarrhea; slightly improved today. Plan: Continue IV steroids. Fahad Cedeno MD 04/09/16 17:49 Subjective: CC: Colitis. Interval HPI: Diarrhea persists but only 3 BM so far today. Tolerating po OK. No abdominal pain. Objective: Vital Signs Temp Pulse Resp BP Pulse Ox 36.4 C 84 18 142/72 H 94 04/09/16 16:00 04/09/16 16:00 04/09/16 16:00 04/09/16 16:00 04/09/16 16:00 Laboratory Results 04/09/16 05:52 04/09/16 05:52 04/08/16 04/09/16 04/10/16 05:59 05:59 05:59 Intake Total 1500 870 Output Total 1310 900 400 Balance 190 -30 -400 PT 15.3 SEC (12.0-15.0) H 04/07/16 05:45 INR 1.21 (0.83-1.16) H 04/07/16 05:45 Physical Exam - Physical Exam General Appearance: alert, no apparent distress Respiratory: lungs clear, normal breath sounds Cardiac/Chest: normal peripheral pulses, regular rate, rhythm Abdomen: normal bowel sounds, non-tender, soft Skin: normal color, warm/dry Neuro/Psych: alert, normal mood/affect ICD10 Worksheet Patient Problems: Problems Problem Status Onset C. difficile diarrhea Acute Cardiac arrest Acute Septic shock Acute Bacteremia Acute Hyponatremia Acute Schizophrenia Acute
[2016-04-09] MEDS ORDERED: INSULIN LISPRO 100 UNIT/ML SC SCH (21:48)
[2016-04-09] MEDS: INSULIN LISPRO 100 UNIT/ML SC SCH (22:17)
[2016-04-09] MEDS: ESCITALOPRAM OXALATE 10 MG TAB TUBE SCH (22:17)
[2016-04-09] MEDS: cloZAPine 100 MG TAB PO SCH (22:18)
[2016-04-09] MEDS: ATORVASTATIN CALCIUM 10 MG TAB PO SCH (22:18)
[2016-04-09] MEDS: NS W/ 20 KCl/L 1,000 ML IV SCH (22:56)
[2016-04-10] MEDS: methylPREDNISolone SOD SUCC 40 MG/ML VIAL IVP SCH ×3 (06:11→21:28)
[2016-04-10] MEDS: VANCOMYCIN 125 MG/2.5 ML UDL PO SCH ×4 (06:12→21:29)
[2016-04-10] MEDS ORDERED: INSULIN LISPRO 100 UNIT/ML SC SCH (07:30)
[2016-04-10] MEDS: buPROPion XL 150 MG TAB PO SCH (07:43)
[2016-04-10] MEDS: PANTOPRAZOLE SODIUM 40 MG TAB PO SCH (07:43)
[2016-04-10] MEDS: cloZAPine 25 MG TAB PO SCH ×2 (07:44→21:27)
[2016-04-10] MEDS: PALIPERIDONE 3 MG TAB.ER PO SCH ×2 (07:44→21:26)
[2016-04-10] MEDS: CLOTRIMAZOLE 1% 15 GM CRTUBE TP SCH ×2 (07:48→21:29)
[2016-04-10] MEDS: INSULIN LISPRO 100 UNIT/ML SC SCH ×4 (08:01→21:28)
--- NOTE | 2016-04-10 09:34 | SOAPPROG ---
SOAP Progress Note Assessment/Plan: Assessment: 1. Melanoma w/ mami recurrence, s/p resection and Yervoy immunotherapy 2. 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 C dif 4. Anemia due to hematochezia 5. Chronic schizophrenia - Diarrhea improving. His psychosis is worse, likely due to steroids and acute medical illness. Plan: - continue high dose steroids - yervoy will be permanently discontinued - consider transfusion if hgb < 8 -- likely will recover on its own. will check iron stores - may benefit from IV iron if low./ - PO vanco for C dif - hard to tell how much that is contributing to his colitis 04/08/16 11:32 04/10/16 09:33 Subjective: no complaints./ Objective: exam: thin, NAD Lungs CTAB CV RRR no MGR aBd: +BS ND NT Ext: no edema Neuro: alert and oriented, but with tangential and bizarre thought process Vital Signs Temp Pulse Resp BP Pulse Ox 36.5 C 85 18 138/84 H 97 04/10/16 07:40 04/10/16 07:40 04/10/16 07:40 04/10/16 07:40 04/10/16 07:40 Laboratory Results 04/09/16 05:52 04/09/16 05:52 04/09/16 04/10/16 04/11/16 05:59 05:59 05:59 Intake Total 870 4425 Output Total 900 400 Balance -30 4025 PT 15.3 SEC (12.0-15.0) H 04/07/16 05:45 INR 1.21 (0.83-1.16) H 04/07/16 05:45 ICD10 Worksheet Patient Problems: Problems Problem Status Onset C. difficile diarrhea Acute Cardiac arrest Acute Septic shock Acute Bacteremia Acute Hyponatremia Acute Schizophrenia Acute
[2016-04-10 10:38] LABS: % IMMATURE GRANULYOCYTES 0.5 % (0.0-1.1); ABSOLUTE IMMATURE GRANULOCYTES 0.04 10^3/uL (0.00-0.10); ADD DIFF? NO; ADD MORPH? NO; ADD SCAN? NO; ATYPICAL LYMPHOCYTE FLAG 20 (0-99); FRAGMENT RBC FLAG 0 (0-99); HEMATOCRIT 28.3 % (40.0-51.0); LEFT SHIFT FLG 0 (0-99); LIPEMIA HEMOLYSIS FLAG 80 (0-99); MEAN CELL HEMOGLOBIN 28.1 pg (27.9-34.1); MEAN CELL HEMOGLOBIN CONCENTR. 31.8 g/dL (32.4-36.7); MEAN CELL VOLUME 88.4 fL (81.5-99.8); MEAN PLATELET VOLUME 8.4 fL (8.7-11.7); PLATELET CLUMPS FLAG 10 (0-99); PLATELET COUNT 256 10^3/uL (150-400); RED CELL DISTRIBUTION WIDTH 14.7 % (11.5-15.2)
--- NOTE | 2016-04-10 11:07 | SOAPPROG ---
SOAP Progress Note Assessment/Plan: Assessment: 1. Rodríguez-colitis with diarrhea; improved today. 2. Post-hemorrhagic anemia; stable. Plan: 1. Continue IV steroids additional day, may be able to switch to Prednisone tomorrow. 2. Iron studies and replacement as needed. Fahad Cedeno MD 04/10/16 11:08 Subjective: CC: Colitis. Interval HPI: Diarrhea improved and more formed. No significant blood in stool. Objective: Vital Signs Temp Pulse Resp BP Pulse Ox 36.5 C 85 18 138/84 H 97 04/10/16 07:40 04/10/16 07:40 04/10/16 07:40 04/10/16 07:40 04/10/16 07:40 Laboratory Results 04/10/16 10:33 04/09/16 05:52 04/09/16 04/10/16 04/11/16 05:59 05:59 05:59 Intake Total 870 4425 Output Total 900 400 Balance -30 4025 PT 15.3 SEC (12.0-15.0) H 04/07/16 05:45 INR 1.21 (0.83-1.16) H 04/07/16 05:45 Physical Exam - Physical Exam General Appearance: alert, no apparent distress Respiratory: lungs clear, normal breath sounds Cardiac/Chest: normal peripheral pulses, regular rate, rhythm Abdomen: normal bowel sounds, non-tender, soft Skin: normal color, warm/dry ICD10 Worksheet Patient Problems: Problems Problem Status Onset C. difficile diarrhea Acute Cardiac arrest Acute Septic shock Acute Bacteremia Acute Hyponatremia Acute Schizophrenia Acute
[2016-04-10 11:19] LABS: % SATURATION 28 % (20-55); TOTAL IRON BINDING CAPACITY 211 ug/dL (260-490)
[2016-04-10] MEDS: NICOTINE 14 MG/24 HR PATCH TD SCH (11:54)
--- NOTE | 2016-04-10 14:16 | HOSPPROG ---
Hospitalist Progress Note Assessment/Plan: DIAGNOSES: # PEA Cardiac arrest. Suspected to be 2/2 hypovolemia/sepsis # ? of Septic Shock vs other causes of SIRS including hypovolemia anemia etc # Autoimmune Pancolitis Secondary to Ipilimumab -no pseudomembranous change on endoscopy (path pending); positive C Diff potentially colonization # Acute encephalopathy / Psychosis -initially there was likely metabolic/inflammatory mechanism of encephalopathy. Now he appears more likely to be presenting exacerbation of Bipolar disorder with paranoid delusions and hallucionations, triggered by steroid and by poor absorption of his psych meds in addition to his acute illness # DM II. -sugars remain higher today, suspect due to steroid and dehydration and holding metformin # ?Possible C Difficile colitis( Positive PCR, hx of Cdiff but no endoscopic changes c/w that) -cont on PO Vanco pending path # Possible aspiration pneumonia. Likely in setting of PEA arrest, present on CXR , s/p Invanz # Acute hypoxic and hypercapnic respiratory failure. Evidenced by inability to protect airway in field resulting in intubation, pCO2 53 w/ pH 7.13, objective tachypnea (RR 30), requiring mechanical ventilatio n in ICU - cont on supp o2 # MAKENZIE. 2/2 hypovolemia and ?sepsis, s/p IVF, peak Cr 3.0, resolved # Schizoaffective disorder. Chronic, psych consult / appreciated - cont on Clozaril + Invega 9 mg daily # Metabolic acidosis. Acute, 2/2 lactic acid, resolved # Acute lower GI hemorrhage w/ acute blood loss anemia. 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 Saunders, will no longer receive this agent Today he is much more alert and interactive. However he is very psychotic with bizarre delusions and paranoia as well as hallucinations. I do not really know what his actual baseline is regarding his bipolar disorder when he is not medically ill acutely. However his steroids are probably aggravating his bipolar, as well as potentially poor absorption of his medications for bipolar disorder given his acute got illness. His sugars remain elevated better better than yesterday PLANS: -continue IV hydration -will increase insulin add some long-acting - continue his antipsychotic medicines and may need to consider increasing dose temporarily -follow his bowel function, white and red blood cell counts closely SUBJECTIVE: Today is very delusional with bizarre ideation and unable to really assess his symptoms he is very focused on his delusions VITAL SIGNS: stable without fever EXAM: awake and interacts normally, however is very bizarre with paranoid ideation and hallucinations; he has however relaxed and is cooperating with examination eating his breakfast skin warm dry but with poor turgor, pale resps not labored lungs clear heart regular abd soft distended, tender no rebound no edema joints normal no cyanosis or mottling of skin iv site good LABORATORY DATA: sugars overall improved but remain all greater than 200 Objective: Vital Signs Temp Pulse Resp BP Pulse Ox 36.5 C 86 17 131/71 H 90 L 04/10/16 11:54 04/10/16 11:54 04/10/16 11:54 04/10/16 11:54 04/10/16 11:54 Laboratory Results 04/10/16 10:33 04/09/16 05:52 04/09/16 04/10/16 04/11/16 06:59 06:59 06:59 Intake Total 870 4425 Output Total 900 400 Balance -30 4025 PT 15.3 SEC (12.0-15.0) H 04/07/16 05:45 INR 1.21 (0.83-1.16) H 04/07/16 05:45 ICD10 Worksheet Patient Problems: Problems Problem Status Onset C. difficile diarrhea Acute Cardiac arrest Acute Septic shock Acute Bacteremia Acute Hyponatremia Acute Schizophrenia Acute
[2016-04-10] MEDS: NS W/ 20 KCl/L 1,000 ML IV SCH (14:46)
[2016-04-10] MEDS ORDERED: INSULIN GLARGINE 100 UNITS/ML SYRINGE SC SCH (21:00)
[2016-04-10] MEDS: ESCITALOPRAM OXALATE 10 MG TAB TUBE SCH (21:27)
[2016-04-10] MEDS: cloZAPine 100 MG TAB PO SCH (21:27)
[2016-04-10] MEDS: ATORVASTATIN CALCIUM 10 MG TAB PO SCH (22:24)
[2016-04-10] MEDS: HALOPERIDOL LACT 5 MG/ML INJ IVP PRN (23:15)
[2016-04-11] MEDS ORDERED: ZOLPIDEM TARTRATE 5 MG TAB PO ONE (01:30)
[2016-04-11] MEDS: NS W/ 20 KCl/L 1,000 ML IV SCH (03:36)
[2016-04-11] MEDS: methylPREDNISolone SOD SUCC 40 MG/ML VIAL IVP SCH ×2 (05:28→13:28)
[2016-04-11] MEDS: VANCOMYCIN 125 MG/2.5 ML UDL PO SCH ×4 (05:28→20:09)
[2016-04-11] MEDS: INSULIN LISPRO 100 UNIT/ML SC SCH ×4 (07:58→20:04)
[2016-04-11] MEDS: PANTOPRAZOLE SODIUM 40 MG TAB PO SCH (09:06)
[2016-04-11] MEDS: cloZAPine 100 MG TAB PO SCH ×2 (09:07→20:06)
[2016-04-11] MEDS: buPROPion XL 150 MG TAB PO SCH (09:07)
[2016-04-11] MEDS: PALIPERIDONE 3 MG TAB.ER PO SCH ×2 (09:07→20:06)
[2016-04-11] MEDS: NICOTINE 14 MG/24 HR PATCH TD SCH (09:09)
[2016-04-11] MEDS: CLOTRIMAZOLE 1% 15 GM CRTUBE TP SCH ×2 (09:10→20:09)
[2016-04-11] MEDS: PETROLAT,WHT/MIN OIL/SOD CHL 3.5 GM OPHT.OINT EACHEYE PRN ×2 (09:13→19:17)
[2016-04-11] MEDS ORDERED: D5W 1/2 NS W/ 20 KCl/L 1,000 ML IV SCH (13:15)
[2016-04-11] MEDS ORDERED: NS W/ 20 KCl/L 1,000 ML IV SCH (13:45)
--- NOTE | 2016-04-11 15:21 | SOAPPROG ---
SOAP Progress Note Assessment/Plan: Assessment: 1. Rodríguez-colitis with diarrhea; 4 watery BMS today without blood. 2. Post-hemorrhagic anemia; stable. 3. Thought disorder with hallucinations(likely exacerbated by steroids). Plan: 1. Prednisone 40 mg PO BID, stop IV steroids today. Fahad Cedeno MD 04/11/16 15:24 Subjective: CC: Colitis. Interval HPI: Patient with 4 watery none bloody BM's so far today. No abdominal pain. Chronic hallucinations(baseline). Objective: Vital Signs Temp Pulse Resp BP Pulse Ox 36.8 C 78 18 124/80 H 94 04/11/16 12:00 04/11/16 12:00 04/11/16 12:00 04/11/16 12:00 04/11/16 12:00 Laboratory Results 04/10/16 10:33 04/09/16 05:52 04/10/16 04/11/16 04/12/16 05:59 05:59 05:59 Intake Total 4425 1230 1200 Output Total 400 300 650 Balance 4025 930 550 PT 15.3 SEC (12.0-15.0) H 04/07/16 05:45 INR 1.21 (0.83-1.16) H 04/07/16 05:45 Physical Exam - Physical Exam General Appearance: no apparent distress Respiratory: lungs clear, normal breath sounds Cardiac/Chest: normal peripheral pulses, regular rate, rhythm Abdomen: normal bowel sounds, non-tender, soft Skin: normal color, warm/dry ICD10 Worksheet Patient Problems: Problems Problem Status Onset C. difficile diarrhea Acute Cardiac arrest Acute Septic shock Acute Bacteremia Acute Hyponatremia Acute Schizophrenia Acute
--- NOTE | 2016-04-11 16:29 | HOSPPROG ---
Hospitalist Progress Note Assessment/Plan: DIAGNOSES: # PEA Cardiac arrest. Suspected to be 2/2 hypovolemia/sepsis # ? of Septic Shock vs other causes of SIRS including hypovolemia anemia etc # Autoimmune Pancolitis Secondary to Ipilimumab -no pseudomembranous change on endoscopy (path pending); positive C Diff potentially colonization # Acute encephalopathy / Psychosis -initially there was likely metabolic/inflammatory mechanism of encephalopathy. Now he appears more likely to be presenting exacerbation of Bipolar disorder with paranoid delusions and hallucionations, triggered by steroid and by poor absorption of his psych meds in addition to his acute illness # DM II. -sugars remain higher today, suspect due to steroid and dehydration and holding metformin # ?Possible C Difficile colitis( Positive PCR, hx of Cdiff but no endoscopic changes c/w that) -cont on PO Vanco pending path # Possible aspiration pneumonia. Likely in setting of PEA arrest, present on CXR , s/p Invanz # Acute hypoxic and hypercapnic respiratory failure. Evidenced by inability to protect airway in field resulting in intubation, pCO2 53 w/ pH 7.13, objective tachypnea (RR 30), requiring mechanical ventilatio n in ICU - cont on supp o2 # MAKENZIE. 2/2 hypovolemia and ?sepsis, s/p IVF, peak Cr 3.0, resolved # Schizoaffective disorder. Chronic, psych consult / appreciated - cont on Clozaril + Invega 9 mg daily # Metabolic acidosis. Acute, 2/2 lactic acid, resolved # Acute lower GI hemorrhage w/ acute blood loss anemia. 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 Saunders, will no longer receive this agent Today he is much more alert and interactive. However he is very psychotic with bizarre delusions and paranoia as well as hallucinations. I do not really know what his actual baseline is regarding his bipolar disorder when he is not medically ill acutely. However his steroids are probably aggravating his bipolar, as well as potentially poor absorption of his medications for bipolar disorder given his acute got illness. His sugars remain elevated better better than yesterday PLANS: -continue IV hydration but will do this intermittently as the tubing bothers him -will increase long-acting insulin -continue his antipsychotic medicines -follow his bowel function, white and red blood cell counts closely SUBJECTIVE: Today is still having some delusions but his delusions and hallucinations are bothering him a lot less and he is much more relaxed. He is still having multiple diarrheal stools so far 3 this morning. No bleeding or fever symptoms. His appetite is good VITAL SIGNS: stable without fever EXAM: awake and interacts normally; still with clearly paranoid delusions, but is very relaxed today and only mentions his hallucinations when I mentioned that to him. The nurse has witnessed him talking to people in the room that are not there as well as grabbing at things in the space around him skin warm dry but with poor turgor, pale resps not labored lungs clear heart regular abd soft distended, tender no rebound no edema joints normal no cyanosis or mottling of skin iv site good LABORATORY DATA: sugars overall improved but remain higher than ideal Objective: Vital Signs Temp Pulse Resp BP Pulse Ox 36.8 C 78 18 124/80 H 94 04/11/16 12:00 04/11/16 12:00 04/11/16 12:00 04/11/16 12:00 04/11/16 12:00 Laboratory Results 04/10/16 10:33 04/09/16 05:52 04/10/16 04/11/16 04/12/16 06:59 06:59 06:59 Intake Total 4425 1230 1200 Output Total 400 300 650 Balance 4025 930 550 PT 15.3 SEC (12.0-15.0) H 04/07/16 05:45 INR 1.21 (0.83-1.16) H 04/07/16 05:45 ICD10 Worksheet Patient Problems: Problems Problem Status Onset C. difficile diarrhea Acute Cardiac arrest Acute Septic shock Acute Bacteremia Acute Hyponatremia Acute Schizophrenia Acute
[2016-04-11] MEDS: predniSONE 20 MG TAB PO SCH (17:25)
[2016-04-11] MEDS: INSULIN GLARGINE 100 UNITS/ML SYRINGE SC SCH (20:03)
[2016-04-11] MEDS: ATORVASTATIN CALCIUM 10 MG TAB PO SCH (20:05)
[2016-04-11] MEDS: ESCITALOPRAM OXALATE 10 MG TAB TUBE SCH (20:05)
[2016-04-11] MEDS: MELATONIN 3 MG TAB PO SCH (20:06)
[2016-04-11] MEDS: cloZAPine 25 MG TAB PO SCH (20:07)
[2016-04-12] MEDS: VANCOMYCIN 125 MG/2.5 ML UDL PO SCH ×4 (05:53→21:36)
[2016-04-12] MEDS: cloZAPine 100 MG TAB PO SCH ×2 (09:20→21:37)
[2016-04-12] MEDS: PANTOPRAZOLE SODIUM 40 MG TAB PO SCH (09:20)
[2016-04-12] MEDS: predniSONE 20 MG TAB PO SCH ×2 (09:20→18:12)
[2016-04-12] MEDS: buPROPion XL 150 MG TAB PO SCH (09:21)
[2016-04-12] MEDS: PALIPERIDONE 3 MG TAB.ER PO SCH ×2 (09:21→21:36)
[2016-04-12] MEDS: INSULIN LISPRO 100 UNIT/ML SC SCH ×4 (09:21→22:26)
--- NOTE | 2016-04-12 09:22 | SOAPPROG ---
SOAP Progress Note Assessment/Plan: Assessment: 1. Melanoma w/ mami recurrence, s/p resection and Yervoy immunotherapy 2. 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 C dif 4. Anemia due to hematochezia 5. Chronic schizophrenia - Diarrhea improving. Plan: - continue steroids; taper per GI. - yervoy will be permanently discontinued - consider transfusion if hgb < 8 -- likely will recover on its own. - PO vanco for C dif - hard to tell how much that is contributing to his colitis 04/08/16 11:32 04/10/16 09:33 04/12/16 09:22 Subjective: resting. Objective: exam: NAD Lungs CTAB CV RRR no MGR Abd: +BS NT ND Ext: no edema Vital Signs Temp Pulse Resp BP Pulse Ox 36.7 C 94 14 125/80 H 95 04/12/16 08:00 04/12/16 08:00 04/12/16 08:00 04/12/16 08:00 04/12/16 08:00 Laboratory Results 04/10/16 10:33 04/09/16 05:52 04/11/16 04/12/16 04/13/16 05:59 05:59 05:59 Intake Total 1230 2550 Output Total 300 1250 Balance 930 1300 PT 15.3 SEC (12.0-15.0) H 04/07/16 05:45 INR 1.21 (0.83-1.16) H 04/07/16 05:45 ICD10 Worksheet Patient Problems: Problems Problem Status Onset C. difficile diarrhea Acute Cardiac arrest Acute Septic shock Acute Bacteremia Acute Hyponatremia Acute Schizophrenia Acute
[2016-04-12] MEDS: NICOTINE 14 MG/24 HR PATCH TD SCH (09:23)
[2016-04-12] MEDS: CLOTRIMAZOLE 1% 15 GM CRTUBE TP SCH ×2 (09:23→22:26)
--- NOTE | 2016-04-12 11:18 | SOAPPROG ---
SOAP Progress Note Assessment/Plan: Assessment: 1. Rodríguez-colitis with diarrhea; 2. Post-hemorrhagic anemia; stable. 3. Thought disorder with hallucinations(likely exacerbated by steroids). Plan: 1. Continue Prednisone 40 mg PO BID. Fahad Cedeno MD 04/12/16 11:14 Subjective: CC: Biologic induced colitis. Interval HPI: Diarrhea improving on oral Prednisone. No abnormal pain or blood in stool. Objective: Vital Signs Temp Pulse Resp BP Pulse Ox 36.7 C 94 14 125/80 H 95 04/12/16 08:00 04/12/16 08:00 04/12/16 08:00 04/12/16 08:00 04/12/16 08:00 Laboratory Results 04/10/16 10:33 04/09/16 05:52 04/11/16 04/12/16 04/13/16 05:59 05:59 05:59 Intake Total 1230 2550 Output Total 300 1250 Balance 930 1300 PT 15.3 SEC (12.0-15.0) H 04/07/16 05:45 INR 1.21 (0.83-1.16) H 04/07/16 05:45 Physical Exam - Physical Exam General Appearance: alert, no apparent distress Respiratory: lungs clear, normal breath sounds Cardiac/Chest: regular rate, rhythm Abdomen: normal bowel sounds, non-tender, soft Skin: normal color, warm/dry ICD10 Worksheet Patient Problems: Problems Problem Status Onset C. difficile diarrhea Acute Cardiac arrest Acute Septic shock Acute Bacteremia Acute Hyponatremia Acute Schizophrenia Acute
--- NOTE | 2016-04-12 19:40 | HOSPPROG ---
Hospitalist Progress Note Assessment/Plan: DIAGNOSES: # PEA Cardiac arrest. Suspected to be 2/2 hypovolemia/sepsis # ? 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 Now he appears more likely to be presenting exacerbation of Bipolar disorder with paranoid delusions and hallucionations, triggered by steroid and by poor absorption of his psych meds in addition to his acute illness # DM II. -sugars remain high today, suspect due to steroid and dehydration and holding metformin # ?Possible C Difficile colitis( Positive PCR, hx of Cdiff but no endoscopic changes c/w that) -cont on PO Vanco pending path # Possible aspiration pneumonia. Likely in setting of PEA arrest, present on CXR , s/p Invanz # Acute hypoxic and hypercapnic respiratory failure. Evidenced by inability to protect airway in field resulting in intubation, pCO2 53 w/ pH 7.13, objective tachypnea (RR 30), requiring mechanical ventilatio n in ICU - cont on supp o2 # MAKENZIE. 2/2 hypovolemia and ?sepsis, s/p IVF, peak Cr 3.0, resolved # Schizoaffective disorder. Chronic, psych consult / appreciated - cont on Clozaril + Invega 9 mg daily # Metabolic acidosis. Acute, 2/2 lactic acid, resolved # Acute lower GI hemorrhage w/ acute blood loss anemia. 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 Saunders, will no longer receive this agent He is more sleepy, somnolent today, has not really eaten as has been asleep most of day. Hard to gauge his status as he is not willing ot interact.d PLANS: -continue IV hydration but will do this intermittently as the tubing bothers him -will increase long-acting insulin -continue his antipsychotic medicines -follow his bowel function, white and red blood cell counts closely SUBJECTIVE: denies any discomfort but symptoms hard to assess as he is sleeping and declines to engage in conversation as I try to arouse him VITAL SIGNS: stable without fever EXAM: sleeping, but each time I awaken him he says he doesn't want to talk and rolls over and falls asleep again. resps not labored lungs clear heart regular abd soft distended, seems nontender no edema joints normal iv site good LABORATORY DATA: sugars still high despite increasing insulin doses each day Objective: Vital Signs Temp Pulse Resp BP Pulse Ox 36.7 C 104 H 18 114/73 98 04/12/16 15:23 04/12/16 15:23 04/12/16 15:23 04/12/16 15:23 04/12/16 15:23 Laboratory Results 04/10/16 10:33 04/09/16 05:52 04/11/16 04/12/16 04/13/16 06:59 06:59 06:59 Intake Total 1230 2550 Output Total 300 1250 650 Balance 930 1300 -650 PT 15.3 SEC (12.0-15.0) H 04/07/16 05:45 INR 1.21 (0.83-1.16) H 04/07/16 05:45 ICD10 Worksheet Patient Problems: Problems Problem Status Onset C. difficile diarrhea Acute Cardiac arrest Acute Septic shock Acute Bacteremia Acute Hyponatremia Acute Schizophrenia Acute
[2016-04-12] MEDS: ESCITALOPRAM OXALATE 10 MG TAB TUBE SCH (21:37)
[2016-04-12] MEDS: MELATONIN 3 MG TAB PO SCH (21:37)
[2016-04-12] MEDS: ATORVASTATIN CALCIUM 10 MG TAB PO SCH (21:37)
[2016-04-12] MEDS: cloZAPine 25 MG TAB PO SCH (21:38)
[2016-04-12] MEDS: INSULIN GLARGINE 100 UNITS/ML SYRINGE SC SCH (21:38)
[2016-04-13] MEDS: VANCOMYCIN 125 MG/2.5 ML UDL PO SCH ×4 (05:29→20:12)
[2016-04-13] MEDS: predniSONE 20 MG TAB PO SCH ×2 (08:40→17:01)
[2016-04-13] MEDS: INSULIN LISPRO 100 UNIT/ML SC SCH ×4 (08:40→22:03)
[2016-04-13] MEDS: PANTOPRAZOLE SODIUM 40 MG TAB PO SCH (08:41)
[2016-04-13] MEDS: PALIPERIDONE 3 MG TAB.ER PO SCH ×2 (08:43→20:11)
[2016-04-13] MEDS: buPROPion XL 150 MG TAB PO SCH (08:43)
[2016-04-13] MEDS: cloZAPine 100 MG TAB PO SCH ×2 (08:43→20:11)
[2016-04-13] MEDS: NICOTINE 14 MG/24 HR PATCH TD SCH (08:47)
[2016-04-13] MEDS: PETROLAT,WHT/MIN OIL/SOD CHL 3.5 GM OPHT.OINT EACHEYE PRN (08:51)
[2016-04-13] MEDS: CLOTRIMAZOLE 1% 15 GM CRTUBE TP SCH ×2 (08:53→20:12)
[2016-04-13] MEDS: ACETAMINOPHEN 325 MG TAB PO PRN ×2 (13:56→22:01)
--- NOTE | 2016-04-13 14:05 | HOSPPROG ---
Hospitalist Progress Note Assessment/Plan: DIAGNOSES: # PEA Cardiac arrest. Suspected to be 2/2 hypovolemia/sepsis # ? 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 Now he appears more likely to be presenting exacerbation of Bipolar disorder with paranoid delusions and hallucionations, triggered by steroid and by poor absorption of his psych meds in addition to his acute illness # DM II. -improved but flucutating more, probably mostly due to dietary noncompliance , we are having trouble stopping him from drinking sugar drinks and eating sweats so far here # ?Possible C Difficile colitis( Positive PCR, hx of Cdiff but no endoscopic changes c/w that) -cont on PO Vanco pending path # Possible aspiration pneumonia. Likely in setting of PEA arrest, present on CXR , s/p Invanz # Acute hypoxic and hypercapnic respiratory failure. Evidenced by inability to protect airway in field resulting in intubation, pCO2 53 w/ pH 7.13, objective tachypnea (RR 30), requiring mechanical ventilatio n in ICU - cont on supp o2 # MAKENZIE. 2/2 hypovolemia and ?sepsis, s/p IVF, peak Cr 3.0, resolved # Schizoaffective disorder. Chronic, psych consult / appreciated - cont on Clozaril + Invega 9 mg daily # Metabolic acidosis. Acute, 2/2 lactic acid, resolved # Acute lower GI hemorrhage w/ acute blood loss anemia. 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 Saunders, will no longer receive this agent more alert and talkative today, not very bothered by hallucinations today, and not speaking of delusional ideas today. On other hand is very limited in what he will say. Still w some abdominal pain but stools improving PLANS: -continue IV hydration but will do this intermittently as the tubing bothers him -will increase long-acting insulin, may need to add some standing dose premeal short acting insulin -continue his antipsychotic medicines -follow his bowel function, white and red blood cell counts closely SUBJECTIVE: denies any discomfort but symptoms hard to assess as he is sleeping and declines to engage in conversation as I try to arouse him VITAL SIGNS: stable without fever EXAM: sleeping, but each time I awaken him he says he doesn't want to talk and rolls over and falls asleep again. resps not labored lungs clear heart regular abd soft distended, seems nontender no edema joints normal iv site good LABORATORY DATA: sugars still high despite increasing insulin doses each day Objective: Vital Signs Temp Pulse Resp BP Pulse Ox 37.1 C 107 H 16 133/73 H 92 04/13/16 08:00 04/13/16 08:00 04/13/16 08:00 04/13/16 08:00 04/13/16 08:00 Laboratory Results 04/10/16 10:33 04/09/16 05:52 04/12/16 04/13/16 04/14/16 06:59 06:59 06:59 Intake Total 2550 4810 Output Total 1250 925 425 Balance 1300 3885 -425 PT 15.3 SEC (12.0-15.0) H 04/07/16 05:45 INR 1.21 (0.83-1.16) H 04/07/16 05:45 ICD10 Worksheet Patient Problems: Problems Problem Status Onset C. difficile diarrhea Acute Cardiac arrest Acute Septic shock Acute Bacteremia Acute Hyponatremia Acute Schizophrenia Acute
--- NOTE | 2016-04-13 16:17 | SOAPPROG ---
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 Continue current steroids * C diff +: probably contaminate but agree with po vanco on immunosuppression * Anemia due to hematochezia: consider transfusion if hgb < 8 * Chronic schizophrenia Subjective: Nursing reports large volume diarrhea x 3 today. Patient reports abd discomfort. Objective: Vital Signs Temp Pulse Resp BP Pulse Ox 37.1 C 107 H 16 133/73 H 92 04/13/16 08:00 04/13/16 08:00 04/13/16 08:00 04/13/16 08:00 04/13/16 08:00 Laboratory Results 04/10/16 10:33 04/09/16 05:52 04/12/16 04/13/16 04/14/16 05:59 05:59 05:59 Intake Total 2550 4810 Output Total 1250 925 425 Balance 1300 3885 -425 PT 15.3 SEC (12.0-15.0) H 04/07/16 05:45 INR 1.21 (0.83-1.16) H 04/07/16 05:45 Laboratory Tests 04/08/16 04/09/16 04/10/16 05:27 05:52 10:33 Hgb 8.7 L Ferritin 133.0 Alkaline Phosphatase 187 H Albumin 2.0 L 04/10/16 10:33 Hgb 9.0 L Ferritin Alkaline Phosphatase Albumin - Time Spent With Patient Time Spent With Patient: >35 min Physical Exam - Physical Exam General Appearance: no apparent distress Respiratory: lungs clear Cardiac/Chest: tachycardia Abdomen: distended, No normal bowel sounds (hyperactive), No non-tender ICD10 Worksheet Patient Problems: Problems Problem Status Onset C. difficile diarrhea Acute Cardiac arrest Acute Septic shock Acute Bacteremia Acute Hyponatremia Acute Schizophrenia Acute
[2016-04-13] MEDS ORDERED: LOPERAMIDE HCL 2 MG CAP PO PRN (19:56)
--- NOTE | 2016-04-13 20:05 | SOAPPROG ---
JAYDA Progress Note Assessment/Plan: Assessment/Plan: Autoimmune colitis, due to Ipilimumab. Oncology starting infliximab. - from our standpoint, would continue prednisone 40 mg bid until 04/18. Then, would recommend decreasing to 30 mg bid for one week, then 20 mg bid for one week, then 10 mg bid for one week, then 5 mg bid for one week, then 5 mg daily for one week, then none. However, ok to change per oncology, if they wish taper schedule to be different. - imodium prn diarrhea - agree with a ten day empiric course of vanco; then, can stop - else, as per oncology. I will sign off. Please call if we can be of further help in the future [phone] Thanks! 04/13/16 20:02 Subjective: cc: colitis Three loose stools. No obvious blood reported. No rigors, chills. Objective: Vital Signs Temp Pulse Resp BP Pulse Ox 36.3 C 105 H 16 99/60 L 93 04/13/16 16:00 04/13/16 16:00 04/13/16 16:00 04/13/16 16:00 04/13/16 16:00 Laboratory Results 04/10/16 10:33 04/09/16 05:52 04/12/16 04/13/16 04/14/16 05:59 05:59 05:59 Intake Total 2550 4810 1200 Output Total 6830 028 5445 Balance 1300 3885 25 PT 15.3 SEC (12.0-15.0) H 04/07/16 05:45 INR 1.21 (0.83-1.16) H 04/07/16 05:45 Physical Exam - Physical Exam General Appearance: WD/WN, alert, no apparent distress EENT: PERRL/EOMI, normal ENT inspection, pharynx normal, TMs normal Neck: non-tender, full range of motion, supple, normal inspection Respiratory: chest non-tender, lungs clear, normal breath sounds Cardiac/Chest: normal peripheral pulses, regular rate, rhythm Peripheral Pulses: 2+: carotid (R), carotid (L), femoral (R), femoral (L), dorsalis-pedis (R), dorsalis-pedis (L) Abdomen: normal bowel sounds, non-tender, soft Male Genitalia: deferred Rectal: deferred Back: Normal inspection Skin: normal color, warm/dry Lymphatic: no adenopathy Extremities: normal range of motion, non-tender, normal inspection, normal capillary refill Neuro/Psych: no motor/sensory deficits, alert, normal mood/affect, oriented x 3 ICD10 Worksheet Patient Problems: Problems Problem Status Onset C. difficile diarrhea Acute Cardiac arrest Acute Septic shock Acute Bacteremia Acute Hyponatremia Acute Schizophrenia Acute
[2016-04-13] MEDS: cloZAPine 25 MG TAB PO SCH (20:11)
[2016-04-13] MEDS: ESCITALOPRAM OXALATE 10 MG TAB TUBE SCH (20:11)
[2016-04-13] MEDS: ATORVASTATIN CALCIUM 10 MG TAB PO SCH (20:11)
[2016-04-13] MEDS: MELATONIN 3 MG TAB PO SCH (20:11)
[2016-04-13] MEDS: INSULIN GLARGINE 100 UNITS/ML SYRINGE SC SCH (20:12)
[2016-04-14] MEDS: INSULIN LISPRO 100 UNIT/ML SC SCH ×5 (00:32→20:39)
[2016-04-14] MEDS: ACETAMINOPHEN 325 MG TAB PO PRN ×2 (05:12→18:03)
[2016-04-14] MEDS: VANCOMYCIN 125 MG/2.5 ML UDL PO SCH ×4 (05:12→20:38)
[2016-04-14 06:18] LABS: ALANINE AMINOTRANSFERASE 40 IU/L (21-72); ALBUMIN 2.5 g/dL (3.5-5.0); ALKALINE PHOSPHATASE 173 IU/L (38-126); ANION GAP 6 mEq/L (8-16); ASPARTATE AMINOTRANSFERASE 13 IU/L (17-59); BILIRUBIN,TOTAL 0.5 mg/dL (0.1-1.4); CALCIUM 8.8 mg/dL (8.5-10.4); CARBON DIOXIDE 26 mEq/l (22-31); CHLORIDE 105 mEq/L (97-110); CREATININE 0.6 mg/dL (0.7-1.3); GLOMERULAR FILTRATION RATE > 60; GLUCOSE 159 mg/dL (70-100); POTASSIUM 4.3 mEq/L (3.5-5.2); SODIUM 137 mEq/L (134-144); TOTAL PROTEIN 5.4 g/dL (6.3-8.2)
[2016-04-14 06:22] LABS: % IMMATURE GRANULYOCYTES 0.7 % (0.0-1.1); ABSOLUTE IMMATURE GRANULOCYTES 0.07 10^3/uL (0.00-0.10); ADD DIFF? NO; ADD MORPH? NO; ADD SCAN? NO; ATYPICAL LYMPHOCYTE FLAG 10 (0-99); FRAGMENT RBC FLAG 0 (0-99); HEMATOCRIT 31.5 % (40.0-51.0); HEMOGLOBIN 10.2 g/dL (13.7-17.5); LEFT SHIFT FLG 0 (0-99); LIPEMIA HEMOLYSIS FLAG 80 (0-99); MEAN CELL HEMOGLOBIN CONCENTR. 32.4 g/dL (32.4-36.7); MEAN CELL VOLUME 89.5 fL (81.5-99.8); MEAN PLATELET VOLUME 9.1 fL (8.7-11.7); PLATELET CLUMPS FLAG 0 (0-99); PLATELET COUNT 213 10^3/uL (150-400); RED BLOOD CELL COUNT 3.52 10^6/uL (4.40-6.38); RED CELL DISTRIBUTION WIDTH 15.4 % (11.5-15.2)
[2016-04-14] MEDS: predniSONE 20 MG TAB PO SCH ×2 (09:46→18:03)
[2016-04-14] MEDS: PANTOPRAZOLE SODIUM 40 MG TAB PO SCH (09:50)
[2016-04-14] MEDS: PALIPERIDONE 3 MG TAB.ER PO SCH ×2 (09:50→20:40)
[2016-04-14] MEDS: buPROPion XL 150 MG TAB PO SCH (09:50)
[2016-04-14] MEDS: NICOTINE 14 MG/24 HR PATCH TD SCH (09:51)
[2016-04-14] MEDS: CLOTRIMAZOLE 1% 15 GM CRTUBE TP SCH ×2 (09:54→20:48)
--- NOTE | 2016-04-14 10:02 | HOSPPROG ---
Hospitalist Progress Note Assessment/Plan: DIAGNOSES: # PEA CARDIAC ARREST. # ? 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 -improved but flucutating more, probably mostly due to dietary noncompliance , we are having trouble stopping him from drinking sugar drinks and eating sweats so far here # POSSIBLE ASPIRATION PNEUMONIA. Likely in setting of PEA arrest, present on CXR , s/p Invanz # ACUTE RESPIRATORY FAILURE. # MAKENZIE. 2/2 hypovolemia and ?sepsis, s/p IVF, peak Cr 3.0, resolved # LOWER GI BLEED, POST HEMORRHAGIC ANEMIA. # RUE MELANOMA /RECURRENCE IN THE AXILLA- s/p 2 cycles of Ipilinumab - d/w Dr. 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 However he still is having diarrhea and and crampy abdominal discomfort at this time with ongoing steroid therapy. Will discuss with GI what our expectation should be in terms of pace of improvement, or if there is some other therapy we should come sitter instituting. PLANS: -Continue high-dose steroid; reviewed treatment plan with Gastroenterology -continue IV hydration but will do this intermittently as the tubing bothers him -continue current long-acting insulin dose, will need to titrate further on his pre meal short-acting; he is still not cooperative with a diabetic diet -continue his antipsychotic medicines -follow his bowel function, white and red blood cell counts closely SUBJECTIVE: States he has some abdominal discomfort today and is still having multiple diarrheal stools without blood No chills or sweats VITAL SIGNS: stable without fever EXAM: Wide awake talkative relaxed, not mentioning anything related to hallucinations. Not is delusional today resps not labored lungs clear heart regular abd soft distended, seems nontender no edema joints normal iv site good LABORATORY DATA: sugars still high despite increasing insulin doses each day Objective: Vital Signs Temp Pulse Resp BP Pulse Ox 37.1 C 91 16 110/55 L 91 L 04/14/16 07:44 04/14/16 07:44 04/14/16 07:44 04/14/16 07:44 04/14/16 07:44 Laboratory Results 04/14/16 04:30 04/14/16 04:30 04/13/16 04/14/16 04/15/16 06:59 06:59 06:59 Intake Total 4810 1200 Output Total 925 1175 Balance 3885 25 PT 15.3 SEC (12.0-15.0) H 04/07/16 05:45 INR 1.21 (0.83-1.16) H 04/07/16 05:45 ICD10 Worksheet Patient Problems: Problems Problem Status Onset C. difficile diarrhea Acute Cardiac arrest Acute Septic shock Acute Bacteremia Acute Hyponatremia Acute Schizophrenia Acute
[2016-04-14] MEDS ORDERED: methylPREDNISolone SOD SUCC 125 MG/2 ML VIAL IVP PRN (12:35)
[2016-04-14] MEDS ORDERED: ACETAMINOPHEN 325 MG TAB PO PRN (12:35)
[2016-04-14] MEDS: cloZAPine 100 MG TAB PO SCH ×2 (12:49→20:40)
[2016-04-14] MEDS ORDERED: diphenhydrAMINE 25 MG CAP PO ONE (13:00)
[2016-04-14] MEDS ORDERED: ACETAMINOPHEN 325 MG TAB PO ONE (13:00)
[2016-04-14] MEDS ORDERED: NS IV ONE (13:30)
[2016-04-14] MEDS ORDERED: INFLIXIMAB IV ONE (13:30)
--- NOTE | 2016-04-14 14:57 | SOAPPROG ---
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 Continue current steroids and will probably institute taper similar to outlined by Dr. Rudd starting hopefully later this week although it may change depending on his symptoms. * C diff +: probably contaminate but agree with po vanco while on immunosuppression * Anemia due to hematochezia: consider transfusion if hgb < 8 * Chronic schizophrenia Subjective: Still with mult. large volume loose stools and occ. abd cramping. Father and other friends/family with him. Objective: Vital Signs Temp Pulse Resp BP Pulse Ox 36.4 C 72 17 108/80 95 04/14/16 14:47 04/14/16 14:47 04/14/16 14:47 04/14/16 14:47 04/14/16 14:47 Laboratory Results 04/14/16 04:30 04/14/16 04:30 04/13/16 04/14/16 04/15/16 05:59 05:59 05:59 Intake Total 4810 1200 Output Total 925 1175 Balance 3885 25 PT 15.3 SEC (12.0-15.0) H 04/07/16 05:45 INR 1.21 (0.83-1.16) H 04/07/16 05:45 - Time Spent With Patient Time Spent With Patient: >35 min discussing Remidade and potential toxicities Physical Exam - Physical Exam General Appearance: no apparent distress Respiratory: lungs clear Cardiac/Chest: regular rate, rhythm Abdomen: soft, distended, No normal bowel sounds (hyperactive) ICD10 Worksheet Patient Problems: Problems Problem Status Onset C. difficile diarrhea Acute Cardiac arrest Acute Septic shock Acute Bacteremia Acute Hyponatremia Acute Schizophrenia Acute
[2016-04-14] MEDS: INSULIN GLARGINE 100 UNITS/ML SYRINGE SC SCH (20:38)
[2016-04-14] MEDS: ESCITALOPRAM OXALATE 10 MG TAB TUBE SCH (20:39)
[2016-04-14] MEDS: MELATONIN 3 MG TAB PO SCH (20:40)
[2016-04-14] MEDS: ATORVASTATIN CALCIUM 10 MG TAB PO SCH (20:40)
[2016-04-14] MEDS: cloZAPine 25 MG TAB PO SCH (20:52)
[2016-04-15] MEDS: VANCOMYCIN 125 MG/2.5 ML UDL PO SCH ×4 (05:48→22:10)
[2016-04-15] MEDS: ACETAMINOPHEN 325 MG TAB PO PRN ×2 (06:22→22:07)
[2016-04-15 06:40] LABS: ALANINE AMINOTRANSFERASE 43 IU/L (21-72); ALBUMIN 2.5 g/dL (3.5-5.0); ALKALINE PHOSPHATASE 161 IU/L (38-126); ANION GAP 5 mEq/L (8-16); ASPARTATE AMINOTRANSFERASE 14 IU/L (17-59); BILIRUBIN,TOTAL 0.4 mg/dL (0.1-1.4); CALCIUM 8.7 mg/dL (8.5-10.4); CARBON DIOXIDE 24 mEq/l (22-31); CHLORIDE 107 mEq/L (97-110); CREATININE 0.6 mg/dL (0.7-1.3); GLOMERULAR FILTRATION RATE > 60; GLUCOSE 215 mg/dL (70-100); POTASSIUM 4.3 mEq/L (3.5-5.2); SODIUM 136 mEq/L (134-144); TOTAL PROTEIN 5.4 g/dL (6.3-8.2)
[2016-04-15] MEDS: INSULIN LISPRO 100 UNIT/ML SC SCH ×5 (08:05→22:27)
[2016-04-15] MEDS: predniSONE 20 MG TAB PO SCH ×2 (08:07→18:09)
[2016-04-15] MEDS: NICOTINE 14 MG/24 HR PATCH TD SCH (08:09)
[2016-04-15] MEDS: cloZAPine 100 MG TAB PO SCH ×2 (08:09→22:08)
[2016-04-15] MEDS: PANTOPRAZOLE SODIUM 40 MG TAB PO SCH (08:10)
[2016-04-15] MEDS: PALIPERIDONE 3 MG TAB.ER PO SCH ×2 (08:10→22:08)
[2016-04-15] MEDS: buPROPion XL 150 MG TAB PO SCH (08:10)
[2016-04-15] MEDS: CLOTRIMAZOLE 1% 15 GM CRTUBE TP SCH ×2 (13:45→22:15)
--- NOTE | 2016-04-15 17:34 | HOSPPROG ---
Hospitalist Progress Note Assessment/Plan: DIAGNOSES: # PEA CARDIAC ARREST. # ? 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 -improved but flucutating more, probably mostly due to dietary noncompliance , we are having trouble stopping him from drinking sugar drinks and eating sweats so far here # POSSIBLE ASPIRATION PNEUMONIA. Likely in setting of PEA arrest, present on CXR , s/p Invanz # ACUTE RESPIRATORY FAILURE. # MAKENZIE. , peak Cr 3.0, resolved # LOWER GI BLEED, POST HEMORRHAGIC ANEMIA. # RUE MELANOMA / RECURRENCE IN THE AXILLA- s/p 2 cycles of Ipilinumab - d/w Dr. 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 However he still is having diarrhea and and crampy abdominal discomfort at this time with ongoing steroid therapy and will need to continue that therapy. PLANS: -Continue high-dose steroid, will consider taper as outlined by Dr. Rudd depending on the patient's progress -continue IV hydration to relate replaced GI losses but will do this intermittently as the tubing bothers him -will need to increase insulin doses, and follow sugars closely, continue to encourage patient to stick with diabetic diet -continue his antipsychotic medicines -follow his bowel function, white and red blood cell counts closely SUBJECTIVE: Still having abdominal cramping and nonbloody diarrheal stools Today he still notices some paranoid ideation and voices but these are bothering him much less. It sounds like he is not having visual hallucinations anymore at this point VITAL SIGNS: stable without fever EXAM: Wide awake talkative relaxed, not mentioning anything related to hallucinations. Not delusional today resps not labored lungs clear heart regular abd soft distended, seems nontender no edema joints normal iv site good LABORATORY DATA: sugars still high despite increasing insulin doses Objective: Vital Signs Temp Pulse Resp BP Pulse Ox 36.8 C 87 16 113/65 95 04/15/16 15:33 04/15/16 15:33 04/15/16 15:33 04/15/16 15:33 04/15/16 15:33 Laboratory Results 04/14/16 04:30 04/15/16 06:05 04/14/16 04/15/16 04/16/16 06:59 06:59 06:59 Intake Total 1200 650 780 Output Total 1175 Balance 25 650 780 PT 15.3 SEC (12.0-15.0) H 04/07/16 05:45 INR 1.21 (0.83-1.16) H 04/07/16 05:45 ICD10 Worksheet Patient Problems: Problems Problem Status Onset C. difficile diarrhea Acute Cardiac arrest Acute Septic shock Acute Bacteremia Acute Hyponatremia Acute Schizophrenia Acute
--- NOTE | 2016-04-15 17:45 | SOAPPROG ---
SOAP Progress Note Assessment/Plan: Assessment: * Melanoma w/ mami recurrence, s/p resection and adjuvant Ipilimumab (2 cycles) . No evidence of recurrence. * Severe autoimmune colitis due to Ipilimumab: Not resolving with steroids. Started Infliximab 5mg/kg q2 weeks 04/14/16. Continue current steroids and will probably institute taper similar to outlined by Dr. Rudd starting hopefully later this week although it may change depending on his symptoms. * C dif +: po vanc. * Anemia due to hematochezia: consider transfusion if hgb < 8 * Chronic schizophrenia 04/15/16 17:42 Subjective: S: He feels diarrhea is better today. Still with diffuse abd discomfort. O: VS reviewed. Gen: chronically ill appearing. NAD. Lungs: breathing comfortably. Abd: mildly distended. Selected Entries 04/15/16 15:33 Heart Rate 87 Respiratory 16 Rate Temperature (C) 36.8 C Blood Pressure 113/65 Laboratory Tests 04/14/16 04/15/16 04:30 06:05 WBC 9.80 H Hgb 10.2 L Plt Count 213 Sodium 136 Potassium 4.3 Chloride 107 Carbon Dioxide 24 BUN 19 Creatinine 0.6 L Objective: Vital Signs Temp Pulse Resp BP Pulse Ox 36.8 C 87 16 113/65 95 04/15/16 15:33 04/15/16 15:33 04/15/16 15:33 04/15/16 15:33 04/15/16 15:33 Laboratory Results 04/14/16 04:30 04/15/16 06:05 04/14/16 04/15/16 04/16/16 05:59 05:59 05:59 Intake Total 1200 650 780 Output Total 1175 Balance 25 650 780 PT 15.3 SEC (12.0-15.0) H 04/07/16 05:45 INR 1.21 (0.83-1.16) H 04/07/16 05:45 ICD10 Worksheet Patient Problems: Problems Problem Status Onset C. difficile diarrhea Acute Cardiac arrest Acute Septic shock Acute Bacteremia Acute Hyponatremia Acute Schizophrenia Acute
[2016-04-15] MEDS: ESCITALOPRAM OXALATE 10 MG TAB TUBE SCH (22:07)
[2016-04-15] MEDS: MELATONIN 3 MG TAB PO SCH (22:08)
[2016-04-15] MEDS: ATORVASTATIN CALCIUM 10 MG TAB PO SCH (22:08)
[2016-04-15] MEDS: cloZAPine 25 MG TAB PO SCH (22:09)
[2016-04-15] MEDS: INSULIN GLARGINE 100 UNITS/ML SYRINGE SC SCH (22:27)
[2016-04-16] MEDS: VANCOMYCIN 125 MG/2.5 ML UDL PO SCH ×4 (05:43→22:03)
[2016-04-16] MEDS: predniSONE 20 MG TAB PO SCH ×2 (08:35→18:10)
[2016-04-16] MEDS: INSULIN LISPRO 100 UNIT/ML SC SCH ×7 (08:36→22:09)
[2016-04-16] MEDS: PANTOPRAZOLE SODIUM 40 MG TAB PO SCH (08:36)
[2016-04-16] MEDS: PALIPERIDONE 3 MG TAB.ER PO SCH ×2 (08:36→22:04)
[2016-04-16] MEDS: cloZAPine 100 MG TAB PO SCH ×2 (08:36→22:05)
[2016-04-16] MEDS: NICOTINE 14 MG/24 HR PATCH TD SCH (09:16)
[2016-04-16] MEDS: buPROPion XL 150 MG TAB PO SCH (09:56)
[2016-04-16] MEDS: CLOTRIMAZOLE 1% 15 GM CRTUBE TP SCH ×2 (09:57→22:07)
[2016-04-16] MEDS: ACETAMINOPHEN 325 MG TAB PO PRN (11:44)
--- NOTE | 2016-04-16 15:54 | HOSPPROG ---
Hospitalist Progress Note Assessment/Plan: This patient came to the hospital after a cardiac arrest at [facility] where he lives long-term. He had CPR there by nurse which revived pulse. He was unconscious upon arrival here but did regain consciousness and now is back to normal mentation. He was found to be very dehydrated and have evidence of possible septic shock or other inflammatory syndrome. 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 The rest of his hospital stay after a somewhat lengthy recovery in the ICU his involved treatment of his colitis with high- dose steroid, along with managing exacerbation of his bipolar disorder which has here involved some significant paranoid delusions and hallucinations. There was also some metabolic encephalopathy. At this time he has recovered to the point of very good control of his bipolar disease, complete resolution of his metabolic encephalopathy. He is eating well but still has some loose stools and some mild abdominal cramping but no further bleeding. He is ambulating with a walker but does have some gait instability. He has been followed by the Oncology service and did receive on April 14 a dose of infliximab to trying continue chemotherapy for his melanoma. At this time he is approaching a point where we may be able to discharge him back to [facility] within a day or 2 if he continues to regain mobility. The patient was followed by Gastroenterology and recommendations for a taper of steroid were left in Dr. Stanislaw santiago last note of April 13. Is involved continuing the current 40 mg twice daily through April 18, then decreasing by 10 mg twice daily each week until we 10 mg twice daily, then 5 mg twice daily for a week and 5 mg daily for a week. In addition it was noted that the patient has a past history of C difficile colitis. Did have a C diff positive stool on testing here. However endoscopies showed no evidence of pseudomembranous colitis, and the biopsies were consistent with autoimmune reaction. It is felt that he probably does not have C difficile colitis but hard to differentiate and with his multiple immune suppression is we have kept him on oral vancomycin for the time being. Is anticipated that he should continue oral vancomycin at least until as colitis settles down better and until his steroid doses are much lower. DIAGNOSES: # PEA CARDIAC ARREST. # ? 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 -improved but flucutating more, probably mostly due to dietary noncompliance , we are having trouble stopping him from drinking sugar drinks and eating sweats so far here # POSSIBLE ASPIRATION PNEUMONIA. Likely in setting of PEA arrest, present on CXR , s/p Invanz # ACUTE RESPIRATORY FAILURE. # MAKENZIE. , peak Cr 3.0, resolved # LOWER GI BLEED, POST HEMORRHAGIC ANEMIA. # RUE MELANOMA / RECURRENCE IN THE AXILLA- s/p 2 cycles of Ipilinumab - d/w Dr. 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 However he still is having intermittent diarrhea though that and his abdominal discomfort continue to improve on steroid. he is eating well at this point and getting up and moving around with a walker. He may be ready for transfer back to [facility] but only to review with Oncology before we make specific plans. PLANS: -Continue high-dose steroid, will consider taper as outlined by Dr. Rudd depending on the patient's progress -will need to increase insulin doses, and follow sugars closely, continue to encourage patient to stick with diabetic diet -continue his antipsychotic medicines - Continue increase activity as able SUBJECTIVE: had a loose stool again today but notably less abdominal discomfort makes no mention of any voices or settings in the way of hallucinations today VITAL SIGNS: stable without fever EXAM: Wide awake talkative relaxed, not mentioning anything related to hallucinations. Not delusional today resps not labored lungs clear heart regular abd soft distended, seems nontender no edema joints normal iv site good LABORATORY DATA: sugars still intermittently high but better overall Objective: Vital Signs Temp Pulse Resp BP Pulse Ox 36.8 C 95 18 128/80 H 90 L 04/16/16 07:59 04/16/16 07:59 04/16/16 07:59 04/16/16 07:59 04/16/16 07:59 Laboratory Results 04/14/16 04:30 04/15/16 06:05 04/15/16 04/16/1604/17/17 06:59 06:59 06:59 Intake Total 650 780 Balance 650 780 PT 15.3 SEC (12.0-15.0) H 04/07/16 05:45 INR 1.21 (0.83-1.16) H 04/07/16 05:45 ICD10 Worksheet Patient Problems: Problems Problem Status Onset C. difficile diarrhea Acute Cardiac arrest Acute Septic shock Acute Bacteremia Acute Hyponatremia Acute Schizophrenia Acute
[2016-04-16 17:16] LABS: % IMMATURE GRANULYOCYTES 0.6 % (0.0-1.1); ABSOLUTE IMMATURE GRANULOCYTES 0.09 10^3/uL (0.00-0.10); ADD DIFF? NO; ADD MORPH? NO; ADD SCAN? NO; ATYPICAL LYMPHOCYTE FLAG 0 (0-99); FRAGMENT RBC FLAG 0 (0-99); HEMATOCRIT 37.6 % (40.0-51.0); HEMOGLOBIN 11.9 g/dL (13.7-17.5); LEFT SHIFT FLG 0 (0-99); LIPEMIA HEMOLYSIS FLAG 80 (0-99); MEAN CELL HEMOGLOBIN CONCENTR. 31.6 g/dL (32.4-36.7); MEAN CELL VOLUME 91.5 fL (81.5-99.8); MEAN PLATELET VOLUME 8.7 fL (8.7-11.7); PLATELET CLUMPS FLAG 0 (0-99); PLATELET COUNT 203 10^3/uL (150-400); RED BLOOD CELL COUNT 4.11 10^6/uL (4.40-6.38); RED CELL DISTRIBUTION WIDTH 16.1 % (11.5-15.2)
[2016-04-16 17:33] LABS: ALANINE AMINOTRANSFERASE 41 IU/L (21-72); ALBUMIN 2.9 g/dL (3.5-5.0); ALKALINE PHOSPHATASE 190 IU/L (38-126); ANION GAP 8 mEq/L (8-16); ASPARTATE AMINOTRANSFERASE 18 IU/L (17-59); BILIRUBIN,TOTAL 0.4 mg/dL (0.1-1.4); CALCIUM 9.4 mg/dL (8.5-10.4); CARBON DIOXIDE 24 mEq/l (22-31); CHLORIDE 100 mEq/L (97-110); CREATININE 0.7 mg/dL (0.7-1.3); GLOMERULAR FILTRATION RATE > 60; GLUCOSE 241 mg/dL (70-100); MAGNESIUM 1.9 mg/dL (1.6-2.3); POTASSIUM 5.1 mEq/L (3.5-5.2); SODIUM 132 mEq/L (134-144); TOTAL PROTEIN 5.8 g/dL (6.3-8.2)
[2016-04-16] MEDS: INSULIN GLARGINE 100 UNITS/ML SYRINGE SC SCH (22:02)
[2016-04-16] MEDS: ESCITALOPRAM OXALATE 10 MG TAB PO SCH (22:03)
[2016-04-16] MEDS: MELATONIN 3 MG TAB PO SCH (22:04)
[2016-04-16] MEDS: ATORVASTATIN CALCIUM 10 MG TAB PO SCH (22:04)
[2016-04-16] MEDS: cloZAPine 25 MG TAB PO SCH (22:04)
[2016-04-17] MEDS: ACETAMINOPHEN 325 MG TAB PO PRN (04:53)
[2016-04-17] MEDS: VANCOMYCIN 125 MG/2.5 ML UDL PO SCH ×4 (04:53→21:36)
[2016-04-17 05:51] LABS: ALANINE AMINOTRANSFERASE 43 IU/L (21-72); ALBUMIN 2.7 g/dL (3.5-5.0); ALKALINE PHOSPHATASE 176 IU/L (38-126); ANION GAP 8 mEq/L (8-16); ASPARTATE AMINOTRANSFERASE 14 IU/L (17-59); BILIRUBIN,TOTAL 0.4 mg/dL (0.1-1.4); CARBON DIOXIDE 24 mEq/l (22-31); CHLORIDE 104 mEq/L (97-110); CREATININE 0.6 mg/dL (0.7-1.3); GLOMERULAR FILTRATION RATE > 60; GLUCOSE 160 mg/dL (70-100); MAGNESIUM 1.9 mg/dL (1.6-2.3); POTASSIUM 4.5 mEq/L (3.5-5.2); SODIUM 136 mEq/L (134-144); TOTAL PROTEIN 5.5 g/dL (6.3-8.2)
[2016-04-17] MEDS: INSULIN LISPRO 100 UNIT/ML SC SCH ×7 (08:57→21:36)
[2016-04-17] MEDS: PALIPERIDONE 3 MG TAB.ER PO SCH ×2 (08:58→21:32)
[2016-04-17] MEDS: cloZAPine 100 MG TAB PO SCH ×2 (08:58→21:35)
[2016-04-17] MEDS: PANTOPRAZOLE SODIUM 40 MG TAB PO SCH (08:59)
[2016-04-17] MEDS: predniSONE 20 MG TAB PO SCH ×2 (08:59→17:28)
[2016-04-17] MEDS: NICOTINE 14 MG/24 HR PATCH TD SCH (08:59)
[2016-04-17] MEDS: buPROPion XL 150 MG TAB PO SCH (09:00)
[2016-04-17] MEDS: CLOTRIMAZOLE 1% 15 GM CRTUBE TP SCH ×2 (09:03→21:53)
[2016-04-17] MEDS ORDERED: fentaNYL 100 MCG/2 ML INJ ONE (15:19)
[2016-04-17] MEDS ORDERED: MIDAZOLAM 2 MG/2 ML VIAL ONE (15:19)
--- NOTE | 2016-04-17 15:23 | SOAPPROG ---
SOAP Progress Note Assessment/Plan: Assessment: * Melanoma w/ mami recurrence, s/p resection and adjuvant Ipilimumab (2 cycles) . No evidence of recurrence. * Severe autoimmune colitis due to Ipilimumab: Not resolving with steroids. Started Infliximab 5mg/kg q2 weeks 04/14/16. Continue current steroids and will probably institute taper similar to outlined by Dr. Rudd starting hopefully later this week although it may change depending on his symptoms. - would be due for Remicade 04/28/16 and needs appt with Dr. Bangura for eval a few days prior to that date to make plans for further management * C dif +: po vanc. * Anemia due to hematochezia: consider transfusion if hgb < 8 * Chronic schizophrenia 04/17/16 15:20 Subjective: Feeling better. Less diarrhea per pt and RN. No new complaints. O: VS reviewed. Gen: NAD. Lungs: breathing comfortably. Objective: Vital Signs Temp Pulse Resp BP Pulse Ox 36.4 C 95 16 129/73 H 94 04/17/16 15:14 04/17/16 15:14 04/17/16 15:14 04/17/16 15:14 04/17/16 15:14 Laboratory Results 04/16/16 17:04 04/17/16 04:25 04/16/16 04/17/16 04/18/16 05:59 05:59 05:59 Intake Total 780 950 Output Total 1050 Balance 780 -100 PT 15.3 SEC (12.0-15.0) H 04/07/16 05:45 INR 1.21 (0.83-1.16) H 04/07/16 05:45 ICD10 Worksheet Patient Problems: Problems Problem Status Onset C. difficile diarrhea Acute Cardiac arrest Acute Septic shock Acute Bacteremia Acute Hyponatremia Acute Schizophrenia Acute
--- NOTE | 2016-04-17 18:01 | HOSPPROG ---
Hospitalist Progress Note Assessment/Plan: * PEA arrest - suspect due to hypovolemia * Metastatic melanoma -ipilimumab * Autoimmune colitis due to ipilimumab -s/p infliximab -continue prednisone - eventually start taper * Cdiff -on day 21 of PO vanco -consider DC soon * s/p septic shock vs. 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 -DDAVP Subjective: Better Objective: Vital Signs Temp Pulse Resp BP Pulse Ox 36.4 C 95 16 129/73 H 94 04/17/16 15:14 04/17/16 15:14 04/17/16 15:14 04/17/16 15:14 04/17/16 15:14 Laboratory Results 04/16/16 17:04 04/17/16 04:25 04/16/16 04/17/16 04/18/16 05:59 05:59 05:59 Intake Total 780 950 Output Total 1050 Balance 780 -100 PT 15.3 SEC (12.0-15.0) H 04/07/16 05:45 INR 1.21 (0.83-1.16) H 04/07/16 05:45 - Physical Exam Constitutional: no apparent distress, appears nourished, not in pain Cardiovascular: regular rate and rhythym, no murmur, rub, or gallop Respiratory: no respiratory distress, no rales or rhonchi, clear to auscultation Gastrointestinal: normoactive bowel sounds, soft, non-tender abdomen, no palpable masses Skin: no rashes or abrasions, no fluctuance, no induration Neurologic: AAOx3, sensation intact bilaterally Psychiatric: interacting appropriately, not anxious, not encephalopathic, thought process linear ICD10 Worksheet Patient Problems: Problems Problem Status Onset C. difficile diarrhea Acute Cardiac arrest Acute Septic shock Acute Bacteremia Acute Hyponatremia Acute Schizophrenia Acute
[2016-04-17] MEDS: ESCITALOPRAM OXALATE 10 MG TAB PO SCH (21:28)
[2016-04-17] MEDS: cloZAPine 25 MG TAB PO SCH (21:34)
[2016-04-17] MEDS: ATORVASTATIN CALCIUM 10 MG TAB PO SCH (21:34)
[2016-04-17] MEDS: MELATONIN 3 MG TAB PO SCH (21:35)
[2016-04-17] MEDS: DESMOPRESSIN 0.1 MG TAB PO SCH (21:52)
[2016-04-18] MEDS: ACETAMINOPHEN 325 MG TAB PO PRN ×2 (02:36→21:54)
[2016-04-18] MEDS: VANCOMYCIN 125 MG/2.5 ML UDL PO SCH ×2 (05:41→12:26)
[2016-04-18 06:00] LABS: % IMMATURE GRANULYOCYTES 0.8 % (0.0-1.1); ABSOLUTE IMMATURE GRANULOCYTES 0.16 10^3/uL (0.00-0.10); ADD DIFF? NO; ADD MORPH? NO; ADD SCAN? NO; ATYPICAL LYMPHOCYTE FLAG 10 (0-99); FRAGMENT RBC FLAG 0 (0-99); HEMATOCRIT 35.4 % (40.0-51.0); HEMOGLOBIN 11.3 g/dL (13.7-17.5); LEFT SHIFT FLG 10 (0-99); LIPEMIA HEMOLYSIS FLAG 80 (0-99); MEAN CELL HEMOGLOBIN 28.9 pg (27.9-34.1); MEAN CELL HEMOGLOBIN CONCENTR. 31.9 g/dL (32.4-36.7); MEAN CELL VOLUME 90.5 fL (81.5-99.8); MEAN PLATELET VOLUME 9.2 fL (8.7-11.7); PLATELET CLUMPS FLAG 0 (0-99); PLATELET COUNT 210 10^3/uL (150-400); RED BLOOD CELL COUNT 3.91 10^6/uL (4.40-6.38); RED CELL DISTRIBUTION WIDTH 16.3 % (11.5-15.2)
[2016-04-18 06:11] LABS: ALANINE AMINOTRANSFERASE 41 IU/L (21-72); ALBUMIN 2.8 g/dL (3.5-5.0); ALKALINE PHOSPHATASE 165 IU/L (38-126); ANION GAP 9 mEq/L (8-16); ASPARTATE AMINOTRANSFERASE 17 IU/L (17-59); BILIRUBIN,TOTAL 0.4 mg/dL (0.1-1.4); CALCIUM 9.2 mg/dL (8.5-10.4); CARBON DIOXIDE 23 mEq/l (22-31); CHLORIDE 101 mEq/L (97-110); CREATININE 0.7 mg/dL (0.7-1.3); GLOMERULAR FILTRATION RATE > 60; GLUCOSE 310 mg/dL (70-100); MAGNESIUM 1.8 mg/dL (1.6-2.3); POTASSIUM 4.6 mEq/L (3.5-5.2); SODIUM 133 mEq/L (134-144); TOTAL PROTEIN 5.6 g/dL (6.3-8.2)
--- NOTE | 2016-04-18 08:27 | SOAPPROG ---
JAYDA Progress Note Assessment/Plan: Assessment/Plan: Diarrhea reportedly better, with the addition of remicade. Because of this, will decrease his prednisone to 30 mg p.o. bid (want to avoid steroid side- effects, as well as over-immune compromising with the addition of infliximab). Otherwise, taper schedule as per my last note. Please call if questions [phone]. Thanks! 04/18/16 08:25 Objective: Vital Signs Temp Pulse Resp BP Pulse Ox 36.7 C 102 H 16 130/85 H 92 04/18/16 07:35 04/18/16 07:35 04/18/16 07:35 04/18/16 07:35 04/18/16 07:35 Laboratory Results 04/18/16 04:53 04/18/16 04:53 04/17/16 04/18/16 04/19/16 05:59 05:59 05:59 Intake Total 950 990 Output Total 1050 Balance -100 990 PT 15.3 SEC (12.0-15.0) H 04/07/16 05:45 INR 1.21 (0.83-1.16) H 04/07/16 05:45 ICD10 Worksheet Patient Problems: Problems Problem Status Onset C. difficile diarrhea Acute Cardiac arrest Acute Septic shock Acute Bacteremia Acute Hyponatremia Acute Schizophrenia Acute
[2016-04-18] MEDS: ENOXAPARIN 40 MG/0.4 ML SYR SC SCH (09:14)
[2016-04-18] MEDS: PALIPERIDONE 3 MG TAB.ER PO SCH ×2 (09:15→21:23)
[2016-04-18] MEDS: metFORMIN HCL 500 MG TAB PO SCH ×2 (09:15→18:14)
[2016-04-18] MEDS: buPROPion XL 150 MG TAB PO SCH (09:15)
[2016-04-18] MEDS: cloZAPine 100 MG TAB PO SCH ×2 (09:16→21:23)
[2016-04-18] MEDS: PANTOPRAZOLE SODIUM 40 MG TAB PO SCH (09:16)
[2016-04-18] MEDS: NICOTINE 14 MG/24 HR PATCH TD SCH (09:16)
[2016-04-18] MEDS: CLOTRIMAZOLE 1% 15 GM CRTUBE TP SCH ×2 (09:17→22:41)
[2016-04-18] MEDS: INSULIN LISPRO 100 UNIT/ML SC SCH ×7 (09:17→21:24)
[2016-04-18] MEDS: predniSONE 20 MG TAB PO SCH ×2 (13:46→13:48)
--- NOTE | 2016-04-18 14:14 | SOAPPROG ---
SOAP Progress Note Assessment/Plan: Assessment: SOAP Progress Note Assessment/Plan: Assessment: * Melanoma w/ mami recurrence, s/p resection and adjuvant Ipilimumab (2 cycles) . No evidence of recurrence. * Severe autoimmune colitis due to Ipilimumab: Didn't resolve with steroids, hence, received Infliximab 5mg/kg q2 weeks 04/14/16. Continue current steroids and will probably institute taper similar to outlined by Dr. Rudd starting hopefully later this week although it may change depending on his symptoms. - would be due for Remicade 04/28/16 - when discharged, should follow up with Dr. Bangura early next week, this colitis can flare with steroid taper, will need close ongoing follow up * C dif +: has been on oral vanc * Anemia due to hematochezia: consider transfusion if hgb < 8 * Chronic schizophrenia Subjective: had a formed stool earlier today, diarrhea improved Objective: Vital Signs Temp Pulse Resp BP Pulse Ox 36.7 C 102 H 16 130/85 H 92 04/18/16 07:35 04/18/16 07:35 04/18/16 07:35 04/18/16 07:35 04/18/16 07:35 Laboratory Results 04/18/16 04:53 04/18/16 04:53 04/17/16 04/18/16 04/19/16 05:59 05:59 05:59 Intake Total 950 990 Output Total 1050 Balance -100 990 PT 15.3 SEC (12.0-15.0) H 04/07/16 05:45 INR 1.21 (0.83-1.16) H 04/07/16 05:45 Physical Exam - Physical Exam General Appearance: alert Respiratory: lungs clear Abdomen: soft, other (distended with normal bowel sounds) Extremities: No pedal edema Neuro/Psych: other (feels he is having visual hallucinations) ICD10 Worksheet Patient Problems: Problems Problem Status Onset C. difficile diarrhea Acute Cardiac arrest Acute Septic shock Acute Bacteremia Acute Hyponatremia Acute Schizophrenia Acute
--- NOTE | 2016-04-18 15:59 | HOSPPROG ---
Hospitalist Progress Note Assessment/Plan: * PEA arrest - due to hypovolemia * Metastatic melanoma -ipilimumab * Autoimmune colitis due to ipilimumab -s/p infliximab -continue prednisone - slow taper * Cdiff -on day 21 of PO vanco - okay to DC * s/p septic shock vs. 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 -DDAVP Subjective: now having formed stool Objective: Vital Signs Temp Pulse Resp BP Pulse Ox 36.4 C 104 H 16 126/76 H 96 04/18/16 15:12 04/18/16 15:12 04/18/16 15:12 04/18/16 15:12 04/18/16 15:12 Laboratory Results 04/18/16 04:53 04/18/16 04:53 04/17/16 04/18/16 04/19/16 05:59 05:59 05:59 Intake Total 950 990 Output Total 1050 Balance -100 990 PT 15.3 SEC (12.0-15.0) H 04/07/16 05:45 INR 1.21 (0.83-1.16) H 04/07/16 05:45 - Physical Exam Constitutional: no apparent distress, appears nourished, not in pain Cardiovascular: regular rate and rhythym, no murmur, rub, or gallop Respiratory: no respiratory distress, no rales or rhonchi, clear to auscultation Gastrointestinal: normoactive bowel sounds, soft, non-tender abdomen, no palpable masses Skin: no rashes or abrasions, no fluctuance, no induration Neurologic: AAOx3, sensation intact bilaterally Psychiatric: interacting appropriately, not anxious, not encephalopathic, thought process linear ICD10 Worksheet Patient Problems: Problems Problem Status Onset C. difficile diarrhea Acute Cardiac arrest Acute Septic shock Acute Bacteremia Acute Hyponatremia Acute Schizophrenia Acute
[2016-04-18] MEDS: ESCITALOPRAM OXALATE 10 MG TAB PO SCH (21:19)
[2016-04-18] MEDS: MELATONIN 3 MG TAB PO SCH (21:20)
[2016-04-18] MEDS: DESMOPRESSIN 0.1 MG TAB PO SCH (21:20)
[2016-04-18] MEDS: cloZAPine 25 MG TAB PO SCH (21:21)
[2016-04-18] MEDS: ATORVASTATIN CALCIUM 10 MG TAB PO SCH (21:21)
[2016-04-19] MEDS: HALOPERIDOL LACT 5 MG/ML INJ IVP PRN ×2 (00:36→04:56)
[2016-04-19] MEDS: ACETAMINOPHEN 325 MG TAB PO PRN ×2 (04:47→11:38)
[2016-04-19 05:54] LABS: % IMMATURE GRANULYOCYTES 0.6 % (0.0-1.1); ABSOLUTE IMMATURE GRANULOCYTES 0.12 10^3/uL (0.00-0.10); ADD DIFF? NO; ADD MORPH? NO; ADD SCAN? NO; ATYPICAL LYMPHOCYTE FLAG 10 (0-99); FRAGMENT RBC FLAG 0 (0-99); HEMATOCRIT 33.6 % (40.0-51.0); HEMOGLOBIN 10.9 g/dL (13.7-17.5); LEFT SHIFT FLG 10 (0-99); LIPEMIA HEMOLYSIS FLAG 80 (0-99); MEAN CELL HEMOGLOBIN 29.2 pg (27.9-34.1); MEAN CELL HEMOGLOBIN CONCENTR. 32.4 g/dL (32.4-36.7); MEAN CELL VOLUME 90.1 fL (81.5-99.8); MEAN PLATELET VOLUME 8.7 fL (8.7-11.7); PLATELET CLUMPS FLAG 0 (0-99); PLATELET COUNT 155 10^3/uL (150-400); RED BLOOD CELL COUNT 3.73 10^6/uL (4.40-6.38); RED CELL DISTRIBUTION WIDTH 16.3 % (11.5-15.2)
[2016-04-19 06:08] LABS: ALANINE AMINOTRANSFERASE 39 IU/L (21-72); ALBUMIN 2.6 g/dL (3.5-5.0); ALKALINE PHOSPHATASE 165 IU/L (38-126); ANION GAP 8 mEq/L (8-16); ASPARTATE AMINOTRANSFERASE 13 IU/L (17-59); BILIRUBIN,TOTAL 0.5 mg/dL (0.1-1.4); CALCIUM 8.8 mg/dL (8.5-10.4); CARBON DIOXIDE 22 mEq/l (22-31); CHLORIDE 101 mEq/L (97-110); CREATININE 0.6 mg/dL (0.7-1.3); GLOMERULAR FILTRATION RATE > 60; GLUCOSE 183 mg/dL (70-100); MAGNESIUM 1.5 mg/dL (1.6-2.3); POTASSIUM 4.1 mEq/L (3.5-5.2); SODIUM 131 mEq/L (134-144); TOTAL PROTEIN 5.2 g/dL (6.3-8.2)
[2016-04-19] MEDS: INSULIN LISPRO 100 UNIT/ML SC SCH ×4 (08:47→12:29)
[2016-04-19] MEDS: PALIPERIDONE 3 MG TAB.ER PO SCH (08:54)
[2016-04-19] MEDS: cloZAPine 100 MG TAB PO SCH (08:58)
[2016-04-19] MEDS: predniSONE 20 MG TAB PO SCH (09:44)
[2016-04-19] MEDS: PANTOPRAZOLE SODIUM 40 MG TAB PO SCH (09:44)
[2016-04-19] MEDS: metFORMIN HCL 500 MG TAB PO SCH (09:46)
[2016-04-19] MEDS: NICOTINE 14 MG/24 HR PATCH TD SCH (09:47)
[2016-04-19] MEDS: buPROPion XL 150 MG TAB PO SCH (09:47)
[2016-04-19] MEDS: ENOXAPARIN 40 MG/0.4 ML SYR SC SCH (09:48)
[2016-04-19] MEDS: CLOTRIMAZOLE 1% 15 GM CRTUBE TP SCH ×2 (09:51→14:20)
--- NOTE | 2016-04-19 11:24 | PDIAF ---
- Diagnosis Diagnosis: autoimmune colitis due to immunotherapy, PEA arrest due to severe hypovol. Code Status: Full Code - Medication Management Discharge Medications: Medications to Continue on Transfer Betamethasone/Propylene Glyc [Betamethasone Dp Aug 0.05% Crm] 1 emery TP Q12 PRN 01/28/16 [Last Taken Unknown] Desmopressin [DDAVP 0.1 mg (*)] 0.2 mg PO HS 01/28/16 [Last Taken 03/25/16] Escitalopram Oxalate [Lexapro] 20 mg PO HS 01/28/16 [Last Taken 03/25/16] Ibuprofen [Motrin (*)] 400 mg PO DAILY PRN 01/28/16 [Last Taken 01/27/16 09:41] Metformin HCl 500 mg PO BIDMEAL 01/28/16 [Last Taken 03/25/16] Levasy-3 Fatty Acids [Fish Oil 1000 mg (*)] 1,000 mg PO BID 01/28/16 [Last Taken 03/25/16] Omeprazole [Prilosec 20 mg] 20 mg PO DAILY 01/28/16 [Last Taken 03/25/16] Simvastatin [Zocor] 20 mg PO HS 01/28/16 [Last Taken 03/25/16] buPROPion XL [Wellbutrin 150mg XL] 300 mg PO DAILY 01/28/16 [Last Taken 03/25/16 ] cloZAPine [Clozaril (*)] 200 mg PO DAILY 01/28/16 [Last Taken 03/25/16] Clotrimazole 1% [Lotrimin 1%] 1 emery TP BID 03/26/16 [Last Taken 03/25/16] Ergocalciferol (Vitamin D2) [Vitamin D2] 50,000 unit PO Q30D 03/26/16 [Last Taken Unknown] Herbals/Supplements -Info Only 1 ea PO DAILY 03/26/16 [Last Taken Unknown] Paliperidone [Invega 9mg ER (*)] 9 mg PO BID 03/26/16 [Last Taken 03/25/16] cloZAPine [Clozaril (*)] 250 mg PO HS 03/26/16 [Last Taken 03/25/16] Loperamide HCl [Imodium 2 mg (*)] 2 mg PO QID PRN #0 cap 04/19/16 [Last Taken Unknown] predniSONE 30 mg PO BIDMEAL #0 tablet 04/19/16 [Last Taken Unknown] Discharge Medications: Refer to the Discharge Home Medication list for PRN reason. - Orders Services needed: Registered Nurse, Physical Therapy, Occupational Therapy, Speech Language Pathologist Diet Texture: Regular Texture Diet, Thin Liquids, Meds Whole w/Liquids Additional: prednisone 30 mg bid for one week, then 20 mg bid for one week, then 10 mg bid for one week, then 5 mg bid for one week, then 5 mg daily for one week, then none. - Follow Up Care Current Providers and Referrals: JOURDAN TRIANA [Primary Care Provider] - As per Instructions
[2016-04-19 11:44] VITALS: PULSE 96; RESP 18; TEMP 98; O2SAT 95
[2016-04-19 11:47] VITALS: BP 125/71
[2016-04-19] MEDS ORDERED: hydrOXYzine HCL 25 MG TAB PO ONE (14:00)
--- NOTE | 2016-04-19 18:37 | GDS ---
[f rep st] DISCHARGE SUMMARY DISCHARGE DIAGNOSES: 1. Autoimmune colitis due to ipilimumab. 2. Metastatic melanoma. 3. Pulseless electrical activity arrest due to hypovolemia. 4. Clostridium difficile colitis. 5. Status post septic shock versus systemic inflammatory response syndrome. 6. Acute respiratory failure requiring intubation. 7. Schizoaffective disorder. 8. Diabetes type 2. 9. Metabolic encephalopathy. 10. Acute renal failure. 11. 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 HISTORY: The patient is a 56-year-old male who lives at [facility]. He has metastatic melanoma and is receiving immunotherapy. He developed severe diarrhea as a complication of this and went to the nursing station at [facility] and collapsed in front of the nurses. They found him to be pulseless and initiated CPR. 911 was called and he was brought to the emergency room. His arrest was quite brief and we feel it was likely a PEA arrest due to severe hypovolemia from his diarrhea. He was co oled per [facility] protocol and then extubated and has had return to his normal mental status. He was fo und to have extensive colitis which is due to a combination of an autoimmune colitis from his immuno therapy and C diff colitis. He was initiated on oral vancomycin as well as steroids. Colitis lucrecia nued quite significantly so he also received Remicade. He will now continue a slow prednisone taper . Diarrhea has improved and he is stable to return to [facility]. He received 21 days of oral vanc omycin during this hospitalization. I do not think he needs anything further, so it has been discon tinued. DISCHARGE MEDICATIONS: Please see computer record for full detailed list. New medications: 1. Prednisone 30 mg p.o. b.i.d. 2. Imodium 2 mg 4 times a day as needed. ADDITIONAL DISCHARGE INSTRUCTIONS: 1. Return to [facility] with PT/OT and speech therapy until he rehabs back to his baseline status. 2. Prednisone taper 30 mg p.o. b.i.d. for 1 week, then 20 mg p.o. b.i.d. for 1 week, then 10 mg p.o . b.i.d. for 1 week, then 5 mg p.o. b.i.d. for 1 week, then 5 mg p.o. daily for 1 week and then disc ontinue. 3. Follow up with Oncology regarding further treatment for metastatic melanoma. Greater than 30 minutes' time was spent arranging this discharge. Patient seen and examined by me leonardo garcia the day of discharge. /[id number]/MODL
--- NOTE | 2016-04-23 15:03 | PQFORM ---
PHYSICIAN QUERY FORM Needs Your Response This query form is being sent to you to assure this patient record is coded properly. Please respond to the question below: COTTON STOMPER QUESTION: Dear Dr. Lunsford, It is documented in the H&P that this patient has the diagnosis of ' healthcare associated pneumonia' with the continued treatment of cefepime. CT of chest shows possible small right sided infiltrate. Hospitalist progress notes dated 03/26-04/16 documents the patient has the diagnosis of 'possible aspiration pneumonia in the setting of PEA arrest, present on CXR.'. [facility] progress notes dated 03/27-04/03 documents the patient has the diagnosis of 'PNA-possible aspiration, continue cefepime'. There were 'patchy bilateral lower lobe opacities, suspect right lower lobe pneumonia' noted on the 03/26 chest x-ray. After study, should the diagnosis of 'Aspiration pneumonia' be included in the Discharge summary? Yes x No Other more appropriate diagnosis Unable to determine Thank you ROSELYN Prater HIM/Coding Dept. [phone] INSTRUCTIONS FOR RESPONSE: Answer question by clicking on the "Edit Document" button. Move cursor to area below the stars. When complete, hit "Save." Click on the "Sign" button, then click "Sign" again. Type in your PIN and hit "Enter." MTDD
== END 2016-04-19 14:34 | DRG 871 ==
LOC: EDUNIT# → F2N 03:30 → F3E 04-03 15:46
PROVIDERS: ADMIT Internal Medicine; ATTEND Internal Medicine
PROC: 5A1945Z Respiratory Ventilation, 24-96 Consecutive Hours (ICD-10-PCS; principal; 2016-03-26)
PROC: 0BH17EZ Insertion of Endotracheal Airway into Trachea, Via Natural or Artificial Opening (ICD-10-PCS; principal; 2016-03-26)
PROC: 0DBE8ZX Excision of Large Intestine, Via Natural or Artificial Opening Endoscopic, Diagnostic (ICD-10-PCS; 2016-04-08)
DX: A41.9 Sepsis, unspecified organism (principal); I46.9 Cardiac arrest, cause unspecified; K52.1 Toxic gastroenteritis and colitis; J96.00 Acute respiratory failure, unspecified whether with hypoxia or hypercapnia; J69.0 Pneumonitis due to inhalation of food and vomit; G93.49 Other encephalopathy; R65.21 Severe sepsis with septic shock; C77.3 Secondary and unspecified malignant neoplasm of axilla and upper limb lymph nodes; A04.7 Enterocolitis due to Clostridium difficile; N17.9 Acute kidney failure, unspecified; E87.1 Hypo-osmolality and hyponatremia; K51.00 Ulcerative (chronic) pancolitis without complications; T45.1X5A Adverse effect of antineoplastic and immunosuppressive drugs, initial encounter; K21.9 Gastro-esophageal reflux disease without esophagitis; J44.9 Chronic obstructive pulmonary disease, unspecified; E78.5 Hyperlipidemia, unspecified; E86.1 Hypovolemia; E11.9 Type 2 diabetes mellitus without complications; F25.1 Schizoaffective disorder, depressive type; R40.2431 Glasgow coma scale score 3-8, in the field [EMT or ambulance]; R63.1 Polydipsia; Z85.820 Personal history of malignant melanoma of skin; Z82.49 Family history of ischemic heart disease and other diseases of the circulatory system; Z86.718 Personal history of other venous thrombosis and embolism; Z79.84 Long term (current) use of oral hypoglycemic drugs
CPT/HCPCS: 80305; 82947-QW; 92526-GN; 92610-GN; 96374; 97110-GP; 97116-GP; 97163-GP; 97165-GO; 97530-GO; 97530-GP; 97535-GO; G0480; G8978-GP-CK; G8978-GP-CM; G8979-GP-CI; G8979-GP-CK; G8987-GO-CL; G8987-GO-CM; G8988-GO-CJ; G8996-GN-CH; G8996-GN-CJ; G8997-GN-CH; G8998-GN-CH; J0692; J1335; J1650; J1745; J1815; J2250; J2405; J2704; J3010; J3370; Q9967

== ENCOUNTER 2016-04-22 00:15 | Inpatient (IN) | payer OTHER, MEDICAID ==
--- NOTE | 2016-04-22 00:40 | CPEKG ---
Heart Rate: 88 RR Interval: 682 P-R Interval: 156 QRSD Interval: 88 QT Interval: 376 QTC Interval: 455 P Minden: 45 QRS Minden: 90 T Wave Minden: 62 EKG Severity - OTHERWISE NORMAL ECG - EKG Impression: SINUS RHYTHM EKG Impression: BORDERLINE RIGHT AXIS DEVIATION Electronically Signed By: Woodrow Oneil 23-Apr-2016 15:10:37
--- NOTE | 2016-04-22 00:43 | EDPHY ---
H & P Stated Complaint: INCREASED WEAKNESS, LOW SODIUM HPI/ROS: HPI CHIEF COMPLAINT: Generalized weakness, hyponatremia HISTORY OF PRESENT ILLNESS: This patient is a 56-year-old male significant past medical history for malignant melanoma, schizoaffective disorder, psychogenic polydipsia with hyponatremia, DVT, OA, diabetes, PE a cardiac arrest lives at [facility], presents to the emergency room by EMS for generalized weakness and concern of hyponatremia by lab draw all at [facility] with a sodium recorded at 1:24 a.m.. Patient upon arrival here in emergency room appears well nontoxic no acute distress he is acting at his neurological baseline he does complain of global weakness. He denies chest pain, shortness of breath, nausea, vomiting, abdominal pain. Of note prior to arrival to the emergency room a safest was able to establish an IV in this patient and they gave him 2 L of normal saline reported by EMS to me. Past Medical History: PA cardiac arrest, schizoaffective disorder, malignant melanoma, hyponatremia due to polydipsia, DVT, awake, reflux, diabetes Past Surgical History: No recent pertinent surgical history Social History: lives at [facility] Family History: noncontributory ROS REVIEW OF SYSTEMS: A comprehensive 10 point review of systems is otherwise negative aside from elements mentioned in the history of present illness. Exam Constitutional appears well nontoxic, triage nursing summary reviewed, vital signs reviewed, awake/alert. Eyes normal conjunctivae and sclera, EOMI, PERRLA. dysconjugate gaze HENT normal inspection, atraumatic, moist mucus membranes, no epistaxis, neck supple/ no meningismus, no raccoon eyes. Respiratory clear to auscultation bilaterally, normal breath sounds, no respiratory distress, no wheezing. Cardiovascular rate normal, regular rhythm, no murmur, no edema, distal pulses normal. Gastrointestinal soft, non-tender, no rebound, no guarding, normal bowel sounds, no distension, no pulsatile mass. Genitourinary no CVA tenderness. Musculoskeletal no midline vertebral tenderness, full range of motion, no calf swelling, no tenderness of extremities, no meningismus, good pulses, neurovascularly intact. Skin pink, warm, & dry, no rash, skin atraumatic. Neurologic awake, alert and oriented x 3, AAOx3, moves all 4 extremities equally, motor intact, sensory intact, CN II-XII intact, normal cerebellar, normal vision, normal speech. Psychiatric normal mood/affect. Heme/Lymph/Immune no lymphadenopathy. Differential Diagnosis: Includes but is not limited to in a particular order generalized weakness induced by severe electrolyte abnormality specifically hyponatremia, euvolemic hyponatremia, psychogenic polydipsia, dehydration, electrolyte disturbance, sepsis Medical Decision Making: Plan for this patient had an IV established obtain blood work, including sodium level, we will hold off on IV fluid at this time as reported to me by EMS that the patient did receive 2 L of normal saline prior to arrival. Check EKG. Re-evaluation: EKG interpretation by me on record in [facility] system. Impression time of EKG 0039, this is sinus rhythm rate of 88, I do not appreciate acute ischemic changes specifically no ST elevation, ST depression, T-wave abnormalities prolonged intervals. 0210: Re-evaluation at this time patient is resting comfortably. No complaints. Sodium is low 125 for this reason he will be admitted to the hospital. 0210: Spoke with Dr. Kang who agrees to admit this patient for generalized weakness hyponatremia. Source: Patient - Personal History Current Tetanus/Diphtheria Vaccine: Yes Current Tetanus Diphtheria and Acellular Pertussis (TDAP): Yes - Medical/Surgical History Hx Asthma: No Hx Chronic Respiratory Disease: No Hx Diabetes: No Hx Cardiac Disease: No Hx Renal Disease: No Hx Cirrhosis: No Hx Alcoholism: No Hx HIV/AIDS: No Hx Splenectomy or Spleen Trauma: No Other PMH: schitzo affective, GERD, melenoma, DM, DVT, smoker, M.I. - Social History Smoking Status: Current every day smoker Constitutional: Initial Vital Signs Temperature (C) 36.6 C 04/22/16 00:15 Heart Rate 87 04/22/16 00:15 Respiratory Rate 18 04/22/16 00:15 Blood Pressure 139/77 H 04/22/16 00:15 O2 Sat (%) 91 L 04/22/16 00:15 O2 Delivery Mode Room Air Allergies/Adverse Reactions: lorazepam [From Ativan] Allergy (Intermediate, Verified 04/22/16 00:27) Other-Enter Comments Home Medications: Medication Instructions Recorded Betamethasone/Propylene Glyc 1 emery TP Q12 PRN 01/28/16 [Betamethasone Dp Aug 0.05% Crm] Desmopressin [DDAVP 0.1 mg (*)] 0.2 mg PO HS 01/28/16 Escitalopram Oxalate [Lexapro] 20 mg PO HS 01/28/16 Ibuprofen [Motrin (*)] 400 mg PO DAILY PRN 01/28/16 Metformin HCl 500 mg PO BIDMEAL 01/28/16 [place]-3 Fatty Acids [Fish Oil 1000 1,000 mg PO BID 01/28/16 mg (*)] Omeprazole [Prilosec 20 mg] 20 mg PO DAILY 01/28/16 Simvastatin [Zocor] 20 mg PO HS 01/28/16 buPROPion XL [Wellbutrin 150mg XL] 300 mg PO DAILY 01/28/16 cloZAPine [Clozaril (*)] 200 mg PO DAILY 01/28/16 Clotrimazole 1% [Lotrimin 1%] 1 emery TP BID 03/26/16 Ergocalciferol (Vitamin D2) 50,000 unit PO Q30D 03/26/16 [Vitamin D2] Herbals/Supplements -Info Only 1 ea PO DAILY 03/26/16 Paliperidone [Invega 9mg ER (*)] 9 mg PO BID 03/26/16 cloZAPine [Clozaril (*)] 250 mg PO HS 03/26/16 Loperamide HCl [Imodium 2 mg (*)] 2 mg PO QID PRN #0 cap 04/19/16 predniSONE 30 mg PO BIDMEAL #0 tablet 04/19/16 Medical Decision Making - Data Points Laboratory Results: Laboratory Results 04/22/16 01:30 04/22/16 01:30 04/22/16 04/22/16 04/22/16 01:30 01:30 01:30 WBC 13.97 10^3/uL H 10^3/uL (3.80-9.50) RBC 3.40 10^6/uL L 10^6/uL (4.40-6.38) Hgb 10.0 g/dL L g/dL (13.7-17.5) Hct 30.7 % L % (40.0-51.0) MCV 90.3 fL fL (81.5-99.8) MCH 29.4 pg pg (27.9-34.1) MCHC 32.6 g/dL g/dL (32.4-36.7) RDW 15.8 % H % (11.5-15.2) Plt Count 161 10^3/uL 10^3/uL (150-400) MPV 8.7 fL fL (8.7-11.7) Neut % (Auto) 88.3 % H % (39.3-74.2) Lymph % (Auto) 6.7 % L % (15.0-45.0) [place] % (Auto) 4.4 % L % (4.5-13.0) Eos % (Auto) 0.0 % L % (0.6-7.6) Baso % (Auto) 0.1 % L % (0.3-1.7) Nucleat RBC Rel Count 0.0 % % (0.0-0.2) Absolute Neuts (auto) 12.34 10^3/uL H 10^3/uL (1.70-6.50) Absolute Lymphs (auto) 0.94 10^3/uL L 10^3/uL (1.00-3.00) Absolute Monos (auto) 0.61 10^3/uL 10^3/uL (0.30-0.80) Absolute Eos (auto) 0.00 10^3/uL L 10^3/uL (0.03-0.40) Absolute Basos (auto) 0.01 10^3/uL L 10^3/uL (0.02-0.10) Absolute Nucleated RBC 0.00 10^3/uL 10^3/uL (0-0.01) Immature Gran % 0.5 % % (0.0-1.1) Immature Gran # 0.07 10^3/uL 10^3/uL (0.00-0.10) PT 13.5 SEC SEC (12.0-15.0) INR 1.04 (0.83-1.16) APTT 24.9 SEC SEC (23.0-38.0) Sodium 125 mEq/L L mEq/L (134-144) Potassium 4.3 mEq/L mEq/L (3.5-5.2) Chloride 97 mEq/L mEq/L (97-110) Carbon Dioxide 22 mEq/l mEq/l (22-31) Anion Gap 6 mEq/L L mEq/L (8-16) BUN 29 mg/dL H mg/dL (7-23) Creatinine 0.6 mg/dL L mg/dL (0.7-1.3) Estimated GFR > 60 Glucose 200 mg/dL H mg/dL (70-100) Calcium 8.4 mg/dL L mg/dL (8.5-10.4) Total Bilirubin 0.5 mg/dL mg/dL (0.1-1.4) Conjugated Bilirubin 0.5 mg/dL mg/dL (0.0-0.5) Unconjugated Bilirubin 0.0 mg/dL mg/dL (0.0-1.1) AST 14 IU/L L IU/L (17-59) ALT 40 IU/L IU/L (21-72) Alkaline Phosphatase 156 IU/L H IU/L (38-126) Total Protein 5.1 g/dL L g/dL (6.3-8.2) Albumin 2.6 g/dL L g/dL (3.5-5.0) Lipase 504.0 IU/L H IU/L (23-300) Departure - Departure Disposition: [facility] Inpatient Acute Clinical Impression: Generalized weakness, Hyponatremia Condition: Fair Referrals: JOURDAN TRIANA [Primary Care Provider] - As per Instructions
[2016-04-22 01:50] LABS: % IMMATURE GRANULYOCYTES 0.5 % (0.0-1.1); ABSOLUTE IMMATURE GRANULOCYTES 0.07 10^3/uL (0.00-0.10); ADD DIFF? NO; ADD MORPH? NO; ADD SCAN? NO; ATYPICAL LYMPHOCYTE FLAG 0 (0-99); FRAGMENT RBC FLAG 0 (0-99); HEMATOCRIT 30.7 % (40.0-51.0); LEFT SHIFT FLG 0 (0-99); LIPEMIA HEMOLYSIS FLAG 80 (0-99); MEAN CELL HEMOGLOBIN 29.4 pg (27.9-34.1); MEAN CELL HEMOGLOBIN CONCENTR. 32.6 g/dL (32.4-36.7); MEAN CELL VOLUME 90.3 fL (81.5-99.8); MEAN PLATELET VOLUME 8.7 fL (8.7-11.7); PLATELET CLUMPS FLAG 0 (0-99); PLATELET COUNT 161 10^3/uL (150-400); RED CELL DISTRIBUTION WIDTH 15.8 % (11.5-15.2)
[2016-04-22 02:01] LABS: ALANINE AMINOTRANSFERASE 40 IU/L (21-72); ALBUMIN 2.6 g/dL (3.5-5.0); ALKALINE PHOSPHATASE 156 IU/L (38-126); ANION GAP 6 mEq/L (8-16); ASPARTATE AMINOTRANSFERASE 14 IU/L (17-59); BILIRUBIN,TOTAL 0.5 mg/dL (0.1-1.4); BILIRUBIN-CONJUGATED 0.5 mg/dL (0.0-0.5); CALCIUM 8.4 mg/dL (8.5-10.4); CARBON DIOXIDE 22 mEq/l (22-31); CHLORIDE 97 mEq/L (97-110); CREATININE 0.6 mg/dL (0.7-1.3); GLOMERULAR FILTRATION RATE > 60; GLUCOSE 200 mg/dL (70-100); POTASSIUM 4.3 mEq/L (3.5-5.2); SODIUM 125 mEq/L (134-144); TOTAL PROTEIN 5.1 g/dL (6.3-8.2)
[2016-04-22 02:05] LABS: APTT 24.9 SEC (23.0-38.0); INR 1.04 (0.83-1.16); PROTIME(PATIENT) 13.5 SEC (12.0-15.0)
[2016-04-22] MEDS ORDERED: ONDANSETRON DISINTEGRATING 4 MG TAB PO PRN (02:50)
[2016-04-22] MEDS ORDERED: ALBUTEROL 3 ML DEYVIAL IH PRN (02:50)
[2016-04-22] MEDS ORDERED: ONDANSETRON 4 MG/2 ML VIAL IVP PRN (02:50)
[2016-04-22] MEDS ORDERED: D50W 25 GM/50 ML SYR IVP PRN (03:04)
--- NOTE | 2016-04-22 03:22 | PDGENHP ---
History and Physical - Chief Complaint generalized weakness - History of Present Illness Patient a 56-year-old male with schizoaffective disorder, dm 2, chronic hyponatremia, metastatic melanoma and recent hospitalization to [facility] for a brief PEA arrest which was presumed to be secondary to hypovolemia from profound diarrhea. 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 During that hospitalization, he completed HACA protocol post-arrest, was treated for C diff colitis with PO vanc, and initiated on steroids for the autoimmune colitis. By time of discharge on 04/19, patient had returned to his baseline mental status and diarrhea had resolved. He was discharged with plan for steroid taper with plan for close outpatient follow up. Today, patient sent back to the ED from [facility] for increased lethargy. Labs were check at [facility] and revealed hyponatremia to 124. An IV was established and he was given 2L of normal saline prior to transport to [facility]. On my evaluation , patient is lethargic, but answering all questions appropriately and is nonfocal. He states last BM was yesterday morning, was normal stool. He also denies any abdominal pain, nausea or vomiting. He does report poor PO intake and complains of profound fatigue and generalized weakness, but denies any fevers, chills, shortness of breath, cough, chest pain or dysuria. On arrival to the ED, patient is afebrile and hemodynamically stable. Labs revealed hyponatremia to 125, normal CBC and normal other electrolytes. He was then admitted to the hospitalist service for further management. History Information - Allergies/Home Medication List Allergies/Adverse Reactions: lorazepam [From Ativan] Allergy (Intermediate, Verified 04/22/16 00:27) Other-Enter Comments Home Medications: Betamethasone/Propylene Glyc [Betamethasone Dp Aug 0.05% Crm] 1 emery TP Q12 PRN 01/28/16 [Last Taken Unknown] Desmopressin [DDAVP 0.1 mg (*)] 0.2 mg PO HS 01/28/16 [Last Taken 03/25/16] Escitalopram Oxalate [Lexapro] 20 mg PO HS 01/28/16 [Last Taken 03/25/16] Ibuprofen [Motrin (*)] 400 mg PO DAILY PRN 01/28/16 [Last Taken 01/27/16 09:41] Metformin HCl 500 mg PO BIDMEAL 01/28/16 [Last Taken 03/25/16] [place]-3 Fatty Acids [Fish Oil 1000 mg (*)] 1,000 mg PO BID 01/28/16 [Last Taken 03/25/16] Omeprazole [Prilosec 20 mg] 20 mg PO DAILY 01/28/16 [Last Taken 03/25/16] Simvastatin [Zocor] 20 mg PO HS 01/28/16 [Last Taken 03/25/16] buPROPion XL [Wellbutrin 150mg XL] 300 mg PO DAILY 01/28/16 [Last Taken 03/25/16 ] cloZAPine [Clozaril (*)] 200 mg PO DAILY 01/28/16 [Last Taken 03/25/16] Clotrimazole 1% [Lotrimin 1%] 1 emery TP BID 03/26/16 [Last Taken 03/25/16] Ergocalciferol (Vitamin D2) [Vitamin D2] 50,000 unit PO Q30D 03/26/16 [Last Taken Unknown] Herbals/Supplements -Info Only 1 ea PO DAILY 03/26/16 [Last Taken Unknown] Paliperidone [Invega 9mg ER (*)] 9 mg PO BID 03/26/16 [Last Taken 03/25/16] cloZAPine [Clozaril (*)] 250 mg PO HS 03/26/16 [Last Taken 03/25/16] I have personally reviewed and updated: family history, medical history, social history, surgical history - Past Medical History Additional medical history: metastatic melanoma of R groin s/p resection, undergoing chemotherapy. 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 c diff colitis, s/p completion of PO vanco course. h/o PEA arrest due to hypovolemia ( 03/26/2016). schizoaffective disorder. chronic hyponatremia due to psychogenic polydipsia. OA. GERD. DM2. h/o DVT - Surgical History Additional surgical history: hernia repair. melanoma resection - Family History Positive for: non-pertinent - Social History Smoking Status: Current every day smoker Alcohol Use: None Drug Use: None Additional social history: Patient has lived in [facility] for past 2 years. Father is alive and lives in [place]. Review of Systems ROS: 10pt was reviewed & negative except for what was stated in HPI & below Physical Exam Temp Pulse Resp BP Pulse Ox 36.6 C 83 16 144/73 H 98 04/22/16 00:15 04/22/16 02:30 04/22/16 02:30 04/22/16 02:30 04/22/16 02:30 O2 (L/minute) 2 Constitutional: no apparent distress, not in pain, chronically ill appearing Eyes: PERRL, anicteric sclera, EOMI Ears, Nose, Mouth, Throat: moist mucous membranes, hearing normal, ears appear normal, no oral mucosal ulcers Cardiovascular: regular rate and rhythym, no murmur, rub, or gallop, pulses symmetric bilaterally, edema (1+ pitting edema bilaterally), No JVD Peripheral Pulses: 2+: dorsalis-pedis (R), dorsalis-pedis (L) Respiratory: no respiratory distress, no rales or rhonchi, clear to auscultation Gastrointestinal: normoactive bowel sounds, soft, non-tender abdomen, no palpable masses, distension (mild distention, soft, nontender) Genitourinary: no bladder fullness, no bladder tenderness Skin: warm, normal color, no rashes or abrasions, no fluctuance, no induration, No mottled Musculoskeletal: full muscle strength, no muscle tenderness, normal joint ROM, no joint effusions Neurologic: AAOx3, sensation intact bilaterally, CN II-XII Intact, No weakness, No numbness, No pronator drift, No facial droop Psychiatric: interacting appropriately, not anxious, not encephalopathic, thought process linear Lab Data & Imaging Review 04/22/16 01:30 04/22/16 01:30 WBC 13.97 10^3/uL (3.80-9.50) H 04/22/16 01:30 RBC 3.40 10^6/uL (4.40-6.38) L 04/22/16 01:30 Hgb 10.0 g/dL (13.7-17.5) L 04/22/16 01:30 Hct 30.7 % (40.0-51.0) L 04/22/16 01:30 MCV 90.3 fL (81.5-99.8) 04/22/16 01:30 MCH 29.4 pg (27.9-34.1) 04/22/16 01:30 MCHC 32.6 g/dL (32.4-36.7) 04/22/16 01:30 RDW 15.8 % (11.5-15.2) H 04/22/16 01:30 Plt Count 161 10^3/uL (150-400) 04/22/16 01:30 MPV 8.7 fL (8.7-11.7) 04/22/16 01:30 Neut % (Auto) 88.3 % (39.3-74.2) H 04/22/16 01:30 Lymph % (Auto) 6.7 % (15.0-45.0) L 04/22/16 01:30 [place] % (Auto) 4.4 % (4.5-13.0) L 04/22/16 01:30 Eos % (Auto) 0.0 % (0.6-7.6) L 04/22/16 01:30 Baso % (Auto) 0.1 % (0.3-1.7) L 04/22/16 01:30 Nucleat RBC Rel Count 0.0 % (0.0-0.2) 04/22/16 01:30 Absolute Neuts (auto) 12.34 10^3/uL (1.70-6.50) H 04/22/16 01:30 Absolute Lymphs (auto) 0.94 10^3/uL (1.00-3.00) L 04/22/16 01:30 Absolute Monos (auto) 0.61 10^3/uL (0.30-0.80) 04/22/16 01:30 Absolute Eos (auto) 0.00 10^3/uL (0.03-0.40) L 04/22/16 01:30 Absolute Basos (auto) 0.01 10^3/uL (0.02-0.10) L 04/22/16 01:30 Absolute Nucleated RBC 0.00 10^3/uL (0-0.01) 04/22/16 01:30 Immature Gran % 0.5 % (0.0-1.1) 04/22/16 01:30 Immature Gran # 0.07 10^3/uL (0.00-0.10) 04/22/16 01:30 PT 13.5 SEC (12.0-15.0) 04/22/16 01:30 INR 1.04 (0.83-1.16) 04/22/16 01:30 APTT 24.9 SEC (23.0-38.0) 04/22/16 01:30 Sodium 125 mEq/L (134-144) L 04/22/16 01:30 Potassium 4.3 mEq/L (3.5-5.2) 04/22/16 01:30 Chloride 97 mEq/L (97-110) 04/22/16 01:30 Carbon Dioxide 22 mEq/l (22-31) 04/22/16 01:30 Anion Gap 6 mEq/L (8-16) L 04/22/16 01:30 BUN 29 mg/dL (7-23) H 04/22/16 01:30 Creatinine 0.6 mg/dL (0.7-1.3) L 04/22/16 01:30 Estimated GFR > 60 04/22/16 01:30 Glucose 200 mg/dL (70-100) H 04/22/16 01:30 Calcium 8.4 mg/dL (8.5-10.4) L 04/22/16 01:30 Total Bilirubin 0.5 mg/dL (0.1-1.4) 04/22/16 01:30 Conjugated Bilirubin 0.5 mg/dL (0.0-0.5) 04/22/16 01:30 Unconjugated Bilirubin 0.0 mg/dL (0.0-1.1) 04/22/16 01:30 AST 14 IU/L (17-59) L 04/22/16 01:30 ALT 40 IU/L (21-72) 04/22/16 01:30 Alkaline Phosphatase 156 IU/L (38-126) H 04/22/16 01:30 Total Protein 5.1 g/dL (6.3-8.2) L 04/22/16 01:30 Albumin 2.6 g/dL (3.5-5.0) L 04/22/16 01:30 Lipase 504.0 IU/L (23-300) H 04/22/16 01:30 Visualized and Interpreted EKG results: Yes EKG Interpretation: Positive for: normal sinsus rhythm (normal intervals and no ST/t wave changes) Assessment & Plan Assessment: Patient is 56/M with history of schizoaffective disorder, chronic hyponatremia due to psychogenic polydipsia, metastatic melanoma and recent prolonged [facility] hospitalization for PEA arrest and diffuse colitis, was discharged on 04/19 with control of his diarrhea/colitis and mental status back to baseline, who now presents with generalized weakness and acute on chronic hyponatremia. Plan: # acute on chronic hyponatremia Patient's diagnosis of hyponatremia was previously documented to be due to psychogenic polydipsia. He was discharged on 04/19 with an Na of 131 and prescribed DDAVP at bedtime. On presentation patient is lethargic, but with no focal deficits, it appears to be secondary to acute hyponatremia. He was given 2 L of NS prior to arrival. Patient does appear slightly hypervolemic on exam, so will check urine and serum osmolality, urine sodium to assess etiology of hyponatremia. # acute encephalopathy The patient was sent back [facility] the ED from [facility] due to generalized weakness, lethargy. He demonstrates no focal deficits, is answering all questions appropriately, but is lethargic. Suspect this is due to above metabolic abnormality. Will continue to monitor mental status with improvement in sodium. No indication for head imaging at this time. # autoimmune colitis Patient denies recurrence of profuse diarrhea, states last BM was on the morning of 04/21. Abdomen is somewhat distended (unclear if this is a change from his baseline). Will check abdominal ultrasound. Will also continue all of his previously prescribed colitis meds, including prednisone. No indication of C diff at present. # schizoaffective disorder Mood appears stable on presentation, will continue all home meds. # dm 2 Patient is slightly hyperglycemic on presentation. Will monitor fingersticks and place on sliding scale coverage, as well as continue home metformin. # metastatic melanoma Chemotherapy on hold due to complicating colitis. Will follow up with onc. # dispo: Admitted under observation status for monitoring of sodium # gen: diabetic diet DVT ppx: lovenox Full code
[2016-04-22 05:29] LABS: ANION GAP 9 mEq/L (8-16); CALCIUM 8.7 mg/dL (8.5-10.4); CARBON DIOXIDE 22 mEq/l (22-31); CHLORIDE 95 mEq/L (97-110); CREATININE 0.7 mg/dL (0.7-1.3); GLOMERULAR FILTRATION RATE > 60; GLUCOSE 156 mg/dL (70-100); MAGNESIUM 1.8 mg/dL (1.6-2.3); POTASSIUM 4.4 mEq/L (3.5-5.2); SODIUM 126 mEq/L (134-144)
[2016-04-22] MEDS: INSULIN LISPRO 100 UNIT/ML SC SCH ×3 (10:15→18:59)
[2016-04-22] MEDS ORDERED: BETAMETHASONE AUGMENTED 0.05% 15GM CREAM TP PRN (13:38)
[2016-04-22] MEDS ORDERED: IBUPROFEN 200 MG TAB PO PRN (13:38)
--- NOTE | 2016-04-22 13:46 | HOSPPROG ---
Hospitalist Progress Note Assessment/Plan: 56-year-old at [facility] is transferred here with altered mental status and found to have hyponatremia. He has a long history of hyponatremia secondary to polydipsia from his psychiatric medications. Overnight he appears to be back to baseline but continues to complain of ongoing diarrhea. # encephalopathy, acute likely secondary to hyponatremia, appears to be close to baseline will follow. # hyponatremia secondary to likely polydipsia cannot rule out some SA ID H. This is been a long-term issue for him. Sodium slowly improving will resume his usual medications and fluid restrict him and follow # diarrhea: Secondary to autoimmune colitis as a complication from his immune therapy for his melanoma. He also had a recent C difficile infection and was treated with Vanco for 21 days. At this time will continue prednisone taper and continue prophylactic Vanco since he has ongoing diarrhea. Treat with Imodium as needed. # recent PA arrest status post hot cup protocol this is likely from hypovolemia from his diarrhea. # schizoaffective disorder lives at [place] # GERD on a PPI # dyslipidemia on a statin # type 2 diabetes follow-up blood sugars currently stable # Subjective: Wants to take his medications has not received them yet. Having profuse diarrhea pooped his pants this morning. Objective: Vital Signs Temp Pulse Resp BP Pulse Ox 37.1 C 95 18 145/76 H 95 04/22/16 08:00 04/22/16 08:00 04/22/16 04:06 04/22/16 08:00 04/22/16 08:00 Laboratory Results 04/22/16 04:45 04/21/16 04/22/16 04/23/16 05:59 05:59 05:59 Intake Total 150 Output Total 101 Balance 49 PT 13.5 SEC (12.0-15.0) 04/22/16 01:30 INR 1.04 (0.83-1.16) 04/22/16 01:30 - Physical Exam Constitutional: chronically ill appearing, uncomfortable Eyes: PERRL, EOMI Ears, Nose, Mouth, Throat: dry mucous membranes Cardiovascular: regular rate and rhythym, no murmur, rub, or gallop Respiratory: no respiratory distress, no rales or rhonchi, clear to auscultation Gastrointestinal: normoactive bowel sounds, tenderness, distension Skin: warm Musculoskeletal: no muscle tenderness, normal joint ROM, no joint effusions, generalized weakness Psychiatric: interacting appropriately Lymph, Heme, Immunologic: no cervical LAD ICD10 Worksheet Patient Problems: Problems Problem Status Onset Generalized weakness Acute Hyponatremia Acute Bacteremia Acute C. difficile diarrhea Acute Cardiac arrest Acute Schizophrenia Acute Septic shock Acute
[2016-04-22] MEDS: PALIPERIDONE 9 MG TAB.ER PO SCH ×2 (16:04→20:45)
[2016-04-22] MEDS: cloZAPine 100 MG TAB PO SCH ×2 (16:04→20:46)
[2016-04-22] MEDS: buPROPion XL 150 MG TAB PO SCH (16:05)
[2016-04-22] MEDS: predniSONE 20 MG TAB PO SCH (18:36)
[2016-04-22] MEDS: LOPERAMIDE HCL 2 MG CAP PO PRN (20:44)
[2016-04-22] MEDS: ESCITALOPRAM OXALATE 10 MG TAB PO SCH (20:44)
[2016-04-22] MEDS: ATORVASTATIN CALCIUM 10 MG TAB PO SCH (20:45)
[2016-04-22] MEDS: DESMOPRESSIN 0.1 MG TAB PO SCH (20:45)
[2016-04-22] MEDS: CLOTRIMAZOLE 1% 15 GM CRTUBE TP SCH (20:46)
[2016-04-23 04:52] LABS: HEMATOCRIT 28.5 % (40.0-51.0); HEMOGLOBIN 9.1 g/dL (13.7-17.5); MEAN CELL HEMOGLOBIN 28.5 pg (27.9-34.1); MEAN CELL HEMOGLOBIN CONCENTR. 31.9 g/dL (32.4-36.7); MEAN CELL VOLUME 89.3 fL (81.5-99.8); RED BLOOD CELL COUNT 3.19 10^6/uL (4.40-6.38); RED CELL DISTRIBUTION WIDTH 15.8 % (11.5-15.2)
[2016-04-23 05:09] LABS: ALANINE AMINOTRANSFERASE 33 IU/L (21-72); ALBUMIN 2.2 g/dL (3.5-5.0); ALKALINE PHOSPHATASE 121 IU/L (38-126); ANION GAP 4 mEq/L (8-16); ASPARTATE AMINOTRANSFERASE 11 IU/L (17-59); BILIRUBIN,TOTAL 0.4 mg/dL (0.1-1.4); CALCIUM 8.2 mg/dL (8.5-10.4); CARBON DIOXIDE 23 mEq/l (22-31); CHLORIDE 98 mEq/L (97-110); CREATININE 0.6 mg/dL (0.7-1.3); GLOMERULAR FILTRATION RATE > 60; GLUCOSE 176 mg/dL (70-100); SODIUM 125 mEq/L (134-144); TOTAL PROTEIN 4.5 g/dL (6.3-8.2)
[2016-04-23] MEDS: HYDROCODONE/APAP 5/325 TAB PO PRN (05:09)
[2016-04-23] MEDS: INSULIN LISPRO 100 UNIT/ML SC SCH ×3 (08:24→19:20)
[2016-04-23] MEDS: predniSONE 20 MG TAB PO SCH ×2 (08:50→18:34)
[2016-04-23] MEDS: PALIPERIDONE 9 MG TAB.ER PO SCH ×2 (08:50→20:33)
[2016-04-23] MEDS: cloZAPine 100 MG TAB PO SCH ×2 (08:50→20:32)
[2016-04-23] MEDS: PANTOPRAZOLE SODIUM 40 MG TAB PO SCH (08:50)
[2016-04-23] MEDS: buPROPion XL 150 MG TAB PO SCH (08:50)
[2016-04-23] MEDS: CLOTRIMAZOLE 1% 15 GM CRTUBE TP SCH ×2 (08:51→22:46)
[2016-04-23] MEDS: ENOXAPARIN 40 MG/0.4 ML SYR SC SCH (08:52)
--- NOTE | 2016-04-23 15:11 | HOSPPROG ---
Hospitalist Progress Note Assessment/Plan: 56-year-old at [place] is transferred here with altered mental status and found to have hyponatremia. He has a long history of hyponatremia secondary to polydipsia from his psychiatric medications. He continues to have low sodium. His diarrhea has improved slightly with the addition of Imodium. He looks lethargic today and due to his ongoing hyponatremia and diarrhea he will need an additional midnight stay prior to transfer back to [place] [facility] [place]. # encephalopathy, acute likely secondary to hyponatremia, appears to be closer to baseline will follow. * PT/OT to assess his functional status prior to going back to [place] # hyponatremia secondary to likely polydipsia cannot rule out some SAIDH or dehydration from diarrhea This is been a long-term issue for him. Sodium did not improve overnight will continue his fluid restriction and push p.o. intake now that his diarrhea has improved. Urine sodium and creatinine and osmolality still not done will alert RN. If his urine sodium is significantly low would add IV fluids. In the meantime will get him a small bolus of 500 cc of normal saline and see if this improves his sodium tomorrow. 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 He also had a recent C difficile infection and was treated with Vanco for 21 days. At this time will continue prednisone taper and continue prophylactic Vanco since he has ongoing diarrhea. Treat with Imodium as needed. Will recheck C diff. If it is positive will increase Vanco to 250 mg 4 times a day. I did discuss this with Dr. Penny. Certainly this may be contributing to his hyponatremia. # recent PA arrest status post hot cup protocol this is likely from hypovolemia from his diarrhea. # schizoaffective disorder lives at [facility] # GERD on a PPI # dyslipidemia on a statin # type 2 diabetes follow-up blood sugars currently stable Disposition: Patient quite lethargic today. Will tighten fluid restriction to 1500/24 hours, push p.o. intake including Ensure. If his sodium improves tomorrow and he is more alert and closer to baseline he can be transferred back to [place]. Will need to continue to follow him on a day-to-day basis to see when he is ready to go back. Subjective: Patient says his diarrhea is a little bit better he is upset that he did get as much Imodium yesterday as he needed Objective: Vital Signs Temp Pulse Resp BP Pulse Ox 36.7 C 91 18 97/58 L 93 04/23/16 12:00 04/23/16 12:00 04/23/16 12:00 04/23/16 12:00 04/23/16 12:00 Laboratory Results 04/23/16 04:17 04/23/16 04:17 04/22/16 04/23/16 04/24/16 05:59 05:59 05:59 Intake Total 150 1300 Output Total 101 Balance 49 1300 PT 13.5 SEC (12.0-15.0) 04/22/16 01:30 INR 1.04 (0.83-1.16) 04/22/16 01:30 - Physical Exam Constitutional: chronically ill appearing Cardiovascular: regular rate and rhythym Respiratory: no respiratory distress, no rales or rhonchi Gastrointestinal: normoactive bowel sounds, soft, non-tender abdomen Genitourinary: no bladder fullness Psychiatric: interacting appropriately, flat affect, other (Slightly sedated) ICD10 Worksheet Patient Problems: Problems Problem Status Onset Generalized weakness Acute C. difficile diarrhea Acute Hyponatremia Acute Bacteremia Acute Schizophrenia Acute Cardiac arrest Acute Septic shock Acute
[2016-04-23] MEDS: LOPERAMIDE HCL 2 MG CAP PO PRN (15:31)
[2016-04-23] MEDS ORDERED: NS 500 ML IV ONE (16:14)
[2016-04-23] MEDS: ACETAMINOPHEN 325 MG TAB PO PRN (18:34)
[2016-04-23] MEDS: DESMOPRESSIN 0.1 MG TAB PO SCH (20:31)
[2016-04-23] MEDS: ESCITALOPRAM OXALATE 10 MG TAB PO SCH (20:31)
[2016-04-23] MEDS: ATORVASTATIN CALCIUM 10 MG TAB PO SCH (20:32)
[2016-04-24] MEDS: HYDROCODONE/APAP 5/325 TAB PO PRN (00:01)
[2016-04-24] MEDS: CALCIUM CARBONATE 500 MG CHEWABLE TAB PO PRN ×2 (05:47→17:36)
[2016-04-24 05:53] LABS: COLOR YELLOW; LEUKOCYTE ESTERASE,URINE NEGATIVE (NEGATIVE); NITRITE,URINE NEGATIVE (NEGATIVE)
[2016-04-24 06:08] LABS: ANION GAP 7 mEq/L (8-16); CALCIUM 8.4 mg/dL (8.5-10.4); CARBON DIOXIDE 25 mEq/l (22-31); CHLORIDE 102 mEq/L (97-110); CREATININE 0.6 mg/dL (0.7-1.3); GLOMERULAR FILTRATION RATE > 60; GLUCOSE 165 mg/dL (70-100); POTASSIUM 4.2 mEq/L (3.5-5.2); SODIUM 134 mEq/L (134-144)
[2016-04-24 06:13] LABS: BACTERIA 1+ /hpf (NONE SEEN); MUCUS 1+ /lpf (NONE-1+)
[2016-04-24] MEDS: INSULIN LISPRO 100 UNIT/ML SC SCH ×3 (10:33→17:36)
[2016-04-24] MEDS: ACETAMINOPHEN 325 MG TAB PO PRN (10:34)
[2016-04-24] MEDS: cloZAPine 100 MG TAB PO SCH ×2 (10:34→20:10)
[2016-04-24] MEDS: PANTOPRAZOLE SODIUM 40 MG TAB PO SCH (10:34)
[2016-04-24] MEDS: buPROPion XL 150 MG TAB PO SCH (10:35)
[2016-04-24] MEDS: ENOXAPARIN 40 MG/0.4 ML SYR SC SCH (10:36)
--- NOTE | 2016-04-24 11:15 | GCON ---
[f rep st] CONSULTATION DATE OF CONSULTATION: 04/24/2016 REFERRING PHYSICIAN: Louisa North MD INDICATION FOR CONSULTATION: Diarrhea, possibly related to C difficile versus chemotherapy-induced colitis. HISTORY OF PRESENT ILLNESS: I have been asked by Louisa North MD, to see the patient in consultation with a chief complaint of diarrhea. The patient is a 56 -year-old male who has past medical history significant for recurrent melanoma, schizoaffective disorder, type 2 diabetes, chronic hyponatremia. He was hospitalized in [facility] from March 26 through April 19 for PEA arrest, which was presumed to be secondary to hypovolemia from his profound diarrhea. When he was admitted my partner, Dr. Cedeno, saw the patient in consultation and performed a colonoscopy which revealed diffuse colitis with scattered shallow ulcerations and friability. Biopsies revealed changes consistent with therapy-induced colitis. In addition, the patient also had a positive C difficile that was treated with oral vancomycin. The treatment for the chemotherapy-induced colitis is Remicade. He received 1 dose of Remicade on April 14 and is due for another one on April 28. He was discharged to [facility], but readmitted secondary to lethargy and confusion and hyponatremia at 124. Since he has been in the hospital, he has had significant recurrent diarrhea. The patient is a poor historian. He says the last time he had a normal stool was prior to coming into the hospital in March, although the HPI said he had a normal stool yesterday. The progress note from the beginning of April stated his diarrhea was improving with the addition of Remicade, so it is not clear to me if he had a response and recurrence or if he has had continued symptoms throughout all of April. He does not see any blood in the stool. He does not complain of any nausea or vomiting. He has no fevers, chills, sweats. It is difficult to obtain a history on him. Repeat C difficile stool is pending. I have spoke with Dr. Bangura about evaluation and treatment over the next few days. I am now here to help him treat and evaluate his recurrent diarrhea. 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 PREVIOUS SURGERIES: Hernia repair, melanoma resection. He did have an EGD a few years ago. SOCIAL HISTORY: He smokes every day. Does not drink alcohol. He has lived at [place] for 2 years. His father is alive and lives nearby in [place]. FAMILY HISTORY: no GI malignancies, no history of IBD in family MEDICATIONS: In hospital include Tylenol p.r.n.; [place] p.r.n.; albuterol p.r.n. ; Lipitor 10 mg q.h.s.; Bupropion 300 mg daily; Tums p.r.n.; Lotrimin apply b.i.d.; Clozaril 200 q.a.m., 250 q.h.s.; DDAVP 0.2 mg p.o. q.h.s.; Lovenox 40 mg subcu daily; Lexapro 20 mg at night; ibuprofen p.r.n.; sliding-scale insulin ; Imodium; Zofran p.r.n.; Invega 9 mg b.i.d.; Protonix 40 mg daily; prednisone 30 mg b.i.d. ALLERGIES: Does not react well to Ativan. REVIEW OF SYSTEMS: A complete 12-point review of systems performed is negative other than noted in HPI. PHYSICAL EXAMINATION: GENERAL: Somewhat disheveled middle-aged man, sitting in his bed, in no acute distress. VITAL SIGNS: Blood pressure is 121/79, pulse is 86, respirations are 20, 94% on 2 L nasal cannula, temperature 37.1. HEENT: Eyes anicteric. BLESSING. EOMI. Mouth: No lesions. Moist membranes. NECK: Supple. Full range of motion. No JVD. BACK: No spine tenderness. No CVA tenderness. LUNGS: Clear to auscultation. CARDIAC: S1, S2. Regular rate and rhythm. I do not appreciate any murmurs, rubs, or gallops. ABDOMEN: Bowel sounds are normal in pitch and frequency. Abdomen is soft. Minimal discomfort on deep palpation. No rebound. No guarding. EXTREMITIES: No cyanosis, clubbing, or edema. NEUROLOGIC: Cranial nerves intact. Nonfocal. SKIN: No stigmata of advanced liver disease. No rashes. LABORATORY DATA: From yesterday, WBC was 13.97. Today, WBC 7.90, hemoglobin 9.1, hematocrit 28.5, platelets 131. His pro time from April 22 was 13.5, INR 1.04, PTT 24.9. From today, sodium 134, potassium 4.2, chloride 102, bicarb 25 , BUN 19, creatinine 0.6, glucose 165, calcium 8.4. From the , his AST was 11, ALT 13, alk phos 121, bilirubin 0.4. C difficile is pending. He had a positive C difficile on March 27. Abdominal x-ray from April 23: Mild decrease in distention of large bowel since prior study. Abdominal ultrasound from April 22, 2016: Hepatomegaly and hepatic steatosis without definite focal hepatic lesions, although limited due to bowel gas, mild splenomegaly, no ascites, no cholelithiasis. The common bile duct, pancreas, and aorta are obscured by gas. Abdominal CAT scan from March 27, 2016: Moderate distention and thickening associated with large bowel diffusely, suspicious for pancolitis. Mild distention and thickening of the mid and distal small bowel loops as well. Considering the diffuse abnormality, possibility of bowel injury secondary to hypertension may be considered, along with underlying infectious or inflammatory process. Mild splenomegaly has developed. Possible gallbladder sludge or IV contrast in the gallbladder. ASSESSMENT: 1. Recurrent diarrhea either related to autoimmune colitis from his chemotherapy for his melanoma or recurrent Clostridium difficile. 2. Hyponatremia, likely related to polydipsia from his medications. Dehydration from diuretic can cause similar stuff. 3. Reflux and gastroesophageal reflux disease. 4. Type 2 diabetes. 5. Dyslipidemia. 6. Schizoaffective disorder. RECOMMENDATIONS: 1. Check C difficile. 2. If C difficile positive, treat with vancomycin 250 mg q.i.d. 3. If C difficile is negative, then give Remicade 5 mg/kg for treatment of his colitis related to his chemotherapy agent. 4. If C difficile is positive but he is not responding to vancomycin, then I would also move up his Remicade dose. 5. If C difficile is positive and he responds to vancomycin, then he will get his Remicade dose on April 28 when it is due. 6. Treatment of his other medical problems as per hospitalist. 7. Further recommendations to follow results of above and clinical course. I did discuss this with Dr. Bangura, who is his outpatient oncologist. He is in agreement with the plan noted above. He expects that we will be giving Remicade sooner as he thinks it is more likely to be related to his colitis from his chemotherapy agent then recurrent C difficile. Thank you for allowing me to participate in the patient's healthcare. Do not hesitate to contact me with questions. /[id number]/MODL MTDD
[2016-04-24] MEDS: predniSONE 20 MG TAB PO SCH ×2 (11:24→17:35)
[2016-04-24] MEDS: PALIPERIDONE 9 MG TAB.ER PO SCH ×2 (11:25→20:10)
--- NOTE | 2016-04-24 13:35 | HOSPPROG ---
Hospitalist Progress Note Assessment/Plan: 56-year-old at [place] is transferred here with altered mental status and found to have hyponatremia. He has a long history of hyponatremia secondary to polydipsia from his psychiatric medications. He continues to have low sodium. His diarrhea has improved slightly with the addition of Imodium. He looks lethargic today and due to his ongoing hyponatremia and diarrhea he will need an additional midnight stay prior to transfer back to [place]. # acute C.diff colitis - confirmed on stool eval today - recently completed 21 day course of treatment with vancomycin diarrhea output remians very watery and voluminous - starting PO vancomycin QID now - no imodium # encephalopathy- presumed 2/2 acute illness and hyponatremia- improved today - appears to be closer to baseline. - will follow clinically - PT/OT to assess his functional status prior to going back to [place] # Acute on chronic hyponatremia presumed secondary to likely polydipsia - cannot rule out some SAIDH or dehydration from diarrhea. 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 He also had a recent C difficile infection and was treated with Vanco for 21 days. At this time will continue prednisone taper and continue prophylactic Vanco since he has ongoing diarrhea. Treat with Imodium as needed. Will recheck C diff. If it is positive will increase Vanco to 250 mg 4 times a day. I did discuss this with Dr. Penny. Certainly this may be contributing to his hyponatremia. # recent PA arrest status post hot cup protocol this is likely from hypovolemia from his diarrhea. # schizoaffective disorder lives at [place] # GERD on a PPI # dyslipidemia on a statin # type 2 diabetes follow-up blood sugars currently stable Disposition: Patient quite lethargic today. Will tighten fluid restriction to 1500/24 hours, push p.o. intake including Ensure. If his sodium improves tomorrow and he is more alert and closer to baseline he can be transferred back to [place]. Will need to continue to follow him on a day-to-day basis to see when he is ready to go back. Subjective: diarrhea improving Objective: Vital Signs Temp Pulse Resp BP Pulse Ox 37.2 C 86 20 113/60 93 04/24/16 12:00 04/24/16 12:00 04/24/16 12:00 04/24/16 12:00 04/24/16 12:00 Laboratory Results 04/24/16 05:11 04/23/16 04/24/16 04/25/16 05:59 05:59 05:59 Intake Total 100 Output Total 1350 625 Balance -1250 -625 PT 13.5 SEC (12.0-15.0) 04/22/16 01:30 INR 1.04 (0.83-1.16) 04/22/16 01:30 - Physical Exam Constitutional: chronically ill appearing Eyes: anicteric sclera Ears, Nose, Mouth, Throat: dry mucous membranes Cardiovascular: regular rate and rhythym Respiratory: no respiratory distress, no rales or rhonchi Gastrointestinal: normoactive bowel sounds, tenderness Genitourinary: no bladder fullness Skin: warm, normal color Musculoskeletal: No asymmetric calves Neurologic: AAOx3 Psychiatric: interacting appropriately, No agitated Lymph, Heme, Immunologic: no cervical LAD ICD10 Worksheet Patient Problems: Problems Problem Status Onset Generalized weakness Acute Hyponatremia Acute Bacteremia Acute C. difficile diarrhea Acute ~04/24/16 Cardiac arrest Acute Schizophrenia Acute Septic shock Acute
[2016-04-24] MEDS: CLOTRIMAZOLE 1% 15 GM CRTUBE TP SCH ×2 (14:21→20:14)
[2016-04-24] MEDS: VANCOMYCIN 125 MG/2.5 ML UDL PO SCH ×2 (14:21→20:11)
[2016-04-24] MEDS ORDERED: VANCOMYCIN 125 MG/2.5 ML UDL PO SCH (16:00)
--- NOTE | 2016-04-24 16:11 | HOSPPROG ---
Hospitalist Progress Note Assessment/Plan: 56-year-old at [place] is transferred here with altered mental status and found to have hyponatremia. He has a long history of hyponatremia secondary to polydipsia from his psychiatric medications. He continues to have low sodium. His diarrhea has improved slightly with the addition of Imodium. He looks lethargic today and due to his ongoing hyponatremia and diarrhea he will need an additional midnight stay prior to transfer back to [place]. # acute C.diff colitis - confirmed on stool eval today - recently completed 21 day course of treatment with vancomycin diarrhea output remains very watery and voluminous abdominal x-ray( personally reviewed and interpreted) decrease large bowel distention - starting PO vancomycin QID now - no Imodium # encephalopathy- presumed 2/2 acute illness and hyponatremia- improved today - appears to be closer to baseline. oxygen saturations 94% on room air - will follow clinically - PT/OT to assess his functional status prior to going back to [place] # Acute on chronic hyponatremia presumed secondary to likely polydipsia - cannot rule out some SAIDH or dehydration from diarrhea. Sodium 125-> 134 with fluid restriction overnight- patient also has had voluminous diarrhea - had urine sodium to admission urinalysis - continue fluid restriction - treating diarrhea as above # recent P#A arrest status post HACA protocol this is likely from hypovolemia from his diarrhea. # schizoaffective disorder lives at [place] # GERD on a PPI # dyslipidemia on a statin # type 2 diabetes follow-up blood sugars currently stable #Disposition: greater than 2 midnights as the patient is requiring close monitoring for acute C diff colitis I discussed the case with Gastroenterology will initiate higher dose oral vancomycin four times daily Subjective: diarrhea persists Objective: Vital Signs Temp Pulse Resp BP Pulse Ox 37.2 C 86 20 113/60 93 04/24/16 12:00 04/24/16 12:00 04/24/16 12:00 04/24/16 12:00 04/24/16 12:00 Laboratory Results 04/24/16 05:11 04/23/16 04/24/16 04/25/16 05:59 05:59 05:59 Intake Total 100 Output Total 1350 625 Balance -1250 -625 PT 13.5 SEC (12.0-15.0) 04/22/16 01:30 INR 1.04 (0.83-1.16) 04/22/16 01:30 - Physical Exam Constitutional: unkempt Eyes: anicteric sclera Ears, Nose, Mouth, Throat: dry mucous membranes Cardiovascular: regular rate and rhythym Respiratory: no respiratory distress Gastrointestinal: normoactive bowel sounds, tenderness, No guarding, No rebound Genitourinary: no bladder fullness Skin: warm, normal color Musculoskeletal: No asymmetric calves Neurologic: AAOx3 Psychiatric: interacting appropriately, No agitated Lymph, Heme, Immunologic: no cervical LAD ICD10 Worksheet Patient Problems: Problems Problem Status Onset Generalized weakness Acute Hyponatremia Acute Bacteremia Acute C. difficile diarrhea Acute ~04/24/16 Cardiac arrest Acute Schizophrenia Acute Septic shock Acute
[2016-04-24] MEDS: DESMOPRESSIN 0.1 MG TAB PO SCH (20:09)
[2016-04-24] MEDS: ATORVASTATIN CALCIUM 10 MG TAB PO SCH (20:09)
[2016-04-24] MEDS: ESCITALOPRAM OXALATE 10 MG TAB PO SCH (20:10)
[2016-04-25] MEDS: HYDROCODONE/APAP 5/325 TAB PO PRN (02:21)
[2016-04-25] MEDS: CALCIUM CARBONATE 500 MG CHEWABLE TAB PO PRN (02:26)
[2016-04-25] MEDS: VANCOMYCIN 125 MG/2.5 ML UDL PO SCH ×4 (05:22→22:44)
[2016-04-25 05:35] LABS: HEMATOCRIT 29.4 % (40.0-51.0); HEMOGLOBIN 9.4 g/dL (13.7-17.5); MEAN CELL HEMOGLOBIN 28.7 pg (27.9-34.1); MEAN CELL VOLUME 89.6 fL (81.5-99.8); RED BLOOD CELL COUNT 3.28 10^6/uL (4.40-6.38); RED CELL DISTRIBUTION WIDTH 16.1 % (11.5-15.2)
[2016-04-25 05:47] LABS: ANION GAP 6 mEq/L (8-16); CALCIUM 8.6 mg/dL (8.5-10.4); CARBON DIOXIDE 26 mEq/l (22-31); CHLORIDE 102 mEq/L (97-110); CREATININE 0.6 mg/dL (0.7-1.3); GLOMERULAR FILTRATION RATE > 60; GLUCOSE 175 mg/dL (70-100); SODIUM 134 mEq/L (134-144)
[2016-04-25] MEDS ORDERED: NS 500 ML IV ONE (08:19)
[2016-04-25] MEDS: PALIPERIDONE 9 MG TAB.ER PO SCH ×2 (08:41→22:49)
[2016-04-25] MEDS: buPROPion XL 150 MG TAB PO SCH (08:41)
[2016-04-25] MEDS: predniSONE 20 MG TAB PO SCH (08:41)
[2016-04-25] MEDS: PANTOPRAZOLE SODIUM 40 MG TAB PO SCH (08:42)
[2016-04-25] MEDS: cloZAPine 100 MG TAB PO SCH ×2 (08:42→22:47)
[2016-04-25] MEDS: ENOXAPARIN 40 MG/0.4 ML SYR SC SCH (08:46)
[2016-04-25] MEDS: INSULIN LISPRO 100 UNIT/ML SC SCH ×3 (09:21→17:25)
[2016-04-25] MEDS: CLOTRIMAZOLE 1% 15 GM CRTUBE TP SCH ×2 (10:42→22:50)
--- NOTE | 2016-04-25 12:39 | SOAPPROG ---
[facility] Progress Note Assessment/Plan: Assessment:Plan: 1) Diarrhea from c diff - back on vanco 250 mg qid with improvement in stool frequency decreased but still quite loose, If it worsens then I would move up the Remicade infusion that is due around 04/28 2) Colitis from Chemotherapy - will decrease Prednisone to 20mg BID as he started 30 BID on 04/18 and they want one week at 30 BID, one week at 20 bid, one week at 10 bid, one week at 5 bid and then one week 5mg daily. he will be getting his Remicade at 2 week interval as per Dr. Bangura [facility] I think he will continue to improve I am going off service at 7am tomorrow I will sign of, but if GI still needed, Dr. Durán will be doorperson thank you 04/25/16 12:40 Subjective: cc- diarrhea from c diff also has colitis from chemotherapy pt states one stool before bedtime and one this am - still loose 'explosive" Objective: Vital Signs Temp Pulse Resp BP Pulse Ox 36.6 C 110 H 20 126/65 H 94 04/25/16 08:00 04/25/16 08:00 04/25/16 08:00 04/25/16 08:00 04/25/16 08:00 Laboratory Results 04/25/16 05:02 04/25/16 05:02 04/24/16 04/25/16 04/26/16 05:59 05:59 05:59 Intake Total 100 1500 Output Total 1350 1850 350 Balance -1250 -350 -350 PT 13.5 SEC (12.0-15.0) 04/22/16 01:30 INR 1.04 (0.83-1.16) 04/22/16 01:30 alert S1S2, CTA +BS, soft NT ICD10 Worksheet Patient Problems: Problems Problem Status Onset Generalized weakness Acute Hyponatremia Acute Bacteremia Acute C. difficile diarrhea Acute ~04/24/16 Cardiac arrest Acute Schizophrenia Acute Septic shock Acute
--- NOTE | 2016-04-25 13:42 | HOSPPROG ---
Hospitalist Progress Note Assessment/Plan: 56-year-old at [place] is transferred here with altered mental status and found to have hyponatremia. He has a long history of hyponatremia secondary to polydipsia from his psychiatric medications. He continues to have low sodium. His diarrhea has improved slightly with the addition of Imodium. He looks lethargic today and due to his ongoing hyponatremia and diarrhea he will need an additional midnight stay prior to transfer back to [place]. # acute C.diff colitis - confirmed on stool eval today - recently completed 21 day course of treatment with vancomycin diarrhea output decreased overnight but remains soft abdominal x-ray (personally reviewed and interpreted) decrease large bowel distention - starting PO vancomycin QID now - no Imodium # sinus tachycardia - TELE (personally reviewed and interpreted) remains in sinus HR up in 100's this am denies new pain or pleuritic CP - may be mild fluid depletion - small 500 cc bolus this am # chemotherapy related colitis - on prednisone taper currently [facility] wants one week at 20 bid, one week at 10 bid, one week at 5 bid and then one week 5mg daily. Planning for Remicade infusion at 2 week interval as per Dr. Bangura [facility] # Acute encephalopathy- presumed 2/2 acute illness and hyponatremia- improved today - appears baseline. oxygen saturations 94% on 2L - will follow clinically - PT/OT to assess his functional status prior to going back to [place] # Acute on chronic hyponatremia presumed secondary to likely polydipsia - cannot rule out some SIADH or dehydration from diarrhea. Sodium 125 on admit -> remains 134 this am - remove fluid restriction - treating diarrhea as above # recent PEA arrest status post HACA protocol this is likely from hypovolemia from his diarrhea. # schizoaffective disorder lives at [place] # GERD on a PPI # dyslipidemia on a statin # type 2 diabetes follow-up blood sugars currently stable # Disposition- greater than 2 midnights as the patient is requiring close monitoring for acute C diff colitis and electrolyte abnormalities I discussed the case with Gastroenterology - Prednisone will be decreased to 20 mg twice daily today on the anticipated prednisone taper Subjective: stooling slowed down Objective: Vital Signs Temp Pulse Resp BP Pulse Ox 36.6 C 110 H 20 126/65 H 94 04/25/16 08:00 04/25/16 08:00 04/25/16 08:00 04/25/16 08:00 04/25/16 08:00 Laboratory Results 04/25/16 05:02 04/25/16 05:02 04/24/16 04/25/16 04/26/16 05:59 05:59 05:59 Intake Total 100 1500 Output Total 1350 1850 350 Balance -1250 -350 -350 PT 13.5 SEC (12.0-15.0) 04/22/16 01:30 INR 1.04 (0.83-1.16) 04/22/16 01:30 - Physical Exam Constitutional: chronically ill appearing Eyes: anicteric sclera Ears, Nose, Mouth, Throat: dry mucous membranes Cardiovascular: regular rate and rhythym Respiratory: no respiratory distress, no rales or rhonchi Gastrointestinal: normoactive bowel sounds, tenderness, No guarding, No rebound Genitourinary: no bladder fullness Skin: warm, normal color Musculoskeletal: No asymmetric calves Neurologic: AAOx3 Psychiatric: interacting appropriately, No agitated Lymph, Heme, Immunologic: no cervical LAD ICD10 Worksheet Patient Problems: Problems Problem Status Onset Generalized weakness Acute Hyponatremia Acute Bacteremia Acute C. difficile diarrhea Acute ~04/24/16 Cardiac arrest Acute Schizophrenia Acute Septic shock Acute
[2016-04-25] MEDS ORDERED: predniSONE 10 MG TAB PO ONE (16:00)
[2016-04-25] MEDS: ATORVASTATIN CALCIUM 10 MG TAB PO SCH (22:48)
[2016-04-25] MEDS: DESMOPRESSIN 0.1 MG TAB PO SCH (22:48)
[2016-04-25] MEDS: ESCITALOPRAM OXALATE 10 MG TAB PO SCH (22:48)
[2016-04-26] MEDS: HYDROCODONE/APAP 5/325 TAB PO PRN ×2 (03:55→10:48)
[2016-04-26] MEDS: VANCOMYCIN 125 MG/2.5 ML UDL PO SCH ×4 (05:24→20:18)
[2016-04-26 05:44] LABS: HEMATOCRIT 29.9 % (40.0-51.0); HEMOGLOBIN 9.3 g/dL (13.7-17.5); MEAN CELL HEMOGLOBIN 28.5 pg (27.9-34.1); MEAN CELL HEMOGLOBIN CONCENTR. 31.1 g/dL (32.4-36.7); MEAN CELL VOLUME 91.7 fL (81.5-99.8); RED BLOOD CELL COUNT 3.26 10^6/uL (4.40-6.38); RED CELL DISTRIBUTION WIDTH 16.1 % (11.5-15.2)
[2016-04-26 05:54] LABS: ANION GAP 5 mEq/L (8-16); CALCIUM 8.6 mg/dL (8.5-10.4); CARBON DIOXIDE 25 mEq/l (22-31); CHLORIDE 104 mEq/L (97-110); CREATININE 0.6 mg/dL (0.7-1.3); GLOMERULAR FILTRATION RATE > 60; GLUCOSE 115 mg/dL (70-100); POTASSIUM 3.6 mEq/L (3.5-5.2); SODIUM 134 mEq/L (134-144)
[2016-04-26] MEDS: INSULIN LISPRO 100 UNIT/ML SC SCH ×3 (07:57→17:08)
[2016-04-26] MEDS: PALIPERIDONE 9 MG TAB.ER PO SCH ×2 (08:38→20:18)
[2016-04-26] MEDS: buPROPion XL 150 MG TAB PO SCH (08:38)
[2016-04-26] MEDS: cloZAPine 100 MG TAB PO SCH ×2 (08:39→20:18)
[2016-04-26] MEDS: ENOXAPARIN 40 MG/0.4 ML SYR SC SCH (08:39)
[2016-04-26] MEDS: predniSONE 20 MG TAB PO SCH ×2 (08:39→17:08)
[2016-04-26] MEDS: PANTOPRAZOLE SODIUM 40 MG TAB PO SCH (08:39)
[2016-04-26] MEDS: CLOTRIMAZOLE 1% 15 GM CRTUBE TP SCH ×2 (08:46→20:23)
--- NOTE | 2016-04-26 12:18 | PDIAF ---
- Diagnosis Diagnosis: C. diff colitis Code Status: Full Code - Medication Management Discharge Medications: Medications to Continue on Transfer Betamethasone/Propylene Glyc [Betamethasone Dp Aug 0.05% Crm] 1 emery TP Q12 PRN 01/28/16 [Last Taken Unknown] Desmopressin [DDAVP 0.1 mg (*)] 0.2 mg PO HS 01/28/16 [Last Taken 03/25/16] Escitalopram Oxalate [Lexapro] 20 mg PO HS 01/28/16 [Last Taken 03/25/16] Ibuprofen [Motrin (*)] 400 mg PO DAILY PRN 01/28/16 [Last Taken 01/27/16 09:41] [place]-3 Fatty Acids [Fish Oil 1000 mg (*)] 1,000 mg PO BID 01/28/16 [Last Taken 03/25/16] Omeprazole [Prilosec 20 mg] 20 mg PO DAILY 01/28/16 [Last Taken 03/25/16] Simvastatin [Zocor] 20 mg PO HS 01/28/16 [Last Taken 03/25/16] buPROPion XL [Wellbutrin 150mg XL] 300 mg PO DAILY 01/28/16 [Last Taken 03/25/16 ] cloZAPine [Clozaril (*)] 200 mg PO DAILY 01/28/16 [Last Taken 03/25/16] Clotrimazole 1% [Lotrimin 1%] 1 emery TP BID 03/26/16 [Last Taken 03/25/16] Ergocalciferol (Vitamin D2) [Vitamin D2] 50,000 unit PO Q30D 03/26/16 [Last Taken Unknown] Herbals/Supplements -Info Only 1 ea PO DAILY 03/26/16 [Last Taken Unknown] Paliperidone [Invega 9mg ER (*)] 9 mg PO BID 03/26/16 [Last Taken 03/25/16] cloZAPine [Clozaril (*)] 250 mg PO HS 03/26/16 [Last Taken 03/25/16] metFORMIN HCL [Glucophage 500 mg (*)] 500 mg PO BIDMEAL 04/22/16 [Last Taken Unknown] Acetaminophen [Tylenol 325mg (*)] 650 mg PO Q4HRS PRN #0 tab 04/26/16 [Last Taken Unknown] Vancomycin [Vancocin Oral Liquid] 250 mg PO QID #56 udl 04/26/16 [Last Taken Unknown] predniSONE 20 mg PO BIDMEAL #0 tablet 04/26/16 [Last Taken Unknown] Discharge Medications: Refer to the Discharge Home Medication list for PRN reason. - Orders Services needed: Registered Nurse, Physical Therapy, Occupational Therapy Diet Recommendation: no restrictions on diet Diet Texture: Regular Texture Diet - Follow Up Care Current Providers and Referrals: JOURDAN TRIANA [Primary Care Provider] - As per Instructions Rohit Penny MD [Medical Doctor] - Camilla Bangura MD [Medical Doctor] -
[2016-04-26] MEDS: CALCIUM CARBONATE 500 MG CHEWABLE TAB PO PRN (12:36)
--- NOTE | 2016-04-26 16:53 | GDS ---
Addendum to discharge summary - retirement refused patient for Dc because his stools were still loose patient remaining overnight for more monitoring - Physical Exam 121/52 (84) oxygen saturation 94% on RA Constitutional: chronically ill appearing Eyes: anicteric sclera Ears, Nose, Mouth, Throat: dry mucous membranes Cardiovascular: regular rate and rhythym Respiratory: no respiratory distress, no rales or rhonchi Gastrointestinal: normoactive bowel sounds, tenderness, No guarding, No rebound Genitourinary: no bladder fullness Skin: warm, normal color Musculoskeletal: No asymmetric calves Neurologic: AAOx3 Psychiatric: interacting appropriately, No agitated Lymph, Heme, Immunologic: no cervical LAD WBC count 7.5 this am - TELE (personally reviewed) remained sinus I discussed the case with RN - we will keep the patient overnight and continue current care including PO vancomycin and supportive care. [f rep st] DISCHARGE SUMMARY DISCHARGE DIAGNOSES: Include: 1. Acute recurrent Clostridium difficile colitis. 2. Chemotherapy-related colitis. 3. Sinus tachycardia. 4. Acute encephalopathy thought secondary to hyponatremia and acute illness. 5. Acute hyponatremia. 6. History of recent pulseless electrical activity arrest. 7. Schizoaffective disorder. 8. Gastroesophageal reflux disease. 9. Dyslipidemia. 10. Metastatic melanoma on current treatment. HISTORY OF PRESENT ILLNESS: A 56-year-old male with schizoaffective disorder, metastatic melanoma who presents with complaints of weakness. For details of patient's initial presentation, please see the history and physical dated 2016. CONSULTATIVE SERVICES: Include Gastroenterology. PROCEDURES: On 04/23/2016, patient had a full abdominal x-ray that showed mild distention of the colon. HOSPITAL COURSE: 1. Acute diarrhea. The patient was known to have chemotherapy-related colitis and was on prednisone burst and taper for this was re-admitted as he has had a history of recent C diff treated with 3 weeks of oral vancomycin. The patient had voluminous watery diarrhea presentation that was recurrently C diff positive. Patient was restarted on oral vancomycin at 250 mg p.o. q.i.d. and had very rapid resolution of his diarrhea. 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 He is to follow with Infectious Disease at the end of his oral vancomycin script. 2. Chemotherapy-related colitis. As above, patient is on a 4-week taper of oral prednisone being monitored closely by his outpatient oncology team. 3. Metastatic melanoma. Patient is actively receiving treatment. 4. Hyponatremia. Patient presented with voluminous diarrhea and a sodium of 125. Received aggressive fluid resuscitation and had normalization of his sodium to 134. Did suspect there may be more than 1 etiology for his hyponatremia, volume depletion and potential SIADH related to his malignancy. 5. Schizoaffective disorder. Patient was continued on his psychiatric regimen without change. MEDICATIONS AT THE TIME OF TRANSFER: Please reference medication reconciliation printed on 04/26/2016. FOLLOWUP APPOINTMENTS: Include: 1. Gastroenterology, Dr. Penny. 2. Dr. Bangura at [facility]. 3. Infectious Disease near the end of his completion of oral vancomycin for re- evaluation and determination of appropriate length of care. TIME SPENT: I spent greater than 30 minutes in the planning and coordination of this discharge. /[id number]/MODL MTDD
[2016-04-26] MEDS: ATORVASTATIN CALCIUM 10 MG TAB PO SCH (20:18)
[2016-04-26] MEDS: DESMOPRESSIN 0.1 MG TAB PO SCH (20:18)
[2016-04-26] MEDS: ESCITALOPRAM OXALATE 10 MG TAB PO SCH (20:18)
[2016-04-27] MEDS: HYDROCODONE/APAP 5/325 TAB PO PRN ×2 (05:21→10:49)
[2016-04-27] MEDS: VANCOMYCIN 125 MG/2.5 ML UDL PO SCH ×4 (05:21→20:16)
[2016-04-27] MEDS: ENOXAPARIN 40 MG/0.4 ML SYR SC SCH (08:53)
[2016-04-27] MEDS: CLOTRIMAZOLE 1% 15 GM CRTUBE TP SCH ×2 (08:54→21:21)
[2016-04-27] MEDS: cloZAPine 100 MG TAB PO SCH ×2 (08:54→20:16)
[2016-04-27] MEDS: PANTOPRAZOLE SODIUM 40 MG TAB PO SCH (08:54)
[2016-04-27] MEDS: PALIPERIDONE 9 MG TAB.ER PO SCH ×2 (08:54→20:15)
[2016-04-27] MEDS: buPROPion XL 150 MG TAB PO SCH (08:54)
[2016-04-27] MEDS: INSULIN LISPRO 100 UNIT/ML SC SCH ×3 (08:54→17:58)
[2016-04-27] MEDS: predniSONE 20 MG TAB PO SCH ×2 (08:54→17:58)
--- NOTE | 2016-04-27 11:32 | HOSPPROG ---
Hospitalist Progress Note Assessment/Plan: 56-year-old at [place] is transferred here with altered mental status and found to have hyponatremia. He has a long history of hyponatremia secondary to polydipsia from his psychiatric medications. # acute C.diff colitis - confirmed on stool eval on admit - recently completed 21 day course of treatment with PO vancomycin diarrhea output markedly improved after re-initiation of PO vancomycin- pt high risk of recurrence 2/2 immunosuppression - cont PO vancomycin 250 QID - no imodium # sinus tachycardia - resolved with fluid resuscitation EKG (personally reviewed and interpreted) sinus with RAD denies new pain or pleuritic CP - may be mild fluid depletion - small 500 cc bolus this am # chemotherapy related colitis - on prednisone taper currently [facility] wants one week at 20 bid, one week at 10 bid, one week at 5 bid and then one week 5mg daily. Planning for Remicade infusion at 2 week interval as per Dr. Bangura [facility] # Acute encephalopathy- presumed 2/2 acute illness and hyponatremia- improved today - appears baseline. oxygen saturations 94% on RA - will follow clinically - PT/OT to assess his functional status prior to going back to [place] # Acute on chronic hyponatremia presumed secondary to dehydration from diarrhea as resolved with fluids Sodium 125 on admit -> remains 134 yesterday - treating diarrhea as above - no fluid restrictions # recent PA arrest status post hot cup protocol this is likely from hypovolemia from his diarrhea. # schizoaffective disorder lives at [place] # GERD on a PPI # dyslipidemia on a statin # type 2 diabetes follow-up blood sugars currently stable Disposition: patient has only stooled 3 x in past 24 hours - with stool more formed - he is ready for return to [place] today I have discussed the case with RN we are both very comfortable that the patient is stable for transfer back to [place] Subjective: eating well Objective: Vital Signs Temp Pulse Resp BP Pulse Ox 37 C 89 16 124/82 H 93 04/27/16 07:25 04/27/16 07:25 04/27/16 07:25 04/27/16 07:25 04/27/16 07:25 Laboratory Results 04/26/16 05:19 04/26/16 05:19 04/26/16 04/27/16 04/28/16 05:59 05:59 05:59 Intake Total 1460 2480 Output Total 1700 850 Balance -240 1630 PT 13.5 SEC (12.0-15.0) 04/22/16 01:30 INR 1.04 (0.83-1.16) 04/22/16 01:30 - Physical Exam Constitutional: chronically ill appearing Eyes: anicteric sclera Ears, Nose, Mouth, Throat: moist mucous membranes Cardiovascular: regular rate and rhythym Respiratory: no respiratory distress, no rales or rhonchi Gastrointestinal: normoactive bowel sounds Genitourinary: no bladder fullness Skin: warm, normal color Musculoskeletal: No asymmetric calves Neurologic: AAOx3 Psychiatric: No anxious Lymph, Heme, Immunologic: no cervical LAD ICD10 Worksheet Patient Problems: Problems Problem Status Onset Generalized weakness Acute Hyponatremia Acute Bacteremia Acute C. difficile diarrhea Acute ~04/24/16 Cardiac arrest Acute Schizophrenia Acute Septic shock Acute
[2016-04-27] MEDS: ESCITALOPRAM OXALATE 10 MG TAB PO SCH (20:15)
[2016-04-27] MEDS: ATORVASTATIN CALCIUM 10 MG TAB PO SCH (20:15)
[2016-04-27] MEDS: DESMOPRESSIN 0.1 MG TAB PO SCH (20:16)
[2016-04-28] MEDS: HYDROCODONE/APAP 5/325 TAB PO PRN (02:01)
[2016-04-28] MEDS: VANCOMYCIN 125 MG/2.5 ML UDL PO SCH (05:36)
[2016-04-28 08:08] VITALS: TEMP 97.7; O2SAT 90
--- NOTE | 2016-04-28 08:21 | PDIAF ---
- Diagnosis Diagnosis: C. diff colitis Code Status: Full Code - Medication Management Discharge Medications: Medications to Continue on Transfer Betamethasone/Propylene Glyc [Betamethasone Dp Aug 0.05% Crm] 1 emery TP Q12 PRN 01/28/16 [Last Taken Unknown] Desmopressin [DDAVP 0.1 mg (*)] 0.2 mg PO HS 01/28/16 [Last Taken 03/25/16] Escitalopram Oxalate [Lexapro] 20 mg PO HS 01/28/16 [Last Taken 03/25/16] Ibuprofen [Motrin (*)] 400 mg PO DAILY PRN 01/28/16 [Last Taken 01/27/16 09:41] [place]-3 Fatty Acids [Fish Oil 1000 mg (*)] 1,000 mg PO BID 01/28/16 [Last Taken 03/25/16] Omeprazole [Prilosec 20 mg] 20 mg PO DAILY 01/28/16 [Last Taken 03/25/16] Simvastatin [Zocor] 20 mg PO HS 01/28/16 [Last Taken 03/25/16] buPROPion XL [Wellbutrin 150mg XL] 300 mg PO DAILY 01/28/16 [Last Taken 03/25/16 ] cloZAPine [Clozaril (*)] 200 mg PO DAILY 01/28/16 [Last Taken 03/25/16] Clotrimazole 1% [Lotrimin 1%] 1 emery TP BID 03/26/16 [Last Taken 03/25/16] Ergocalciferol (Vitamin D2) [Vitamin D2] 50,000 unit PO Q30D 03/26/16 [Last Taken Unknown] Herbals/Supplements -Info Only 1 ea PO DAILY 03/26/16 [Last Taken Unknown] Paliperidone [Invega 9mg ER (*)] 9 mg PO BID 03/26/16 [Last Taken 03/25/16] cloZAPine [Clozaril (*)] 250 mg PO HS 03/26/16 [Last Taken 03/25/16] metFORMIN HCL [Glucophage 500 mg (*)] 500 mg PO BIDMEAL 04/22/16 [Last Taken Unknown] Acetaminophen [Tylenol 325mg (*)] 650 mg PO Q4HRS PRN #0 tab 04/26/16 [Last Taken Unknown] Vancomycin [Vancocin Oral Liquid] 250 mg PO QID #56 udl 04/26/16 [Last Taken Unknown] predniSONE 20 mg PO BIDMEAL #0 tablet 04/26/16 [Last Taken Unknown] Discharge Medications: Refer to the Discharge Home Medication list for PRN reason. - Orders Services needed: Registered Nurse, Physical Therapy, Occupational Therapy Diet Recommendation: no restrictions on diet Diet Texture: Regular Texture Diet - Follow Up Care Current Providers and Referrals: Camilla Bangura MD [Medical Doctor] - Rohit Penny MD [Medical Doctor] - JOURDAN TRIANA [Primary Care Provider] - As per Instructions
[2016-04-28] MEDS: INSULIN LISPRO 100 UNIT/ML SC SCH (09:47)
[2016-04-28] MEDS: ENOXAPARIN 40 MG/0.4 ML SYR SC SCH (09:48)
[2016-04-28] MEDS: cloZAPine 100 MG TAB PO SCH (09:48)
[2016-04-28] MEDS: PALIPERIDONE 9 MG TAB.ER PO SCH (09:48)
[2016-04-28] MEDS: buPROPion XL 150 MG TAB PO SCH (09:48)
[2016-04-28] MEDS: CLOTRIMAZOLE 1% 15 GM CRTUBE TP SCH (09:51)
[2016-04-28] MEDS: PANTOPRAZOLE SODIUM 40 MG TAB PO SCH (09:52)
[2016-04-28] MEDS: predniSONE 20 MG TAB PO SCH (09:52)
[2016-04-28 10:57] VITALS: BP 129/84; PULSE 106; RESP 18
--- NOTE | 2016-04-28 16:53 | GDS ---
[f rep st] DISCHARGE SUMMARY DISCHARGE DIAGNOSES: 1. Acute recurrent Clostridium difficile colitis. 2. Chemotherapy-related colitis. 3. Sinus tachycardia, resolved with fluid resuscitation. 4. Acute encephalopathy secondary to acute illness and hyponatremia. 5. Hypovolemic hyponatremia. 6. History of pulseless electrical activity arrest. 7. Schizoaffective disorder. 8. Gastroesophageal reflux disease. 9. Dyslipidemia. 10. Metastatic melanoma, receiving active treatment. HISTORY OF PRESENT ILLNESS: A 56-year-old male with schizoaffective disorder, metastatic melanoma, who presents with complaints of weakness. For details of patient's initial presentation, please see the history and physical dated 04/22/2016. CONSULTATIVE SERVICES: Include Gastroenterology. PROCEDURES: 04/23/2016, patient had abdominal x-ray that showed colon distention. HOSPITAL COURSE BY ISSUE: 1. Acute diarrhea. The patient was known to have chemotherapy-related colitis, has been on prednis one taper for this diagnosis. Had additionally been treated previously with oral vancomycin for C d ifficile colitis. Patient re-presented with voluminous watery stools and toxin testing for C diffic ile was recurrently positive. Patient was initiated on high-dose oral vancomycin at 250 mg p.o. q.i .d. with rapid improvement in frequency and form of his stool. The patient will complete a 2-week c ourse of 250 mg q.i.d. vancomycin and follow with outpatient Infectious Disease and Oncology post di sposition. 2. Chemotherapy-related colitis. The patient will be continued on his previous prednisone taper pe [facility]. 3. Metastatic melanoma. The patient is actively followed by [facility]. 4. Hyponatremia secondary to hypovolemia. The patient was fluid resuscitated and had normalization of his sodium. Does have a history previously of polydipsia related to hyponatremia in the setting of serious diarrhea. We believe this was a different presentation. MEDICATIONS AT TIME OF DISPOSITION: Please reference medication reconciliation printed on 7. FOLLOWUP APPOINTMENTS: 1. Include Dr. Penny with Gastroenterology. 2. Dr. Bangura at [facility]. 3. Infectious Disease as an outpatient after completion of his oral vancomycin therapy for monitori ng and ongoing recommendations related to his recurrences. TIME SPENT: I spent greater than 30 minutes in the planning and coordination of this discharge. /[id number]/MODL
== END 2016-04-28 11:23 | DRG 371 ==
LOC: EDUNIT# → EDBD → INTOOBSV 02:16 → F3N 03:41 → OBSVTOIN 04-23 15:08 → F3E 04-23 17:39
PROVIDERS: ADMIT Internal Medicine; ATTEND Internal Medicine
DX: A04.7 Enterocolitis due to Clostridium difficile (principal); G93.49 Other encephalopathy; K52.1 Toxic gastroenteritis and colitis; E87.1 Hypo-osmolality and hyponatremia; R00.0 Tachycardia, unspecified; T45.1X5A Adverse effect of antineoplastic and immunosuppressive drugs, initial encounter; C43.9 Malignant melanoma of skin, unspecified; F25.9 Schizoaffective disorder, unspecified; K21.9 Gastro-esophageal reflux disease without esophagitis; E78.5 Hyperlipidemia, unspecified; E11.9 Type 2 diabetes mellitus without complications; R63.1 Polydipsia; Z86.718 Personal history of other venous thrombosis and embolism
CPT/HCPCS: 97116-GP; 97161-GP; 97165-GO; 97535-GO; G0378; G8978-GP-CI; G8979-GP-CI; G8987-GO-CK; G8988-GO-CJ; J1650; J1815